=== PATIENT | male | born 1940 | race Caucasian/White ===

== ENCOUNTER 2019-12-21 11:56 | Emergency (ER) | payer MEDICARE, SELFPAY ==
--- NOTE | 2019-12-21 12:00 | ED_ITS ---
Documented by User: ROVERTO Carreon 12/21/19 15:41 HPI - SOB/Dyspnea General: Chief Complaint: Shortness of Breath/Dyspnea Stated Complaint: THINKS HE HAS COVID19 Time Seen by Provider: 12/21/19 12:00 Source: patient Mode of arrival: ambulatory Limitations: no limitations History of Present Illness: HPI Narrative: Patient is a 79-year-old male who presents to ED today with a complaint of shortness of breath and difficulty breathing over the past 3 weeks. Patient notices he becomes very short of breath with any form of exertion and especially with lying flat. He has began noticing bilateral lower extremity leg swelling. He states he has been having intermittent twinges in his chest. Patient does have a previous history of a [place] almost a decade ago and currently has 3 cardiac stents. He has HTN. He denies PND but states he does have anxiety about going to sleep due to the difficulty of breathing. He has not been coughing. No fevers. No recent travel or positive COVID individual exposure. He denies palpitations. MD elicited complaint: shortness of breath Pertinent past history: other (CAD, HTN) Onset (ago): week(s) Timing: constant Severity: moderate Exacerbating factors: lying flat and exertion Relieving factors: upright position Associated symptoms: Reports chest pain, orthopnea and other (LE edema); Deny abdominal pain, chest congestion, fever(s), hemoptysis, lightheadedness, nausea, palpitations, syncope or vomiting Treatment prior to arrival: none Review of Systems Const: Denies: fever(s), chills, body aches, fatigue or malaise Eyes: Denies: change in vision or blurry vision ENMT: Denies: throat pain, enlarged tonsils or odynophagia Card: Reports: chest pain, edema, swelling of feet/ankles, dyspnea on exertion and orthopnea; Denies: palpitations, irregular heart rhythm, lightheadedness, syncope, pre- syncope, leg pain with exertion or acrocyanosis Resp: Reports: dyspnea; Denies: productive cough, non-productive cough, wheezing, stridor, pain on inspiration, change in phlegm color, hemoptysis or chest congestion GI: Denies: abdominal pain, nausea, vomiting, heartburn or diarrhea : Denies: flank pain, difficulty urinating, dysuria, urinary frequency, urinary urgency or urinary hesitancy Musc: Denies: neck pain, back pain or joint pain Skin/Breast: Denies: rash Neuro: Denies: headache(s), numbness in extremities, weakness in extremities or sensory changes PFSH ED PFSH: Social History Smoking and tobacco status: never smoked Physical Exam Const: COMMON NORMALS: no acute distress, patient oriented x3, no limitations and alert HENMT: COMMON NORMALS: normocephalic and atraumatic HEAD & SCALP: normocephalic and atraumatic Neck/C-Spine: COMMON NORMALS: full ROM and no lymphadenopathy GENERAL: No anterior neck swelling, No JVD and No Mass present (neck) Chest: COMMONS NORMALS: normal inspection of the chest and normal palpation of entire chest wall Resp: COMMON NORMALS: normal respiratory effort and clear to auscultation bilaterally AUSCULTATION: clear to auscultation bilaterally Cardio: COMMON NORMALS: regular rate RATE: regular rate RHYTHM: abnormal rhythm irregularly irregular Extremity: COMMON NORMALS: full ROM, capillary refill normal, no joint enlargement and no calf tenderness GENERAL: Yes edema (bilateral 2+ pitting edema ) Neuro: COMMON NORMALS: patient oriented x3 SENSORIUM/ORIENTATION: Yes alert Skin: COMMON NORMALS: no rashes or lesions noted GENERAL SKIN EXAM: no rashes or lesions noted Course Consultations: Consultation #1: Dr. Cooper-cardiology electronic data processing auditor who agrees with plan for IV lasix here and then recommends 40mg BID lasix at home x 4 days then 40mg lasix daily and also recommends placing patient on Eliquis Vital Signs: Vital signs: Vital Signs Temperature 98.0 F 12/21/19 12:03 Pulse Rate 89 12/21/19 14:45 Respiratory Rate 17 12/21/19 14:45 Blood Pressure 163/78 12/21/19 14:45 Pulse Oximetry 95 12/21/19 14:45 MDM - SOB/Dyspnea MDM Narrative: Medical decision making narrative: Patient comes in with complaints of shortness of breath mainly with lying flat and exertion over the past 3 weeks. Clinically patient is fluid overloaded with bilateral lower extremity 2+ pitting edema. BNP is roughly 1900, he has cardiomegaly on his CXR, and trace bilateral effusions. Patient also found to have new onset atrial fibrillation. Patient was offered admission to the hospital however would like to follow-up with his PCP Dr. Armendariz. I spoke to the soaking pit operator on-call who agreed with IV Lasix here and placing patient on Lasix at home as well as placing him on anticoagulation for the atrial fibrillation. Dr. Kline also saw patient and agrees with work-up and treatment plan. Lab Data: Labs: Lab Results 12/21/19 12/21/19 12/21/19 Range/Units 12:57 12:57 12:57 WBC 6.1 (4.0-10.0) 10^3/ uL RBC 4.29 (4.1-5.3) 10^6/u L Hgb 14.0 (11.7-16.6) g/dL Hct 43.0 (42.0-52.0) % MCV 100.2 H (80-94) fL MCH 32.6 (28.0-34.0) pg MCHC 32.6 (30.0-36.0) g/dL RDW 14.0 (12.1-15.1) % Plt Count 111 L (130-400) 10^3/c mm MPV 10.9 H (7.4-10.4) fL Neut % (Auto) 77.3 % Lymph % (Auto) 11.2 % Murray % (Auto) 10.2 % Eos % (Auto) 0.5 % Baso % (Auto) 0.3 % Neut # (Auto) 4.7 (1.8-7.7) 10^3/u L Lymph # (Auto) 0.7 L (0.8-4.8) 10^3/u L Murray # (Auto) 0.6 (0.2-0.9) 10^3/u L Eos # (Auto) 0.0 (0.0-0.8) 10^3/u L Baso # (Auto) 0.0 (0.0-0.1) 10^3/u L Nucleated RBC % (a uto) 0 % Nucleated RBCs # 0.0 /100WBC Sodium 137 (136-145) mmol/L Potassium 4.5 (3.5-5.1) mmol/L Chloride 102 (98-107) mmol/L Carbon Dioxide 23 (22-29) mmol/L Anion Gap 16.5 (5-19) BUN 12 (8-23) mg/dL Creatinine 0.7 (0.7-1.2) mg/dL Glucose 131 H (65-115) mg/dL Calculated Osmolal ity 282 L (285-295) mOsm/k g Calcium 8.4 L (8.5-10.5) mg/dL Total Bilirubin 0.9 (0.15-1.2) mg/dL AST 24 (0-40) U/L ALT 30 (0-41) U/L Alkaline Phosphata se 72 (40-130) IU/L Troponin T Baselin e 11 (0-15) ng/mL NT-Pro-B Natriuret Pep 1960 H (0-450) pg/mL Total Protein 5.5 L (6.6-8.7) g/dL Albumin 4.2 (3.5-5.2) g/dL Globulin 1.3 (1.3-4.6) g/dL TSH (0.27-4.20) uIU/ mL 12/21/19 Range/Units 12:57 WBC (4.0-10.0) 10^3/ uL RBC (4.1-5.3) 10^6/u L Hgb (11.7-16.6) g/dL Hct (42.0-52.0) % MCV (80-94) fL MCH (28.0-34.0) pg MCHC (30.0-36.0) g/dL RDW (12.1-15.1) % Plt Count (130-400) 10^3/c mm MPV (7.4-10.4) fL Neut % (Auto) % Lymph % (Auto) % Murray % (Auto) % Eos % (Auto) % Baso % (Auto) % Neut # (Auto) (1.8-7.7) 10^3/u L Lymph # (Auto) (0.8-4.8) 10^3/u L Murray # (Auto) (0.2-0.9) 10^3/u L Eos # (Auto) (0.0-0.8) 10^3/u L Baso # (Auto) (0.0-0.1) 10^3/u L Nucleated RBC % (a uto) % Nucleated RBCs # /100WBC Sodium (136-145) mmol/L Potassium (3.5-5.1) mmol/L Chloride (98-107) mmol/L Carbon Dioxide (22-29) mmol/L Anion Gap (5-19) BUN (8-23) mg/dL Creatinine (0.7-1.2) mg/dL Glucose (65-115) mg/dL Calculated Osmolal ity (285-295) mOsm/k g Calcium (8.5-10.5) mg/dL Total Bilirubin (0.15-1.2) mg/dL AST (0-40) U/L ALT (0-41) U/L Alkaline Phosphata se (40-130) IU/L Troponin T Baselin e (0-15) ng/mL NT-Pro-B Natriuret Pep (0-450) pg/mL Total Protein (6.6-8.7) g/dL Albumin (3.5-5.2) g/dL Globulin (1.3-4.6) g/dL TSH 2.38 (0.27-4.20) uIU/ mL Imaging Data^: CXR: Radiologist's impression: [address] [address] XRay Report Signed Patient: Jamshid Schaffer Unit #: [id number] : 1940 Age/Sex: 79 / M ADM Date: 12/21/19 Loc: ER Room/Bed: Attending Dr: Ordering Provider/Ordering MD: Lexi Zavala Date of Service: 12/21/19 Procedure(s): XR chest 1V portable [id number] Accession Number(s): [id number] Report Number: [id number] PROCEDURE INFORMATION: Exam: XR Chest, 1 View Exam date and time: 12/21/2019 12:35 PM Age: 79 years old Clinical indication: Cough; Prior surgery; Surgery type: Stents; Additional info: Chest pain TECHNIQUE: Imaging protocol: XR of the chest Views: 1 view. COMPARISON: No relevant prior studies available. FINDINGS: Lungs: No confluent infiltrate evident. Pleural space: Indistinct costophrenic angles may indicate small pleural effusions. Heart/Mediastinum: Mild cardiomegaly. Vasculature: Tortuous/ectatic aorta. Bones/joints: Unremarkable. XR/XR chest 1V portable [id number] IMPRESSION: Mild cardiomegaly. Tortuous aorta. Possible small pleural effusions. Dictated By: Evangelista Lee MD Signed By: Evangelista Lee MD Signed Date/Time: 12/21/191312 DD/ 1312 EKG Data^: EKG 1: EKG Interpretation Date: 12/21/19 EKG interpretation time: 13:04 Interpretation: Atrial fibrillation Rate [address] elevation or depression noted Discharge Plan Discharge Patient Disposition: Home, Self-Care Clinical Impression: New onset atrial fibrillation Congestive heart failure Qualifiers: Heart failure type: unspecified Heart failure chronicity: acute Qualified Code(s): I50.9 - Heart failure, unspecified Condition: Stable Prescriptions: New furosemide 40 mg tablet 40 mg PO BID Qty: 30 RF: 0 Eliquis 5 mg tablet 5 mg PO BID Qty: 60 RF: 0 No Action losartan 50 mg tablet 50 mg PO DAILY RF: 0 clonidine HCl 0.1 mg tablet 0.1 mg PO BID RF: 0 aspirin 325 mg Tablet 325 mg PO DAILY RF: 0 atenolol 100 mg tablet 100 mg PO DAILY RF: 0 clopidogrel 75 mg tablet 75 mg PO DAILY RF: 0 simvastatin 40 mg tablet 40 mg PO DAILY RF: 0 nitroglycerin 0.4 mg tablet, sublingual 0.4 mg sublingual PRN PRN (Reason: Chest Pain) RF: 0 Discharge Orders: Discharge Order (Routine); Ordered 12/21/19 Ordered By: Lexi Zavala Patient Instructions: Congestive Heart Failure, Atrial Fibrillation (ED) Activity Restrictions/Additional Instructions: As discussed please follow up with your primary care provider as soon as possible next week to discuss outpatient work up and management. Again we have offerred you admission to the hospital but you have declined. You may return to the ED at any time for any concerns you may have. Discharge Date/Time: 12/21/19 14:29 Coding Level of Care Code ED Order Entry Representative for Chg Fwd Exam Comprehensive Documented by User: Leti Kline MD 12/23/19 19:10 HPI - SOB/Dyspnea General: Chief Complaint: Shortness of Breath/Dyspnea Stated Complaint: THINKS HE HAS COVID19 Time Seen by Provider: 12/21/19 12:00 [facility] ED PFSH: Social History Smoking and tobacco status: never smoked Course ED course: I saw this patient with Lexi, he came in for shortness of breath and leg swelling. he was found to have new onset atrial fib - rate controlled - and CHF. He does not want to be admitted to the hospital. He wants to follow up with Dr. Armendariz early next week. We discussed the plan for lady durbin, outpatient work up. He understands need to return if worsening. Lungs are clear - he is able to speak in full sentances. Vital Signs: Vital signs: Vital Signs Temperature 98.0 F 12/21/19 12:03 Pulse Rate 89 12/21/19 14:45 Respiratory Rate 17 12/21/19 14:45 Blood Pressure 163/78 12/21/19 14:45 Pulse Oximetry 95 12/21/19 14:45 MDM - SOB/Dyspnea Lab Data: Labs: Lab Results 12/21/19 12/21/19 12/21/19 Range/Units 12:57 12:57 12:57 WBC 6.1 (4.0-10.0) 10^3/ uL RBC 4.29 (4.1-5.3) 10^6/u L Hgb 14.0 (11.7-16.6) g/dL Hct 43.0 (42.0-52.0) % MCV 100.2 H (80-94) fL MCH 32.6 (28.0-34.0) pg MCHC 32.6 (30.0-36.0) g/dL RDW 14.0 (12.1-15.1) % Plt Count 111 L (130-400) 10^3/c mm MPV 10.9 H (7.4-10.4) fL Neut % (Auto) 77.3 % Lymph % (Auto) 11.2 % Murray % (Auto) 10.2 % Eos % (Auto) 0.5 % Baso % (Auto) 0.3 % Neut # (Auto) 4.7 (1.8-7.7) 10^3/u L Lymph # (Auto) 0.7 L (0.8-4.8) 10^3/u L Murray # (Auto) 0.6 (0.2-0.9) 10^3/u L Eos # (Auto) 0.0 (0.0-0.8) 10^3/u L Baso # (Auto) 0.0 (0.0-0.1) 10^3/u L Nucleated RBC % (a uto) 0 % Nucleated RBCs # 0.0 /100WBC Sodium 137 (136-145) mmol/L Potassium 4.5 (3.5-5.1) mmol/L Chloride 102 (98-107) mmol/L Carbon Dioxide 23 (22-29) mmol/L Anion Gap 16.5 (5-19) BUN 12 (8-23) mg/dL Creatinine 0.7 (0.7-1.2) mg/dL Glucose 131 H (65-115) mg/dL Calculated Osmolal ity 282 L (285-295) mOsm/k g Calcium 8.4 L (8.5-10.5) mg/dL Total Bilirubin 0.9 (0.15-1.2) mg/dL AST 24 (0-40) U/L ALT 30 (0-41) U/L Alkaline Phosphata se 72 (40-130) IU/L Troponin T Baselin e 11 (0-15) ng/mL NT-Pro-B Natriuret Pep 1960 H (0-450) pg/mL Total Protein 5.5 L (6.6-8.7) g/dL Albumin 4.2 (3.5-5.2) g/dL Globulin 1.3 (1.3-4.6) g/dL TSH (0.27-4.20) uIU/ mL 12/21/19 Range/Units 12:57 WBC (4.0-10.0) 10^3/ uL RBC (4.1-5.3) 10^6/u L Hgb (11.7-16.6) g/dL Hct (42.0-52.0) % MCV (80-94) fL MCH (28.0-34.0) pg MCHC (30.0-36.0) g/dL RDW (12.1-15.1) % Plt Count (130-400) 10^3/c mm MPV (7.4-10.4) fL Neut % (Auto) % Lymph % (Auto) % Murray % (Auto) % Eos % (Auto) % Baso % (Auto) % Neut # (Auto) (1.8-7.7) 10^3/u L Lymph # (Auto) (0.8-4.8) 10^3/u L Murray # (Auto) (0.2-0.9) 10^3/u L Eos # (Auto) (0.0-0.8) 10^3/u L Baso # (Auto) (0.0-0.1) 10^3/u L Nucleated RBC % (a uto) % Nucleated RBCs # /100WBC Sodium (136-145) mmol/L Potassium (3.5-5.1) mmol/L Chloride (98-107) mmol/L Carbon Dioxide (22-29) mmol/L Anion Gap (5-19) BUN (8-23) mg/dL Creatinine (0.7-1.2) mg/dL Glucose (65-115) mg/dL Calculated Osmolal ity (285-295) mOsm/k g Calcium (8.5-10.5) mg/dL Total Bilirubin (0.15-1.2) mg/dL AST (0-40) U/L ALT (0-41) U/L Alkaline Phosphata se (40-130) IU/L Troponin T Baselin e (0-15) ng/mL NT-Pro-B Natriuret Pep (0-450) pg/mL Total Protein (6.6-8.7) g/dL Albumin (3.5-5.2) g/dL Globulin (1.3-4.6) g/dL TSH 2.38 (0.27-4.20) uIU/ mL Discharge Plan Discharge Patient Disposition: Home, Self-Care Clinical Impression: New onset atrial fibrillation Congestive heart failure Qualifiers: Heart failure type: unspecified Heart failure chronicity: acute Qualified Code(s): I50.9 - Heart failure, unspecified Condition: Stable Prescriptions: New furosemide 40 mg tablet 40 mg PO BID Qty: 30 RF: 0 Eliquis 5 mg tablet 5 mg PO BID Qty: 60 RF: 0 No Action losartan 50 mg tablet 50 mg PO DAILY RF: 0 clonidine HCl 0.1 mg tablet 0.1 mg PO BID RF: 0 aspirin 325 mg Tablet 325 mg PO DAILY RF: 0 atenolol 100 mg tablet 100 mg PO DAILY RF: 0 clopidogrel 75 mg tablet 75 mg PO DAILY RF: 0 simvastatin 40 mg tablet 40 mg PO DAILY RF: 0 nitroglycerin 0.4 mg tablet, sublingual 0.4 mg sublingual PRN PRN (Reason: Chest Pain) RF: 0 Discharge Orders: Discharge Order (Routine); Ordered 12/21/19 Ordered By: Lexi Zavala Patient Instructions: Congestive Heart Failure, Atrial Fibrillation (ED) Activity Restrictions/Additional Instructions: As discussed please follow up with your primary care provider as soon as possible next week to discuss outpatient work up and management. Again we have offerred you admission to the hospital but you have declined. You may return to the ED at any time for any concerns you may have. Discharge Date/Time: 12/21/19 14:29 Coding Level of Care Code ED Order Entry Representative for Susan Fwd Exam Comprehensive
[2019-12-21 12:03] VITALS: BP 191/136; PULSE 91; RESP 18; TEMP 36.7; O2SAT 96; BMI 31.4
[2019-12-21 13:08] LABS: Basophils % 0.3 %; Eosinophils % 0.5 %; Lymphocytes # 0.7 10^3/uL (0.8-4.8); Lymphocytes % 11.2 %; Mean Corpuscular HGB Conc 32.6 g/dL (30.0-36.0); Mean Corpuscular Hemoglobin 32.6 pg (28.0-34.0); Mean Corpuscular Volume 100.2 fL (80-94); Mean Platelet Volume 10.9 fL (7.4-10.4); Monocytes # 0.6 10^3/uL (0.2-0.9); Monocytes % 10.2 %; Neutrophils # 4.7 10^3/uL (1.8-7.7); Neutrophils % 77.3 %; Nucleated Red Blood Cells % 0 %; Platelet Count 111 10^3/cmm (130-400); Red Blood Count 4.29 10^6/uL (4.1-5.3); White Blood Count 6.1 10^3/uL (4.0-10.0)
[2019-12-21 13:20] VITALS: BP 150/78; O2SAT 96
[2019-12-21 13:22] LABS: Troponin(5th) Baseline 11 ng/mL (0-15)
[2019-12-21 13:31] LABS: Alanine Aminotransferase 30 U/L (0-41); Albumin Level 4.2 g/dL (3.5-5.2); Alkaline Phosphatase 72 IU/L (40-130); Anion Gap 16.5 (5-19); Aspartate Amino Transferase 24 U/L (0-40); Blood Urea Nitrogen 12 mg/dL (8-23); Calcium 8.4 mg/dL (8.5-10.5); Carbon Dioxide 23 mmol/L (22-29); Chloride 102 mmol/L (98-107); Globulin 1.3 g/dL (1.3-4.6); Glucose 131 mg/dL (65-115); NT Pro B Type Natriuretic Pept 1960 pg/mL (0-450); Osmolality Calculated 282 mOsm/kg (285-295); Potassium 4.5 mmol/L (3.5-5.1); Sodium 137 mmol/L (136-145); Total Bilirubin 0.9 mg/dL (0.15-1.2); Total Protein 5.5 g/dL (6.6-8.7)
[2019-12-21 14:06] LABS: Thyroid Stimulating Hormone 2.38 uIU/mL (0.27-4.20)
[2019-12-21] MEDS: FUROsemide 10 mg/mL SDV 10mL 60 MG IVP (14:19)
[2019-12-21 14:45] VITALS: BP 163/78; PULSE 89; RESP 17; O2SAT 95
--- NOTE | 2019-12-21 17:59 | ECG_ITS ---
Measurements Intervals [place] Rate: 76 P: IA: 0 QRS: 81 QRSD: 90 T: 4 QT: 410 QTc: 463 ATRIAL FIBRILLATION ABNORMAL RHYTHM ECG No previous ECG available for comparison Electronically Signed On 12-22-2019 11:10:42 CDT by Ronnie Bergeron MD [id number]
--- NOTE | 2019-12-27 11:31 | DCPLANNER ---
Patient is to follow up with primary care physician, Dr. Laguna. Patient did have an appointment scheduled for 12.25.19 and he did attend the appointment.
== END 2019-12-21 14:29 | disposition home or self-care (01) ==
PROVIDERS: Emergency Provider Physician Assistant
DX: I48.91 Unspecified atrial fibrillation (principal); I50.9 Heart failure, unspecified; Z79.82 Long term (current) use of aspirin; Z79.02 Long term (current) use of antithrombotics/antiplatelets
CPT/HCPCS: 12345; 36415; 71045; 80053; 83880; 84443; 84484; 85025; 93005; 93010; 96374; 96375; 99282; 99283; J1940

== ENCOUNTER 2019-12-29 20:05 | Emergency (ER) | payer MEDICARE, SELFPAY ==
[2019-12-29 20:17] VITALS: BP 153/82; PULSE 71; RESP 14; TEMP 36.3; O2SAT 96; BMI 31.4
--- NOTE | 2019-12-29 20:49 | W.ED.EPISTAX ---
HPI - Epistaxis General: Chief complaint: Epistaxis Stated complaint: nosebleed Time Seen by Provider: 12/29/19 20:44 Source: patient Mode of arrival: ambulatory Limitations: no limitations History of Present Illness: HPI Narrative: 79-year-old male who states he started Eliquis last week due to A. fib. Patient states that roughly 1-1/2 hours ago he started having nosebleed from the left nostril. He states that he has not been able to get it to stop. He denies any pain or injuries. Denies any worsening or improving factors. complaint: epistaxis Location: right nostril Onset (ago): hour(s) Duration: constant Context: other anticoagulant use Associated symptoms: Deny fever(s), headache(s) or vomiting Review of Systems Const: Denies: fever(s), chills, body aches or change in appetite Eyes: Denies: blurry vision or eye discomfort ENMT: Reports: epistaxis; Denies: throat pain or dental pain Card: Denies: chest pain Resp: Denies: dyspnea GI: Denies: abdominal pain, nausea, vomiting or diarrhea : Denies: dysuria Musc: Denies: neck pain or back pain Skin/Breast: Denies: rash Neuro: Denies: headache(s) Psych: Denies: depression Hermelindo/Lymph: Denies: easy bruising All/Imm: Denies: urticaria PFSH ED PFSH: Social History Smoking and tobacco status: former smoker Physical Exam Const: COMMON NORMALS: no acute distress, patient oriented x3 and healthy appearing HENMT: COMMON NORMALS: normocephalic and atraumatic HEAD & SCALP: normocephalic and atraumatic OTHER: Bleeding from left nare currently Eye: COMMON NORMALS: Equal, round and reactive pupils present and EOMs intact bilaterally PUPIL: Yes Equal, round and reactive pupils present Neck/C-Spine: COMMON NORMALS: full ROM and supple Chest: COMMONS NORMALS: normal inspection of the chest and normal palpation of entire chest wall Resp: COMMON NORMALS: normal respiratory effort, No retractions, No use of accessory muscles and clear to auscultation bilaterally AUSCULTATION: clear to auscultation bilaterally Cardio: COMMON NORMALS: regular rate, regular rhythm and No murmurs present (Cardio) RATE: regular rate RHYTHM: regular rhythm GI: COMMON NORMALS: Normal to inspection, nondistended, normoactive bowel sounds present, Soft to palpation, non-tender and no masses PALPATION: Yes Soft to palpation Extremity: COMMON NORMALS: normal to inspection and full ROM Neuro: COMMON NORMALS: patient oriented x3, moves all extremities and no focal motor deficits Psych: COMMON NORMALS: mental status grossly normal, Normal thought process present and cooperative THOUGHT PROCESS: Normal thought process present Skin: COMMON NORMALS: no rashes or lesions noted and no wounds GENERAL SKIN EXAM: no rashes or lesions noted Course Vital Signs: Vital signs: Vital Signs Temperature 97.3 F L 12/29/19 20:17 Pulse Rate 71 12/29/19 20:17 Respiratory Rate 14 12/29/19 20:17 Blood Pressure 153/82 12/29/19 20:17 Pulse Oximetry 96 12/29/19 20:17 MDM - Epistaxis MDM Narrative: Medical decision making narrative: Patient presents with epistaxis that is since resolved. I informed him on how to treat his nosebleeds at home. He is to follow-up with Dr. Cristobal ENT outpatient and return the ER if worsening. He understands agrees to plan. Lab Data: Labs: Lab Results 12/29/19 Range/Units 20:30 PT 16.00 H (10.5-13.3) SECO NDS INR 1.24 H (0.8-1.2) Discharge Plan Discharge Patient Disposition: Home, Self-Care Clinical Impression: Epistaxis Condition: Stable Prescriptions: No Action losartan 50 mg tablet 50 mg PO DAILY RF: 0 clonidine HCl 0.1 mg tablet 0.1 mg PO BID RF: 0 aspirin 325 mg Tablet 325 mg PO DAILY RF: 0 atenolol 100 mg tablet 100 mg PO DAILY RF: 0 clopidogrel 75 mg tablet 75 mg PO DAILY RF: 0 simvastatin 40 mg tablet 40 mg PO DAILY RF: 0 nitroglycerin 0.4 mg tablet, sublingual 0.4 mg sublingual PRN PRN (Reason: Chest Pain) RF: 0 furosemide 40 mg tablet 40 mg PO BID Qty: 30 RF: 0 Eliquis 5 mg tablet 5 mg PO BID Qty: 60 RF: 0 Discharge Orders: Discharge Order (Routine); Ordered 12/29/19 Ordered By: Jaxon Mai Referrals: Paul Cuellar MD [Physician] - 1-3 days Discharge Diet: Advance as tolerated Discharge Activity: Resume usual activity Patient Instructions: Epistaxis (ED) Coding Level of Care Code ED Tank Pumper Panelboard for Chg Fwd Exam Comprehensive
[2019-12-29] MEDS: oxymetazoline 0.05% Nasal Spray 15 mL 2 SPRAY NOSTRIL-B (20:51)
[2019-12-29 20:52] LABS: INR 1.24 (0.8-1.2)
[2019-12-29 23:21] VITALS: BP 132/84; PULSE 76; RESP 16; O2SAT 98
--- NOTE | 2020-01-01 11:34 | DCPLANNER ---
education and training manager had message to schedule a follow up appointment for patient with Dr. Cuellar, ENT. education and training manager faxed patients information to the office of Dr. Cuellar. Clinic will call high risk case manager and patient with appointment information.
--- NOTE | 2020-01-15 14:54 | DCPLANNER ---
city maintenance manager spoke with Dr. Ge office to confirm that a follow up appointment had been scheduled for patient with Dr. Cuellar. city maintenance manager was told patient was called and offered to schedule a follow up appointment for patient, he declined at this time.
== END 2019-12-29 23:23 | disposition home or self-care (01) ==
PROVIDERS: Emergency Provider Emergency Medicine
DX: R04.0 Epistaxis (principal); Z79.02 Long term (current) use of antithrombotics/antiplatelets; Z79.82 Long term (current) use of aspirin; Z79.01 Long term (current) use of anticoagulants; Z87.891 Personal history of nicotine dependence
CPT/HCPCS: 12345; 36415; 85610; 99281; 99283

== ENCOUNTER 2020-02-13 14:09 | Outpatient (CLI) | payer MEDICARE, SELFPAY ==
--- NOTE | 2020-02-13 14:15 | USCV_ITS ---
Jamshid Schaffer Age: 79 Gender: M : 1940 Exam Date: 02/13/2020 14:28 Ordering Phys: Sandrita Rockwell MD ([email or web address]) Technologist: Marissa Burr Exam Location: [facility] – [place] Indication: MUMUR BP: / HR: 76 Rhythm: Sinus Technical Quality: Fair MEASUREMENTS (Male / Female) Normal Values 2D ECHO LV Diastolic Diameter PLAX 4.5 cm 4.2 - 5.9 / 3.9 - 5.3 cm LV Systolic Diameter PLAX 2.9 cm LV Chamber Size 4.0 cm IVS Diastolic Thickness 1.2 cm 0.6 - 1.0 / 0.6 - 0.9 cm IVS Systolic Thickness 1.2 cm LVPW Diastolic Thickness 1.4 cm 0.6 - 1.0 / 0.6 - 0.9 cm LVPW Systolic Thickness 1.8 cm RV Chamber Size 3.7 cm LVOT Diameter 2.0 cm LV Ejection Fraction 2D Teich 64.5 % LV Ejection Fraction MOD 2C 19.3 % LV Ejection Fraction 2C AL 18.3 % LA Diameter 5.0 cm LA Width 3.9 cm LA Height 5.7 cm RA Width 4.6 cm RA Height 5.9 cm Aorta at Sinotubular Diameter 3.3 cm M-MODE LV Diastolic Diameter MM 6.2 cm 4.2 - 5.9 / 3.9 - 5.3 cm LV Systolic Diameter MM 4.3 cm LV Ejection Fraction MM Teich 58.2 % IVS Diastolic Thickness MM 1.1 cm 0.6 - 1.0 / 0.6 - 0.9 cm IVS Systolic Thickness MM 1.2 cm LVPW Diastolic Thickness MM 1.1 cm 0.6 - 1.0 / 0.6 - 0.9 cm LVPW Systolic Thickness MM 1.8 cm RV Diastolic Diameter MM 1.3 cm Aortic Annulus Diameter 3.7 cm LA Ao Ratio MM 1.4 MV E Point Septal Separation 0.9 cm DOPPLER AV Peak Velocity 139.0 cm/s LVOT Peak Velocity 93.0 cm/s AV Area Cont Eq vti 1.8 cm squared AV Area Cont Eq pk 2.1 cm squared MV Area PHT 3.4 cm squared MV E' Velocity 15.0 cm/s Mitral E to MV E' Ratio 8.3 Mitral E to LV E' Lateral Ratio 7.5 Mitral E to LV E' Septal Ratio 9.3 TR Peak Velocity 274.1 cm/s TR Peak Gradient 30.1 mmHg TR Mean Velocity 225.3 cm/s TR Mean Gradient 21.5 mmHg TR Velocity Time Integral 87.3 cm TV Peak E Velocity 91.0 cm/s Right Atrial Pressure 3.0 mmHg Pulmonary Artery Systolic Pressu 33.1 mmHg PV Peak Velocity 99.0 cm/s RV Acceleration Time 0.1 s RV Ejection Time 0.3 s RV AcT/ET 0.4 FINDINGS Left Ventricle Normal left ventricular cavity size. Normal left ventricular systolic function. No regional wall motion abnormalities. Left ventricular ejection fraction is estimated at 58 %. In the presence of atrial fibrillation diastolic function cannot be assessed accurately Right Ventricle The right ventricle is normal in size and function. Mild pulmonary hypertension, RVSP 33.1 mmHg. Right Atrium Moderately increased right atrial size. Left Atrium Moderately increased left atrial size. Mitral Valve Severely thickened mitral valve. Moderate mitral annular calcification. No mitral valve stenosis. Moderate mitral valve regurgitation. Aortic Valve Moderate aortic valve calcification. Mild aortic valve stenosis, mean gradient 4.4 mmHg, EVIE 1.8 cm squared.trace aortic valve regurgitation. Tricuspid Valve Moderate to severe tricuspid valve regurgitation. Pulmonic Valve Mild pulmonary valve regurgitation. Pericardium Normal pericardium without effusion. Aorta Normal ascending aorta dimension. CONCLUSIONS 1-Normal left ventricular cavity size. Normal left ventricular systolic function. No regional wall motion abnormalities. Left ventricular ejection fraction is estimated at 58 %. In the presence of atrial fibrillation diastolic function cannot be assessed accurately. 2-The right ventricle is normal in size and function. Mild pulmonary hypertension, RVSP 33.1 mmHg. 3-Moderate biatrial enlargement 4-Severely thickened mitral valve. Moderate mitral annular calcification. No mitral valve stenosis. Moderate mitral valve regurgitation. 5-Moderate aortic valve calcification. Mild aortic valve stenosis, mean gradient 4.4 mmHg, EVIE 1.8 cm squared.trace aortic valve regurgitation. 6-Moderate to severe tricuspid valve regurgitation. 7-Mild pulmonary valve regurgitation. 8-There is no pericardial effusion. 9-Right atrial pressure is around 5 mm of mercury. 10-There are no prior echocardiogram studies to compare. Sandrita oRckwell MD (Electronically Signed) Final Date: 15 February 2020 21:12 S
== END 2020-02-13 14:10 | disposition home or self-care (01) ==
LOC: US 14:12
PROVIDERS: PCP Family Medicine; Visit Provider Internal Medicine Cardiovascular Disease
DX: R01.1 Cardiac murmur, unspecified (principal); I05.9 Rheumatic mitral valve disease, unspecified; I35.0 Nonrheumatic aortic (valve) stenosis; I07.1 Rheumatic tricuspid insufficiency
CPT/HCPCS: 93306

== ENCOUNTER 2021-11-04 14:04 | Outpatient (CLI) | payer MEDICARE, SELFPAY ==
--- NOTE | 2021-11-04 14:15 | USCV_ITS ---
Sarbjit Jamshid Age: 81 Gender: M : 1940 Exam Date: 11/04/2021 14:30 Ordering Phys: Blanca Burkett Technologist: Rony Mitchell Exam Location: [facility] – [place] Indication: HEART FAILURE BP: 130 / 82 HR: 82 Rhythm: Other Technical Quality: Adequate MEASUREMENTS (Male / Female) Normal Values 2D ECHO LV Diastolic Diameter PLAX 5.4 cm 4.2 - 5.9 / 3.9 - 5.3 cm LV Systolic Diameter PLAX 3.9 cm IVS Diastolic Thickness 0.6 cm 0.6 - 1.0 / 0.6 - 0.9 cm IVS Systolic Thickness 1.6 cm LVPW Diastolic Thickness 0.9 cm 0.6 - 1.0 / 0.6 - 0.9 cm LVPW Systolic Thickness 1.7 cm LVOT Diameter 2.0 cm LV Ejection Fraction 2D Teich 52.7 % LV Ejection Fraction MOD 2C 68.4 % LV Ejection Fraction 2C AL 70.9 % LA Diameter 4.6 cm LA Width 3.7 cm LA Height 6.8 cm RA Width 4.4 cm RA Height 6.7 cm Aorta at Sinotubular Diameter 2.4 cm M-MODE Aortic Annulus Diameter 2.9 cm LA Ao Ratio MM 1.6 DOPPLER AV Peak Velocity 134.0 cm/s LVOT Peak Velocity 89.0 cm/s AV Area Cont Eq vti 2.0 cm squared AV Area Cont Eq pk 2.1 cm squared MV Area PHT 7.1 cm squared Mitral E to A Ratio 2.4 MV E' Velocity 64.5 cm/s Mitral E to MV E' Ratio 1.7 Mitral E to LV E' Lateral Ratio 6.1 Mitral E to LV E' Septal Ratio 1.0 TR Peak Velocity 411.6 cm/s TR Peak Gradient 67.8 mmHg TR Mean Velocity 268.0 cm/s TR Mean Gradient 34.0 mmHg TR Velocity Time Integral 110.6 cm Right Atrial Pressure 3.0 mmHg Pulmonary Artery Systolic Pressu 70.8 mmHg RV Acceleration Time 0.1 s RV Ejection Time 0.3 s RV AcT/ET 0.3 FINDINGS Left Ventricle Normal left ventricular size, systolic function and wall thickness, with no diagnostic regional wall motion abnormalities. Left ventricular ejection fraction is estimated at 55-60 %. Flattened septum in systole consistent with right ventricle pressure overload. Rhythm precludes evaluation of diastolic function. Right Ventricle Mildly dilated right ventricular size and mildly decreased systolic function. Right ventricular systolic pressure 64 mmHg. Right Atrium Moderately increased right atrial size. Left Atrium Moderately increased left atrial size. Mitral Valve Mild to moderate mitral annular calcification. Mildly thickened mitral valve. Restricted movement of posterior mitral leaflet. Mild eccentric posteriorly directed mitral valve regurgitation. Aortic Valve Mildly thickened trileaflet aortic valve. No aortic valve stenosis. No aortic valve regurgitation. Tricuspid Valve Structurally normal tricuspid valve. No tricuspid valve stenosis. Gzop-cb-[id number] tricuspid valve regurgitation. Pulmonic Valve Structurally normal pulmonic valve. No pulmonary valve stenosis. Mild pulmonary valve regurgitation. Pericardium No pericardial effusion. Aorta Normal size aortic root and proximal ascending aorta. Dilated inferior vena cava. CONCLUSIONS 1. Normal left ventricular size, systolic function and wall thickness, with no diagnostic regional wall motion abnormalities. Left ventricular ejection fraction is estimated at 55-60 %. 2. Mildly dilated right ventricular size and mildly decreased systolic function. 3. Moderate biatrial enlargement. 4. Restricted movement of posterior mitral leaflet. Mild eccentric posteriorly directed mitral valve regurgitation. 5. Ruto-ky-owgonsso tricuspid valve regurgitation. 6. Flattened septum in systole consistent with right ventricle pressure overload. 7. Severe pulmonary hypertension with pulmonary pressure estimated at 64 mmHg. 8. When compared to previous echocardiogram dated 02/13/2020, pulmonary artery pressure seems to have increased significantly. Zahraa Ndiaye MD (Electronically Signed) Final Date: 09 November 2021 12:58 S
== END 2021-11-04 14:05 | disposition home or self-care (01) ==
PROVIDERS: PCP Family Medicine; Visit Provider Nurse Practitioner Family
DX: I50.9 Heart failure, unspecified (principal); I27.20 Pulmonary hypertension, unspecified; I08.1 Rheumatic disorders of both mitral and tricuspid valves
CPT/HCPCS: 93306

== ENCOUNTER → 2021-12-23 10:29 | Outpatient (BNVA) | payer MEDICARE, SELFPAY | PROVIDERS: PCP Family Medicine; Visit Provider Internal Medicine Cardiovascular Disease | DX: I11.0 Hypertensive heart disease with heart failure (principal); I50.32 Chronic diastolic (congestive) heart failure; I27.20 Pulmonary hypertension, unspecified; I25.10 Atherosclerotic heart disease of native coronary artery without angina pectoris; I48.0 Paroxysmal atrial fibrillation; Z87.891 Personal history of nicotine dependence | CPT/HCPCS: 99214 ==

== ENCOUNTER → 2022-01-06 13:28 | Outpatient (BNVA) | payer MEDICARE, SELFPAY | PROVIDERS: PCP Family Medicine; Visit Provider Family Medicine | DX: I27.0 Primary pulmonary hypertension (principal); Z79.01 Long term (current) use of anticoagulants; I50.9 Heart failure, unspecified; D69.6 Thrombocytopenia, unspecified; R73.9 Hyperglycemia, unspecified; I10 Essential (primary) hypertension; E78.5 Hyperlipidemia, unspecified; I25.10 Atherosclerotic heart disease of native coronary artery without angina pectoris; I48.91 Unspecified atrial fibrillation | CPT/HCPCS: 80053; 80061; 82607; 83036; 84443; 85025; 86769; 87635 ==

== ENCOUNTER → 2022-02-10 12:08 | Outpatient (BNVA) | payer MEDICARE, SELFPAY | PROVIDERS: PCP Family Medicine; Visit Provider Family Medicine | DX: I50.9 Heart failure, unspecified (principal); I48.91 Unspecified atrial fibrillation; D69.6 Thrombocytopenia, unspecified; Z79.01 Long term (current) use of anticoagulants | CPT/HCPCS: 85610 ==

== ENCOUNTER → 2022-02-24 09:42 | Outpatient (BNVA) | payer MEDICARE, SELFPAY | PROVIDERS: PCP Family Medicine; Visit Provider Nurse Practitioner Family | DX: I11.0 Hypertensive heart disease with heart failure (principal); I50.9 Heart failure, unspecified; I48.0 Paroxysmal atrial fibrillation | CPT/HCPCS: 99213; 99214 ==

== ENCOUNTER → 2022-04-28 11:49 | Outpatient (BNVA) | payer MEDICARE, SELFPAY | PROVIDERS: PCP Family Medicine; Visit Provider Family Medicine | DX: I27.20 Pulmonary hypertension, unspecified (principal); I50.9 Heart failure, unspecified; I48.0 Paroxysmal atrial fibrillation; I10 Essential (primary) hypertension; I25.10 Atherosclerotic heart disease of native coronary artery without angina pectoris; I27.0 Primary pulmonary hypertension; Z79.01 Long term (current) use of anticoagulants; D69.6 Thrombocytopenia, unspecified; R73.9 Hyperglycemia, unspecified; E78.5 Hyperlipidemia, unspecified; I48.91 Unspecified atrial fibrillation | CPT/HCPCS: 80053; 80061; 85025; 85610 ==

== ENCOUNTER → 2023-07-19 12:22 | Outpatient (BNVA) | payer MEDICARE, SELFPAY | PROVIDERS: PCP Family Medicine; Visit Provider Internal Medicine Cardiovascular Disease | DX: I25.10 Atherosclerotic heart disease of native coronary artery without angina pectoris (principal); I48.0 Paroxysmal atrial fibrillation; Z79.01 Long term (current) use of anticoagulants; I11.0 Hypertensive heart disease with heart failure; I50.9 Heart failure, unspecified | CPT/HCPCS: 99214 ==

== ENCOUNTER → 2023-09-28 09:55 | Outpatient (BNVA) | payer MEDICARE, SELFPAY | PROVIDERS: PCP Family Medicine; Referring Provider Family Medicine; Visit Provider Nurse Practitioner Family | DX: I25.10 Atherosclerotic heart disease of native coronary artery without angina pectoris (principal); I11.0 Hypertensive heart disease with heart failure; I50.9 Heart failure, unspecified; I48.0 Paroxysmal atrial fibrillation; Z87.891 Personal history of nicotine dependence; Z79.01 Long term (current) use of anticoagulants | CPT/HCPCS: 99214 ==

== ENCOUNTER → 2023-10-10 10:59 | Outpatient (BNVA) | payer MEDICARE, SELFPAY | PROVIDERS: PCP Family Medicine; Visit Provider Family Medicine | DX: I25.10 Atherosclerotic heart disease of native coronary artery without angina pectoris (principal); I10 Essential (primary) hypertension; I50.9 Heart failure, unspecified | CPT/HCPCS: 80053; 80061; 84443; 85025 ==

== ENCOUNTER → 2024-01-17 11:55 | Outpatient (BNVA) | payer MEDICARE, SELFPAY | PROVIDERS: PCP Family Medicine; Visit Provider Internal Medicine Cardiovascular Disease | DX: I25.10 Atherosclerotic heart disease of native coronary artery without angina pectoris (principal); I48.0 Paroxysmal atrial fibrillation; I11.0 Hypertensive heart disease with heart failure; I50.9 Heart failure, unspecified; Z79.01 Long term (current) use of anticoagulants; I27.20 Pulmonary hypertension, unspecified; D69.6 Thrombocytopenia, unspecified; Z95.5 Presence of coronary angioplasty implant and graft; Z87.891 Personal history of nicotine dependence | CPT/HCPCS: 99214 ==

== ENCOUNTER → 2024-01-18 15:09 | Outpatient (BNVA) | payer MEDICARE, SELFPAY | PROVIDERS: PCP Family Medicine; Visit Provider Family Medicine | DX: D69.6 Thrombocytopenia, unspecified (principal); Z79.01 Long term (current) use of anticoagulants | CPT/HCPCS: 80053; 80503; 82607; 85025; 85610; 85651; 86140 ==

== ENCOUNTER → 2024-02-13 11:14 | Outpatient (BNVA) | payer MEDICARE, SELFPAY | PROVIDERS: PCP Family Medicine; Visit Provider Family Medicine | DX: I48.91 Unspecified atrial fibrillation (principal) | CPT/HCPCS: 85610 ==

== ENCOUNTER → 2024-03-19 11:47 | Outpatient (BNVA) | payer MEDICARE, SELFPAY | PROVIDERS: PCP Family Medicine; Visit Provider Family Medicine | DX: Z79.01 Long term (current) use of anticoagulants (principal); I10 Essential (primary) hypertension; I50.9 Heart failure, unspecified; I48.0 Paroxysmal atrial fibrillation; D69.6 Thrombocytopenia, unspecified | CPT/HCPCS: 80048; 83880; 85025; 85610 ==

== ENCOUNTER → 2024-05-22 11:10 | Outpatient (BNVA) | payer MEDICARE, SELFPAY | PROVIDERS: PCP Family Medicine; Visit Provider Family Medicine | DX: I10 Essential (primary) hypertension (principal); I50.9 Heart failure, unspecified; I25.10 Atherosclerotic heart disease of native coronary artery without angina pectoris; D69.6 Thrombocytopenia, unspecified; I48.0 Paroxysmal atrial fibrillation; Z79.01 Long term (current) use of anticoagulants | CPT/HCPCS: 80053; 80061; 85025; 85610 ==

== ENCOUNTER → 2024-10-17 12:07 | Outpatient (BNVA) | payer MEDICARE, SELFPAY | PROVIDERS: PCP Family Medicine; Visit Provider Family Medicine | DX: I50.9 Heart failure, unspecified (principal); I27.20 Pulmonary hypertension, unspecified; D69.6 Thrombocytopenia, unspecified; I48.0 Paroxysmal atrial fibrillation; Z79.01 Long term (current) use of anticoagulants; R35.1 Nocturia | CPT/HCPCS: 80053; 83880; 84153; 85025 ==

== ENCOUNTER → 2024-12-04 12:41 | Outpatient (BNVA) | payer MEDICARE, SELFPAY | PROVIDERS: PCP Family Medicine; Visit Provider Internal Medicine Cardiovascular Disease | DX: I48.0 Paroxysmal atrial fibrillation (principal); I25.10 Atherosclerotic heart disease of native coronary artery without angina pectoris; I27.20 Pulmonary hypertension, unspecified; I50.9 Heart failure, unspecified; I87.2 Venous insufficiency (chronic) (peripheral); Z87.891 Personal history of nicotine dependence; I11.0 Hypertensive heart disease with heart failure | CPT/HCPCS: 99214 ==

== ENCOUNTER → 2024-12-06 11:02 | Outpatient (BNVA) | payer MEDICARE, SELFPAY | PROVIDERS: PCP Family Medicine; Visit Provider Family Medicine | DX: Z79.01 Long term (current) use of anticoagulants (principal); I50.9 Heart failure, unspecified; I27.20 Pulmonary hypertension, unspecified; D69.6 Thrombocytopenia, unspecified; I48.0 Paroxysmal atrial fibrillation | CPT/HCPCS: 85610 ==

== ENCOUNTER → 2024-12-19 12:05 | Outpatient (BNVA) | payer MEDICARE, SELFPAY | PROVIDERS: PCP Family Medicine; Visit Provider Family Medicine | DX: R30.0 Dysuria (principal) | CPT/HCPCS: 81000 ==

== ENCOUNTER 2025-03-06 18:48 | Inpatient (IN) | payer MEDICARE, SELFPAY ==
[2025-03-06] VITALS (11 sets, daily range): BP systolic 108–137; BP diastolic 61–91; PULSE 73–100; RESP 18; TEMP 36.6; O2SAT 90–100; BMI 30.4
--- OUTSIDE RECORDS SUMMARY | 2025-03-06 19:06 | XMS_ITS | Clinical Summary ---
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 03/02/2009 - Elective intervention with deployment of 2.5x12 mm Xience stent to the mid LAD and 2.5 x 12 mm Xience stent to the distal LAD HTN (hypertension), benign 02/27/2009 ACS (acute coronary syndrome) 02/27/2009 Hypercholesteremia 02/27/2009 Resolved Problems Problem Noted Date Diagnosed Date Resolved Date Pseudophakia of right eye 04/15/2014 Family History Medical History Relation Name Comments Amblyopia Neg Hx Blindness Neg Hx Detachment/Tears Neg Hx Glaucoma Neg Hx Macular Degen Neg Hx Strabismus Neg Hx Social History Tobacco Use Types Packs/Day Years Used Date Smoking Tobacco: Former Cigarettes Q uit: 04/04/2009 Smokeless Tobacco: Never Alcohol Use Standard Drinks/Week Comments Yes 11.7 (1 standard drink = 0.6 oz pure alcohol) Sex and Gender Information Value Date Recorded Sex Assigned at Not on file Legal Sex Male 9:58 AM PILE DRIVER OPERATOR HELPER Gender Identity Not on file Sexual Orientation Not on file Last Filed Vital Signs Vital Sign Reading Time Taken Comments Blood Pressure 165/77 08/19/2014 8:59 AM PILE DRIVER OPERATOR HELPER Pulse 67 08/19/2014 8:59 AM PILE DRIVER OPERATOR HELPER Temperature - - Respiratory Rate - - Oxygen Saturation - - Inhaled Oxygen Concentration - - Weight 104.3 kg (230 lb) 08/19/2014 8:59 AM PILE DRIVER OPERATOR HELPER Height 172.7 cm (5' 8 ) 08/19/2014 8:59 AM PILE DRIVER OPERATOR HELPER Body Mass Index 34.97 08/19/2014 8:59 AM PILE DRIVER OPERATOR HELPER Plan of Treatment Health Maintenance Due Date Last Done Comments DTAP/TDAP/TD VACCINES (1 - Tdap) 11/03/1959 PNEUMOCOCCAL VACCINE 50+ YEARS (1 of 1 - PCV) 11/02/18 91 ZOSTER VACCINE (1 of 2) 1990 RSV VACCINE (60+ or ) (1 - 1-dose 75+ series) 11/03/2015 INFLUENZA VACCINE (#1) 2025 Medical Devices Implanted Type Area Respite Provider Device Identifier Shelf Expiration Date Model / Serial / Lot Lens Io [id number] 10.0 - [id number] Implanted:Qty: 1 on 04/09/2014 by Jasiel Macdonald MD Eye [employer] 11/07/2018 [id number] / [id number] / Description:TIA Tecnis ZA 90 03 +10.0 D Lens Io Tecnis 1pc 11.5 [id number] - [id number] Implanted:Qty: 1 on 07/09/2014 by Jasiel Macdonald MD Eye Left: Eye [employer] 01/07/2018 [id number] / [id number] / Care Teams Energy And Sustainability Manager Relationship Specialty Start Date End Date Chapincito Laguna DO [address] [place] [address] PCP - General 02/27/09
--- OUTSIDE RECORDS SUMMARY | 2025-03-06 19:06 | XMS_ITS | Clinical Summary ---
Author Organization [facility] Address [address] [place] [address] Phone Care Team Providers Care Dining Server Name Role Phone Chapincito Laguna DO Primary Care Provider [phone] Allergies No known active allergies Medications atenolol (TENORMIN) 100 mg Oral Tab Take 100 mg by mouth daily. Active aspirin (ECOTRIN EC) 325 mg Oral TbEC Take 1 Tab by mouth daily. Do not stop your Aspirin or Plavix unless directed by a Securities Lending Trader 1 Tab 1 9 Active simvastatin (ZOCOR) 20 mg Oral Tab Take 1 Tab by mouth daily with supper. 30 Tab 11 9 Active nitroglycerin (NITROSTAT) 0.[address] 1 Tab under tongue every 5 minutes as needed for Chest Pain. 25 Tab 3 9 Active clopidogrel (PLAVIX) 75 mg Oral Tab Take 1 Tab by mouth daily. Do not stop your Aspirin or Plavix unless directed by a Securities Lending Trader 30 Tab 11 0 Active bromfenac (PROLENSA) 0.07 % Drops solution Administer 1 Drop in right eye daily. 3 mL 0 4 Active losartan (COZAAR) 50 mg tablet 50 mg daily. Takes half a tablet in the evening 4 Active cloNIDine HCl (CATAPRES) 0.1 mg tablet Take 0.1 mg by mouth Daily LATE. Active DUREZOL 0.05 % solution Administer 1 Drop in right eye 4 times daily. To the operative/affect ed eye. 5 mL 0 4 Active prednisoLONE acetate (PRED FORTE) 1 % suspension 1 Drop by See Admin Instructions route 4 times daily. 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 04/30 Tobacco abuse 03/01/2009 Acute Inferior Myocardial In farction, Initial Episode of Care 02/28/2009 ACS (acute coronary syndrome) 02/27/2009 CAD (coronary artery disease) 02/27/2009 Overview (03/03/2009): 02/27/2009 - Coronary angiography for evaluation of [...] the distal LAD HTN (hypertension), benign 02/27/2009 Hypercholesteremia 02/27/2009 Resolved Problems Problem Noted [...] Standard Drinks/Week Comments Yes 11.7 (1 standard dri nk = 0.6 oz pure alcohol) 2 mixed drinks before dinner nightly Sex and Gender Information Value Date Recorded Sex Assigned at Not on file Legal Sex Male 7:23 AM FRONT DESK COORDINATOR Gender Identity Not on file Sexual Orientation Not on file Occupation Industry Job Start Date Job End Date Not on file Not on file Not on file Not on file Not on file Not on file Not on file Not on file Last Filed Vital Signs Vital Sign Reading Time Taken Comments Blood Pressure 165/77 08/19/2014 8:59 AM FRONT DESK COORDINATOR Pulse 67 08/19/2014 8:59 AM FRONT DESK COORDINATOR Temperature 36.8 C (98.2 F) 07/09/2014 11:24 AM FRONT DESK COORDINATOR Respiratory Rate 16 07/09/2014 11:24 AM FRONT DESK COORDINATOR Oxygen Saturation 97% 07/09/2014 11:24 AM FRONT DESK COORDINATOR Inhaled Oxygen Concentration - - Weight 104.3 kg (230 lb) 08/19/2014 8:59 AM FRONT DESK COORDINATOR Height 172.7 cm (5' 8 ) 08/19/2014 8:59 AM FRONT DESK COORDINATOR Body Mass Index 34.97 08/19/2014 8:59 AM FRONT DESK COORDINATOR Plan of Treatment Health Maintenance Due Date Last Done Comments DTAP/TDAP/TD VACCINES (1 - Tdap) 11/03/1959 PNEUMOCOCCAL VACCINE 50+ YEARS (1 of 1 - PCV) 11/02/18 91 ZOSTER VACCINE (1 of 2) 1990 RSV VACCINE (60+ or ) (1 - 1-dose 75+ series) 11/03/2015 INFLUENZA VACCINE (#1) 2025 Medical Devices Implanted Type Area First Aid Instructor Device Identifier Shelf Expiration Date Model / Serial / Lot Lens Io [id number] 10.0 - [id number] Implanted:Qty: 1 on 04/09/2014 by Jasiel Macdonald MD at [facility] Eye [employer] 11/07/2018 [id number] / [id number] / Description:TIA Tecnis ZA 90 03 +10.0 D Lens Io Tecnis 1pc 11.5 [id number] - [id number] Implanted:Qty: 1 on 07/09/2014 by Jasiel Macdonald MD at [facility] Left: Eye [employer] 01/07/2018 [id number] / [id number] / Insurance MEDICARE PART A AND B Advance Directives For more information, please contact: [phone] * Full Code (Latest Code Status on File) Date Activated Date Inactivated Comments 07/09/2014 9:18 AM 07/09/2014 1:44 PM * Full Code Date Activated Date Inactivated Comments 04/09/2014 8:07 AM 04/09/2014 12:25 PM * Full Code Date Activated Date Inactivated Comments 02/27/2009 8:26 PM 03/03/2009 3:22 PM Care Teams Dining Server Relationship Specialty Start Date End Date Chapincito Laguna DO [address] [place] [id number] PCP - General 02/27/09
--- NOTE | 2025-03-06 19:14 | XRR_ITS ---
PROCEDURE INFORMATION: Exam: XR Right Tibia and Fibula Exam date and time: 03/06/2025 7:25 PM Age: 84 years old Clinical indication: Swelling, leg or foot; Additional info: Wound, weeping TECHNIQUE: Imaging protocol: Radiologic exam of the right tibia and fibula. Views: 2 views. COMPARISON: No relevant prior studies available. FINDINGS: Bones/joints: Small heel spurs. Mild patellofemoral bony degenerative change. Soft tissues: Atheromatous vascular calcifications of the runoff vessels. Possible nonspecific subcutaneous edema. XR/XR tibia fibula RT 2V [id number] IMPRESSION: No acute findings.
--- NOTE | 2025-03-06 19:15 | CTR_ITS ---
PROCEDURE INFORMATION: Exam: CT Head Without Contrast Exam date and time: 03/06/2025 7:55 PM Age: 84 years old Clinical indication: Injury or trauma; Fall; Concussion/head injury; Additional info: Fall/unk head inj TECHNIQUE: Imaging protocol: Computed tomography of the head without contrast. Radiation optimization: All CT scans at this facility use at least one of these dose optimization techniques: automated exposure control; mA and/or kV adjustment per patient size (includes targeted exams where dose is matched to clinical indication); or iterative reconstruction. COMPARISON: No relevant prior studies available. RADIATION DOSE METRICS: Total DLP (mGy-cm): 1150.78 FINDINGS: Brain: Probable encephalomalacia changes of right inferior posterior occipital lobe. Chronic small-vessel ischemic change. Cerebral ventricles: Moderate to severe involutional changes of the ventricles and sulci. 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 Paranasal sinuses: Mild ethmoid and maxillary sinus mucosal thickening. Mastoid air cells: Visualized mastoid air cells are well aerated. Bones: Unremarkable. No acute fracture. Soft tissues: Unremarkable. CT/CT head wo con* [id number] IMPRESSION: No definite acute intracranial abnormality, specifically, no significant fracture or hemorrhage.
--- NOTE | 2025-03-06 19:16 | XRR_ITS ---
PROCEDURE INFORMATION: Exam: XR Chest Exam date and time: 03/06/2025 7:25 PM Age: 84 years old Clinical indication: Chest wall pain; Additional info: Cp/sob TECHNIQUE: Imaging protocol: Radiologic exam of the chest. Views: 1 view. COMPARISON: CR XR chest 1V portable [id number] 12/21/2019 12:20 PM FINDINGS: Lungs: See Pleural spaces finding. Pleural spaces: Poor visualization of the left costophrenic angle can not exclude small effusion or infiltrate, clinical correlation recommended. Heart/Mediastinum: Unki-le-tbloziob cardiomegaly. Vasculature: Aortic atherosclerosis. Tortuosity of the aorta. Bones/joints: Mild degenerative changes of AC joints. XR/XR chest 1V portable [id number] IMPRESSION: Poor visualization of the left costophrenic angle can not exclude small effusion or infiltrate, clinical correlation recommended. [id number] cardiomegaly.
--- NOTE | 2025-03-06 19:21 | W.ED.WOUNDLC ---
HPI - Wound/Laceration General: Chief Complaint: Wound/Laceration Stated Complaint: FALL/INFECTED LEG Time Seen by Provider: 03/06/25 18:59 Source: patient and EMS Mode of arrival: EMS Limitations: physical limitation History of Present Illness: Patient is an 84-year-old male with past medical history of pulmonary hypertension, congestive heart failure, atrial fibrillation, and coronary artery disease who presents to the emergency department by EMS. Reportedly EMS was called due to a fall, when they arrived he was found down on the floor. Patient reported EMS that he was standing and his good leg when out on him. This is in reference to a right leg with a wound on it for the past couple of weeks, per patient, that has slowly gotten more more painful and has started oozing. It is wrapped in a very soaked through Godfrey bandage. He is also reporting some chest pain shortness of breath, and states that he overall has been feeling ill. He lives at home by himself. He is afebrile at this time, difficult to obtain O2 saturation secondary to skin mottling. Blood pressure normal. Overall difficult to obtain accurate history or review of systems from patient. Associated symptoms: Reports fever(s) and nausea; Denies chills or vomiting Related Data Previous Rx's ?Medication ?Instructions ?Recorded simvastatin 40 mg tablet See Rx Instructions .Route 05/04/23 Held on 04/18/24. .COMPLEX #90 tabs Instructions: Home Medication placed on hold at Doctor's office atenolol 100 mg tablet See Rx Instructions .Route 07/10/24 .COMPLEX #90 tabs furosemide 40 mg tablet 40 mg PO DAILY PRN edema #90 tabs 07/10/24 nitroglycerin 0.4 mg sublingual See Rx Instructions .Route 07/10/24 tablet .COMPLEX #25 tabs warfarin 3 mg tablet See Rx Instructions .Route 07/10/24 .COMPLEX #90 tabs cyclobenzaprine 10 mg tablet 10 mg PO TID PRN muscle spasm #30 07/18/24 tabs losartan 25 mg tablet See Rx Instructions .Route 11/11/24 .COMPLEX #90 tabs amlodipine 5 mg tablet See Rx Instructions .Route 12/19/24 .COMPLEX #90 tabs Allergies Allergy/AdvReac Type Severity Reaction Status Date / Time No Known Allergies Allergy Verified 12/04/24 12:51 Review of Systems General: Reports: 10 or more systems reviewed and unremarkable except in HPI and below Const: Reports: fever(s); Denies: chills or fatigue Eyes: Denies: change in vision ENMT: Denies: throat pain, ear or mastoid pain or nasal discharge Card: Reports: chest pain; Denies: palpitations, swelling of feet/ankles or lightheadedness Resp: Reports: dyspnea; Denies: productive cough or wheezing GI: Reports: nausea; Denies: abdominal pain, vomiting, diarrhea or constipation : Denies: flank pain, difficulty urinating, dysuria or urinary frequency Musc: Reports: extremity pain (Right lower); Denies: neck pain, back pain or joint pain Skin/Breast: Reports: skin pain, skin tenderness and skin swelling; Denies: rash Neuro: Denies: headache(s), numbness in extremities or weakness in extremities PFSH ED PFSH: Medical History Thrombocytopenia Warfarin anticoagulation PHT (pulmonary hypertension) Mild aortic stenosis CHF (congestive heart failure) Atrial fibrillation HTN (hypertension) CAD (coronary artery disease) Surgical History S/P cataract extraction S/P tonsillectomy S/P coronary artery stent placement Family History Other Cancer Hypertension Social History Smoking and tobacco/nicotine status: never used tobacco/nicotine Physical Exam Const: EXAM LIMITATIONS: physical limitations GENERAL APPEARANCE: cooperative, disheveled and ill appearing NUTRITIONAL APPEARANCE: overweight ORIENTATION/CONSCIOUSNESS: Yes awake, Yes oriented to person, Yes oriented to place and Yes oriented to time HENMT: COMMON NORMALS: normocephalic and atraumatic HEAD & SCALP: normocephalic and atraumatic FACE & SINUS: normal facial exam OTHER: Dry oral mucosa, cracked lips Eye: COMMON NORMALS: Equal, round and reactive pupils present and EOMs intact bilaterally PUPIL: Yes Equal, round and reactive pupils present OTHER: Bilateral diffuse conjunctival injection Neck/C-Spine: COMMON NORMALS: full ROM and no meningeal signs Chest: COMMONS NORMALS: normal inspection of the chest Resp: COMMON NORMALS: normal respiratory effort, No retractions, No use of accessory muscles and clear to auscultation bilaterally EFFORT & INSPECTION: Yes able to speak in complete sentences AUSCULTATION: clear to auscultation bilaterally Cardio: COMMON NORMALS: regular rate RATE: regular rate RHYTHM: abnormal rhythm irregularly irregular GI: COMMON NORMALS: non-tender INSPECTION: Yes central obesity Extremity: NARRATIVE EXTREMITY EXAM: Bilateral lower knees have chronic appearing wounds, right worse than left. To the right there is active weeping and oozing along the entirety of the right ryder, there is a soaked through Godfrey bandage present on patient's arrival. Diffuse tenderness to palpation on the right. Pulses palpable bilaterally. Neuro: COMMON NORMALS: moves all extremities, no focal motor deficits and no sensory deficits noted SENSORIUM/ORIENTATION: Yes oriented to person, Yes oriented to place and Yes oriented to time MENINGEAL SIGNS: Yes no meningeal signs SPEECH: speech normal MOTOR EXAM: 5/5 motor strength present throughout Course Vital Signs: Vital signs: Vital Signs Temperature 98 F 03/06/25 18:58 Respiratory Rate 18 03/06/25 18:58 Blood Pressure 122/79 03/06/25 18:58 MDM - Wound/Laceration Medical Decision Making Patient presented from EMS as he was found down, unknown downtime. Patient unreliable historian, he states he had cut his leg a couple of weeks ago and it has only gotten worse and is no longer ambulatory. Reportedly his leg gave out and this is why he fell. He has obvious cellulitis to the right lower extremity, with active oozing and weeping. There is pitting edema bilaterally, as he has a history of CHF. Clinical signs of fluid overload, he also is ill-appearing with some skin mottling in his extremities. Afebrile however, SpO2 has been above 90% throughout his ED stay and maintain normal blood pressure. A tib-fib x-ray was negative, chest x-ray unremarkable. Head CT normal. With labs there is severe concern for septicemia with elevation of white count, lactic acidosis, procalcitonin of 7. BNP is also acutely elevated from baseline, with positive delta troponin. History of A-fib, EKG showing A-fib. He is started on Vanco and Zosyn, careful fluid resuscitation started with 500 mL over 1 hour. Spoke with hospitalist, Dr. Omer, who consults the patient in the ED and accepts to the ICU. However would like consultation with general surgeon in case this needs a debridement, I spoke with Dr. Schwartz who will consult. CT showing substantial soft tissue stranding in the subcutaneous fat though no obvious air pockets or signs of osteolysis. Briefly discussed and staffed patient with Dr. Aragon. Lab Data 03/06/25 20:38 03/06/25 20:38 Radiology Impressions Tibia/Fibula X-Ray 03/06/25 19:14 IMPRESSION: No acute findings. Head CT 03/06/25 19:15 IMPRESSION: No definite acute intracranial abnormality, specifically, no significant fracture or hemorrhage. Chest X-Ray 03/06/25 19:16 IMPRESSION: Poor visualization of the left costophrenic angle can not exclude small effusion or infiltrate, clinical correlation recommended. [id number] cardiomegaly. Lower Extremity CT 03/06/25 23:04 IMPRESSION: Skin thickening and soft tissue stranding in the subcutaneous fat throughout the entire leg, nonspecific although compatible with stated history of cellulitis. No definite bony erosive changes or large collection amenable to percutaneous drainage. Laboratory Results WBC 18.14 10^3/uL (3.29-11.43) H 03/06/25 20:38 RBC 4.11 10^6/uL (3.85-5.65) 03/06/25 20:38 Hgb 14.00 g/dL (11.27-16.99) 03/06/25 20:38 Hct 42.7 % (37-53) 03/06/25 20:38 MCV 103.9 fl (82-101) H 03/06/25 20:38 MCH 34.1 pg (27-33) H 03/06/25 20:38 MCHC 32.8 g/dL (30-55) 03/06/25 20:38 RDW 15.8 % (12.1-15.1) H 03/06/25 20:38 Plt Count 134 10^3/cmm (157-399) L 03/06/25 20:38 MPV 14.0 fL (7.4-10.4) H 03/06/25 20:38 Neut % (Auto) 83.6 % 03/06/25 20:38 Lymph % (Auto) 6.4 % 03/06/25 20:38 [place] % (Auto) 8.7 % 03/06/25 20:38 Eos % (Auto) 0.0 % 03/06/25 20:38 Baso % (Auto) 0.2 % 03/06/25 20:38 Neut # (Auto) 15.17 10^3/uL (1.8-7.7) H 03/06/25 20:38 Lymph # (Auto) 1.2 10^3/uL (0.8-4.8) 03/06/25 20:38 [place] # (Auto) 1.6 10^3/uL (0.2-0.9) H 03/06/25 20:38 Eos # (Auto) 0.0 10^3/uL (0.0-0.8) 03/06/25 20:38 Baso # (Auto) 0.0 10^3/uL (0.0-0.1) 03/06/25 20:38 Nucleated RBC % (auto) 0 % 03/06/25 20: Nucleated RBCs # 0.0 /100WBC 03/06/25 20:38 PT 38.40 SECONDS (12.1-14.9) H 03/06/25 20:38 INR 3.67 (0.8-1.2) H 03/06/25 20:38 APTT 38.9 SECONDS (23.9-36.7) H 03/06/25 20:38 Sodium 133 mmol/L (136-145) L 03/06/25 20:38 Potassium 4.4 mmol/L (3.5-5.1) 03/06/25 20:38 Chloride 97 mmol/L (98-107) L 03/06/25 20:38 Carbon Dioxide 21 mmol/L (22-29) L 03/06/25 20:38 Anion Gap 19.4 (5-19) H 03/06/25 20:38 BUN 47 mg/dL (8-23) H 03/06/25 20:38 Creatinine 1.3 mg/dL (0.7-1.2) H 03/06/25 20:38 GFR Calculation Not Reportable 03/06/25 20:38 Glucose 87 mg/dL (65-115) 03/06/25 20:38 Calculated Osmolality 288 mOsm/kg (285-295) 03/06/25 20:38 Lactic Acid 2.8 mmol/L (0.5-2.2) H 03/06/25 20:38 Lactic Acid (Sepsis) 2.0 mmol/L (0.5-2.2) 03/06/25 22:55 Calcium 8.6 mg/dL (8.5-10.5) 03/06/25 20:38 Total Bilirubin 2.9 mg/dL (0.15-1.2) H 03/06/25 20:38 AST 103 U/L (0-40) H 03/06/25 20:38 ALT 42 U/L (0-41) H 03/06/25 20:38 Alkaline Phosphatase 100 U/L (40-130) 03/06/25 20: Creatine Kinase 2213 U/L (39-308) H* 03/06/25 20:38 Troponin T Baseline 68 ng/L (0-15) H 03/06/25 20:38 Troponin T 120 Minute 48.05 ng/L (0-15) H 03/06/25 22:28 Delta Troponin T -19.95 ABS# (0-10) L 03/06/25 22:28 NT-Pro-B Natriuret Pep 37384 pg/mL (0-450) H 03/06/25 20:38 Total Protein 5.8 g/dL (6.6-8.7) L 03/06/25 20:38 Albumin 3.3 g/dL (3.5-5.2) L 03/06/25 20:38 Globulin 2.5 g/dL (1.3-4.6) 03/06/25 20:38 Procalcitonin 6.89 ng/mL (0-0.5) H 03/06/25 20:38 Urine Color [place] (Yellow) A 03/06/25 20:35 Urine Appearance Cloudy (CLEAR) A 03/06/25 20: Urine pH 5.0 (5-7) 03/06/25 20:35 Ur Specific [place] 1.022 (1.005-1.030) 03/06/25 20:35 Urine Protein 2+ (Negative) A 03/06/25 20:35 Urine Glucose (UA) Negative (Normal) 03/06/25 20: Urine Ketones Trace (Negative) 03/06/25 20:35 Urine Blood 3+ (Negative) A 03/06/25 20:35 Urine Nitrate Negative (Negative) 03/06/25 20:35 Urine Bilirubin 1+ (Negative) H 03/06/25 20:35 Urine Urobilinogen 1.0 mg/dL (Negative) 03/06/25 20:35 Ur Leukocyte Esterase Trace (Negative) A 03/06/25 20:35 Urine RBC 21-50 /hpf (0-2) H 03/06/25 20:35 Urine WBC 0-5 /hpf (0-5) 03/06/25 20:35 Ur Squamous Epith Cells 0-5 /hpf (0-5) 03/06/25 20:35 Amorphous Sediment Not Reportable 03/06/25 20:35 Urine Bacteria None seen /hpf (NONE) 03/06/25 20:35 Hyaline Casts 23.14 /lpf 03/06/25 20:35 Urine Mucus 2+ /hpf 03/06/25 20:35 All radiology interpretation(s) finalized by discharge Discharge Plan Discharge Patient Disposition: Admitted As Inpatient Admit Provider: Chemo Omer Clinical Impression: Septicemia, Cellulitis of leg, right, Congestive heart failure, Atrial fibrillation Condition: Stable Coding Level of Care Code ED Training And Development Assistant for Susan Negrete
--- NOTE | 2025-03-06 19:23 | ECG_ITS ---
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 Measurements Intervals [place] Rate: 87 P: 0 VT: 0 QRS: 139 QRSD: 144 T: 1 QT: 406 QTc: 490 Interpretive Statements ATRIAL FIBRILLATION WITH ABERRANT CONDUCTION OR VENTRICULAR PREMATURE COMPLEXES RIGHT AXIS DEVIATION [QRS AXIS > 100] INTRAVENTRICULAR CONDUCTION DELAY [130+ ms QRS DURATION] SEPTAL MYOCARDIAL INFARCTION , OF INDETERMINATE AGE [40+ ms Q WAVE IN V1/V2] Compared to ECG 12/21/2019 13:04:55 Ventricular premature complex(es) now present Aberrant conduction of supraventricular beat(s) now present Right-axis deviation now present Intraventricular conduction delay now present Myocardial infarct finding now present Electronically Signed On 03-07-2025 13:49:18 CDT by Dafne Champion M.D. [email or web address]
[2025-03-06 20:56] LABS: Glucose Urine UA Negative (Normal); Nitrate Urine Negative (Negative); Specific Gravity, Urine 1.022 (1.005-1.030)
[2025-03-06 21:01] LABS: Add Urine Microscopic? YES
[2025-03-06 21:13] LABS: INR 3.67 (0.8-1.2); Prothrombin Time 38.40 SECONDS (12.1-14.9)
[2025-03-06 21:14] LABS: Partial Thromboplastin Time 38.9 SECONDS (23.9-36.7)
--- NOTE | 2025-03-06 21:14 | ECG_ITS ---
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 Measurements Intervals [place] Rate: 78 P: 0 NE: 0 QRS: 127 QRSD: 144 T: 0 QT: 421 QTc: 482 Interpretive Statements ATRIAL FIBRILLATION WITH ABERRANT CONDUCTION OR VENTRICULAR PREMATURE COMPLEXES INTRAVENTRICULAR CONDUCTION DELAY [130+ ms QRS DURATION] POSSIBLE RIGHT VENTRICULAR HYPERTROPHY [SOME/ALL OF: PROMINENT R IN V1, LATE TRANSITION, RAD, FATIMAH, SSS] SEPTAL MYOCARDIAL INFARCTION , OF INDETERMINATE AGE [40+ ms Q WAVE IN V1/V2] Compared to ECG 03/06/2025 19:23:17 Right-axis deviation no longer present Myocardial infarct finding still present Electronically Signed On 03-07-2025 14:00:37 CDT by Dafne Champion M.D. [email or web address]
[2025-03-06 21:19] LABS: Troponin(5th) Baseline 68 ng/L (0-15)
[2025-03-06 21:20] LABS: Lactic Sepsis W/Reflex 2.8 mmol/L (0.5-2.2)
[2025-03-06 21:23] LABS: UA Slide Review UA Slide Review Perf
[2025-03-06 21:23] LABS: Hematocrit 42.7 % (37-53); Hemoglobin 14.00 g/dL (11.27-16.99); Mean Corpuscular HGB Conc 32.8 g/dL (30-55); Mean Corpuscular Hemoglobin 34.1 pg (27-33); Mean Corpuscular Volume 103.9 fl (82-101); Nucleated Red Blood Cells % 0 %; Platelet Count 134 10^3/cmm (157-399); Red Blood Count 4.11 10^6/uL (3.85-5.65); White Blood Count 18.14 10^3/uL (3.29-11.43)
[2025-03-06 21:30] LABS: Slide Review Slide Review Perform
[2025-03-06 21:41] LABS: Procalcitonin 6.89 ng/mL (0-0.5)
[2025-03-06 21:54] LABS: Alanine Aminotransferase 42 U/L (0-41); Albumin Level 3.3 g/dL (3.5-5.2); Alkaline Phosphatase 100 U/L (40-130); Anion Gap 19.4 (5-19); Aspartate Amino Transferase 103 U/L (0-40); Blood Urea Nitrogen 47 mg/dL (8-23); Calcium 8.6 mg/dL (8.5-10.5); Carbon Dioxide 21 mmol/L (22-29); Chloride 97 mmol/L (98-107); Creatinine Clr Calc Pharmacy 46.2641; Globulin 2.5 g/dL (1.3-4.6); Glucose 87 mg/dL (65-115); Osmolality Calculated 288 mOsm/kg (285-295); Potassium 4.4 mmol/L (3.5-5.1); Sodium 133 mmol/L (136-145); Total Protein 5.8 g/dL (6.6-8.7)
[2025-03-06] MEDS: piperacillin-tazobactam 3.375 GM in sodium chloride 0.9% (plus) 50 ML IV (22:00)
[2025-03-06 22:01] LABS: NT Pro B Type Natriuretic Pept 27843 pg/mL (0-450)
[2025-03-06 22:43] LABS: Reflex Lactate Order REFLEX LACTIC ORDERD
[2025-03-06 22:52] LABS: Troponin 5 2HR 48.05 ng/L (0-15)
[2025-03-06 22:53] LABS: Troponin 5 2HR Delta -19.95 ABS# (0-10)
--- NOTE | 2025-03-06 23:04 | CTR_ITS ---
PROCEDURE INFORMATION: Exam: CT Right Lower Extremity Without Contrast, Leg Exam date and time: 03/06/2025 11:26 PM Age: 84 years old Clinical indication: Cellulitis; Lower leg; Right; Additional info: Cellulitis, concern for nec fasc TECHNIQUE: Imaging protocol: CT of the right lower extremity without contrast was performed. Exam focused on the lower leg. Radiation optimization: All CT scans at this facility use at least one of these dose optimization techniques: automated exposure control; mA and/or kV adjustment per patient size (includes targeted exams where dose is matched to clinical indication); or iterative reconstruction. COMPARISON: CR (LOW EXM, ) 03/06/2025 7:25 PM RADIATION DOSE METRICS: Total DLP (mGy-cm): 541.56 FINDINGS: Bones/joints: Normal. No acute fracture or dislocation. Soft tissues: Opacification of the runoff vessels, all likely patent though heavy calcification limits effective evaluation. Skin thickening and soft tissue stranding in the subcutaneous fat throughout the entire leg, nonspecific although compatible with stated history of cellulitis. No definite bony erosive changes or large collection amenable to percutaneous drainage. CT/CT lower leg RT w con [id number] IMPRESSION: Skin thickening and soft tissue stranding in the subcutaneous fat throughout the entire leg, nonspecific although compatible with stated history of cellulitis. No definite bony erosive changes or large collection amenable to percutaneous drainage.
[2025-03-06 23:20] LABS: Lactic Acid level (Lactate) 2.0 mmol/L (0.5-2.2)
[2025-03-06] MEDS: iohexol 350 mg/mL 500 mL Btl (per mL) IV (23:31)
[2025-03-07] VITALS (95 sets, daily range): BP systolic 99–128; BP diastolic 48–79; PULSE 63–98; RESP 13–37; TEMP 36.5–36.8; O2SAT 88–100
--- NOTE | 2025-03-07 00:04 | US_ITS ---
WS: [id number] Complete ABDOMINAL ULTRASOUND HISTORY: Pain. COMPARISON: None available. Liver: 14.1 cm in length. Very slight nodularity along the surface of the liver. No mass. Portal Vein: Normal hepatopetal flow with monophasic waveform. Gallbladder: Normally distended gallbladder with no stones or wall thickening. CBD: 0.3 cm Pancreas: Normal size and echogenicity. Right kidney: 10.5 cm x 5.6 x 5.8 cm. Cortex:1.1 cm. Normal size and echogenicity. No hydronephrosis or mass. Left kidney: 10.3 cm x 6.1 cm x 5.7 cm. Cortex: 1.1 cm. Normal size and echogenicity. No hydronephrosis or mass. Spleen: 14.8 cm. Mildly enlarged. Aorta and IVC: Unremarkable abdominal aorta and IVC. There is a small amount of ascites surrounding the liver and spleen. US/US abdomen complete* [id number] Impression: 1. Cirrhotic appearing liver. 2. Mild splenomegaly. 3. Small amount of ascites surrounding the liver and spleen. 4. Negative gallbladder.
--- NOTE | 2025-03-07 00:07 | P.HP_ITS ---
Providers/Chief Complaint 2 Admitting Physician: Chemo Omer MD Primary Care Provider: Juventino Brown MD Chief Complaint: FALL/INFECTED LEG History of Present Illness Jamshid Schaffer is a 84 year old male with a past medical history of atrial fibrillation on Coumadin, history of CAD status post 3 cardiac stents, mild aortic stenosis, history of CHF, history of pulmonary hypertension, who presents to [facility] due to increased right lower extremity pain, tenderness, swelling, drainage. Currently patient is alert to person, to place, not to time he can follow commands, at times easily becomes confused, requires frequent redirection and, suspect encephalopathy secondary to sepsis. 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 EMS was called out to his home due to a fall, he was found down on the floor, he tells me that his glued leg went out on him as he is less ambulatory with his right leg pain Review of Systems 2 Const: Reports: fever(s), chills, fatigue and malaise Card: Denies: chest pain Resp: Denies: dyspnea GI: Denies: abdominal pain Medications/Allergies Home Medications ?Medication ?Instructions ?Recorded ?Confirmed ?Last Taken ?Type simvastatin 40 mg tablet See Rx Instructions .Route 1 12/19/24 Unknown Rx Held on 04/18/24. .COMPLEX #90 tabs Instructions: Home Medication placed on hold at Doctor's office atenolol 100 mg tablet See Rx Instructions .Route 1 09/10/23 12/19/24 Unknown Rx .COMPLEX #90 tabs furosemide 40 mg tablet 40 mg PO DAILY PRN edema #90 tabs 07/10/24 12/19/24 Unknown Rx nitroglycerin 0.4 mg sublingual See Rx Instructions .R oute 07/10/24 12/19/24 Unknown Rx tablet .COMPLEX #25 tabs warfarin 3 mg tablet See Rx Instructions .Route 1 09/10/23 12/19/24 Unknown Rx .COMPLEX #90 tabs cyclobenzaprine 10 mg tablet 10 mg PO TID PRN muscle s pasm #30 07/18/24 12/19/24 Unknown Rx tabs losartan 25 mg tablet See Rx Instructions .Route 0 11/11/24 12/19/24 Unknown Rx .COMPLEX #90 tabs amlodipine 5 mg tablet See Rx Instructions .Route 0 12/19/24 12/19/24 Unknown Rx .COMPLEX #90 tabs Allergies Allergy/AdvReac Type Severity Reaction Status Date / Time No Known Allergies Allergy Verified 12/04/24 12:51 PFSH Acute 2 PFSH: Medical History Thrombocytopenia Warfarin anticoagulation PHT (pulmonary hypertension) Mild aortic stenosis CHF (congestive heart failure) Atrial fibrillation HTN (hypertension) CAD (coronary artery disease) Surgical History S/P cataract extraction S/P tonsillectomy S/P coronary artery stent placement Family History Other Cancer Hypertension Social History Smoking and tobacco/nicotine status: never used tobacco/nicotine Vitals/I&O/Wt Last Vital Signs Temp 98 F 03/06/25 18:58 Resp 18 03/06/25 18:58 BP 122/79 03/06/25 18:58 03/06/25 03/06/25 03/07/25 14:59 22:59 06:59 Intake Total 500 / 500 Balance 500 / 500 Weight last 48 hrs Weight 90.718 kg Physical Exam 2 Const: COMMON NORMALS: no acute distress EXAM LIMITATIONS: altered mental status ORIENTATION/CONSCIOUSNESS: Yes awake, Yes oriented to person, Yes oriented to place and Yes confused; not oriented to time Eye: COMMON NORMALS: Equal, round and reactive pupils present and EOMs intact bilaterally Resp: COMMON NORMALS: normal respiratory effort, No retractions, No use of accessory muscles and clear to auscultation bilaterally AUSCULTATION: clear to auscultation bilaterally Cardio: COMMON NORMALS: no JVD, regular rate, regular rhythm, S1 normal heart sound present and S2 normal heart sound present RATE: regular rate RHYTHM: regular rhythm HEART SOUNDS: S1 normal heart sound present and S2 normal heart sound present GI: COMMON NORMALS: Normal to inspection, nondistended, normoactive bowel sounds present, Soft to palpation and non-tender : COMMON NORMALS: Yes no CVA tenderness Extremity: NARRATIVE EXTREMITY EXAM: Right lower extremity, just below the knee joint, significant erythema, swelling, tenderness extending all the way down to the anterior and the posterior compartment of the right lower extremity, down to the level of the ankle with multiple areas that have have open areas of purulent/serous/bloody drainage, it has leaked through and is draining through the shock that he is likely sitting on drainage is yellow in coloration DP PT pulses palpable although diminished bilaterally Neuro: COMMON NORMALS: CN's II-XII intact bilaterally, moves all extremities and no focal motor deficits Quick SOFA Score: Respiratory Rate: 18 Blood Pressure: 122/79 Nina Coma Scale: 14 qSOFA Score: 1 If qSOFA score 2 or greater, continue: Blood Pressure Mean: 93 Bilirubin (mg/dl): 2.9 Platelets (x10?/ml): 134 Creatinine (mg/dl): 1.3 Evaluation: Current stage of sepsis: severe sepsis Sepsis stage criteria used: [facility] Sep-1 and Sepsis-3 Crystalloid fluids: less than 30 mL/kg crystalloid fluids ordered Blood cultures ordered: Yes Possible source: s kin/soft tissue Focused Exam: Vital signs: Temp Resp BP 03/06/25 18:58 98 F 18 122/79 Capillary refill: < 3 Seconds Peripheral pulse strength: 2+ Slightly Diminished Peripheral pulse location: Radial and Pedal Skin exam: pallor noted Date exam was performed: 03/07/25 Time exam was performed: 00:19 2 Sepsis Screen No Definite Risk 03/06/25, 18:58 Respiratory Rate, (12 - 18) 18 breaths/min 03/06/25, 18 :58 Blood Pressure 122/79 mmHg 03/06/25, 18:58 Rousseau Coma Scale Score 14 03/06/25, 18:58 Quick SOFA Score 1 03/06/25, 18:58 SOFA Score: 2 Nina Coma Scale Score 14 03/06/25, 18:58 Blood Pressure Mean 93 mmHg 03/06/25, 18:58 Total Bilirubin, (0.15-1.2) 2.9 mg/dL H 03/06/25, 20 :38 Platelet Count, (157-399) 134 10^3/cmm L 03/06/25, 20:3 8 Creatinine, (0.7-1.2) 1.3 mg/dL H 03/06/25, 20:38 Data 03/06/25 20:38 03/06/25 20:38 Micro: Microbiology 03/06/25 20:38 Blood Culture - Preliminary Blood SPECIMEN COLLECTED 03/06/25 20:46 Blood Culture - Preliminary Blood SPECIMEN COLLECTED A&P Assessment and plan 1. Acute encephalopathy: 2. Sepsis: 3. Cellulitis: 4. UTI (urinary tract infection): 5. Rhabdomyolysis: 6. Hyperbilirubinemia: 7. NSTEMI (non-ST elevated myocardial infarction): Plan: Sepsis secondary to right lower extremity cellulitis, UTI - Sepsis features that given encephalopathy, tachycardia, elevated inflammatory markers, leukocytosis Right lower extremity cellulitis - Concerns for deep tissue infection - CPK 2200, elevated troponins, concern for possible necrotizing fasciitis? - ER provider has reached out to Dr. Schwartz who will review imaging - Keep n.p.o., possible surgical invention tomorrow - Vancomycin - Zosyn - Clindamycin -CT right lower extremity -Check arterial ultrasound - Follow blood cultures Urinary tract infection - Follow urine culture - Antibiotics as above Rhabdomyolysis - Potentially related to fall - Will hold off of fluids given BNP over 27,000 NSTEMI - No chest pain complaints - Serial EKGs, serial troponins, telemetry monitoring - Cardiac echo BNP over 27,000, is on 2 L, - Will hold off on fluid therapy due to concerns for fluid overload - Cardiac echo Hyperbilirubinemia with transaminitis - Normal alk phos - Right upper quadrant ultrasound - Urine toxicology screen, blood alcohol level, ferritin Atrial fibrillation, on Coumadin, INR supratherapeutic at 3.67 we will hold Acute encephalopathy - Likely secondary to sepsis, right lower extremity cellulitis, UTI - Monitor mentation PDMP PDMP Reviewed: Not Reviewed Attestations 2 Medical Necessity Statement*: Patient requires hospitalization for right lower extremity cellulitis, UTI, rhabdomyolysis, sepsis, NSTEMI, hyperbilirubinemia, atrial fibrillation, encephalopathy, inpatient, greater than 2 midnights Diagnoses Acute encephalopathy G93.40 Sepsis A41.9 Cellulitis L03.90 UTI (urinary tract infection) N39.0 Rhabdomyolysis M62.82 Hyperbilirubinemia E80.6 NSTEMI (non-ST elevated myocardial infarction) I21.4
--- NOTE | 2025-03-07 01:16 | USCV_ITS ---
Jamshid Schaffer Age: 84 Gender: M : 1940 Exam Date: 03/07/2025 11:02 Ordering Phys: Chemo Omer MD Technologist: Rony Mitchell Exam Location: [facility] – [place] Indication: nstemi BP: 121 / 79 HR: 71 Rhythm: Sinus Technical Quality: Adequate MEASUREMENTS (Male / Female) Normal Values 2D ECHO LV Diastolic Diameter PLAX 5.3 cm 4.2 - 5.9 / 3.9 - 5.3 cm IVS Diastolic Thickness 1.2 cm 0.6 - 1.0 / 0.6 - 0.9 cm IVS Systolic Thickness 1.4 cm LVPW Diastolic Thickness 1.1 cm 0.6 - 1.0 / 0.6 - 0.9 cm LVPW Systolic Thickness 1.1 cm LVOT Diameter 2.0 cm LV Ejection Fraction 2D Teich 24.8 % LV Ejection Fraction MOD 4C 47.1 % LV Ejection Fraction MOD 2C 52.9 % LV Ejection Fraction 2C AL 53.3 % LA Diameter 5.2 cm RA Systolic Volume 4C AL 116.1 ml RA Systolic Volume 4C MOD 110.0 ml LA Sys Volume AL 98.9 cm cubed LA Sys Volume Index AL 48.1 cm cubed/m squared Aorta at Sinotubular Diameter 2.7 cm IVC Diameter 2.1 cm M-MODE LA Ao Ratio MM 2.4 AV Cusp Separation MM 1.2 cm DOPPLER AV Peak Velocity 155.0 cm/s LVOT Peak Velocity 78.0 cm/s AV Area Cont Eq vti 1.9 cm squared AV Area Cont Eq pk 1.6 cm squared MV Peak Velocity 128.0 cm/s MV Area PHT 6.0 cm squared Mitral E to A Ratio 2.2 TV Peak Velocity 348.7 cm/s TR Peak Velocity 368.0 cm/s TR Peak Gradient 54.2 mmHg TR Mean Velocity 313.0 cm/s TR Mean Gradient 41.1 mmHg TR Velocity Time Integral 117.9 cm PV Peak Velocity 99.3 cm/s RV Ejection Time 0.2 s FINDINGS Left Ventricle Mildly decreased left ventricular systolic function. Left ventricular ejection fraction is estimated at 52 %. Global left ventricular hypokinesis. Flattened septum in diastole consistent with right ventricle volume overload. Grade III/IV diastolic dysfunction (restrictive filling pattern), severely elevated filling pressures. Right Ventricle Moderately increased right ventricular size. Moderate to severe pulmonary hypertension, RVSP 60 mmHg. Right Atrium Severely increased right atrial size. Left Atrium Moderately increased left atrial size. Mitral Valve Moderately thickened mitral valve. No mitral valve stenosis. Severe mitral valve regurgitation. Aortic Valve Mild aortic valve calcification. Mild aortic valve stenosis, mean gradient 4.5 mmHg, EVIE 1.9 cm squared. Trace aortic valve regurgitation. Tricuspid Valve Severe tricuspid valve regurgitation. Pulmonic Valve Trace pulmonary valve regurgitation. Pericardium Normal pericardium without effusion. Aorta Normal ascending aorta dimension. IVC Dilated IVC. CONCLUSIONS Mildly decreased left ventricular systolic function. Left ventricular ejection fraction is estimated at 52 %. Global left ventricular hypokinesis. Flattened septum in diastole consistent with right ventricle volume overload. Grade III/IV diastolic dysfunction (restrictive filling pattern), severely elevated filling pressures. Moderately increased right ventricular size. Moderate to severe pulmonary hypertension, RVSP 60 mmHg. Severely increased right atrial size. Moderately increased left atrial size. Mild aortic valve calcification. Mild aortic valve stenosis, mean gradient 4.5 mmHg, EVIE 1.9 cm squared. Trace aortic valve regurgitation. Severe tricuspid valve regurgitation. Right atrial pressure is around 20 mm of mercury. Sandrita Rockwell MD (Electronically Signed) Final Date: 07 March 2025 17:08 S
[2025-03-07] MEDS: pantoprazole 40 mg SDV IVP (02:01)
--- NOTE | 2025-03-07 02:14 | ECG_ITS ---
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 Measurements Intervals [place] Rate: 78 P: 0 IL: 0 QRS: 122 QRSD: 148 T: -10 QT: 418 QTc: 476 Interpretive Statements ATRIAL FIBRILLATION RIGHT AXIS DEVIATION [QRS AXIS > 100] RIGHT BUNDLE BRANCH BLOCK [120+ ms QRS DURATION, UPRIGHT V1, 40+ ms S IN I/aVL/V4/V5/V6] SEPTAL MYOCARDIAL INFARCTION , OF INDETERMINATE AGE [40+ ms Q WAVE IN V1/V2] MODERATE T-WAVE ABNORMALITY, CONSIDER LATERAL ISCHEMIA [-0.1+ mV T-WAVE IN I/aVL/V5/V6] Compared to ECG 03/06/2025 21:40:26 Right-axis deviation now present.Right bundle-branch block now present T-wave abnormality now present. Possible ischemia now present Ventricular premature complex(es) no longer present Myocardial infarct finding still present Electronically Signed On 03-07-2025 13:57:59 CDT by Dafne Champion M.D. [email or web address]
[2025-03-07] MEDS: glucagon 1 mg/mL KIT 1 mL IM ×2 (02:15→06:14)
--- NOTE | 2025-03-07 03:45 | PC.NURSE ---
Blood sugar Patient's blood sugar 45 at 0207. Recheck for verification revealed blood sugar of 40 at 0208. D10 bolus initiated per protocol. Dr. Omer notified; order received to administer 1 mg glucagon IM once in addition to bolus. Recheck blood glucose at 0247 revealed glucose of 59. D10 bolus initiated per protocol and Dr. Omer notified again. Order received to recheck blood glucose 30 minutes after bolus completed. Blood glucose at 0344 resulted at 103.
[2025-03-07] MEDS: piperacillin-tazobactam 3.375 GM in sodium chloride 0.9% (plus) 50 ML IV ×3 (04:26→19:21)
[2025-03-07 04:46] LABS: Hematocrit 43.9 % (37-53); Hemoglobin 13.90 g/dL (11.27-16.99); Mean Corpuscular HGB Conc 31.7 g/dL (30-55); Mean Corpuscular Hemoglobin 33.7 pg (27-33); Mean Corpuscular Volume 106.3 fl (82-101); Nucleated Red Blood Cells % 0 %; Platelet Count 102 10^3/cmm (157-399); Red Blood Count 4.13 10^6/uL (3.85-5.65); White Blood Count 15.55 10^3/uL (3.29-11.43)
[2025-03-07 04:52] LABS: PCP Screen Urine Negative (Negative)
[2025-03-07 05:00] LABS: INR 3.84 (0.8-1.2); Prothrombin Time 39.80 SECONDS (12.1-14.9)
[2025-03-07 05:07] LABS: Troponin 5 6HR 56.89 ng/L (0-15)
[2025-03-07 05:09] LABS: Alanine Aminotransferase 40 U/L (0-41); Albumin Level 2.9 g/dL (3.5-5.2); Alkaline Phosphatase 90 U/L (40-130); Anion Gap 19.1 (5-19); Aspartate Amino Transferase 77 U/L (0-40); Blood Urea Nitrogen 53 mg/dL (8-23); Calcium 8.3 mg/dL (8.5-10.5); Carbon Dioxide 20 mmol/L (22-29); Chloride 101 mmol/L (98-107); Creatinine Clr Calc Pharmacy 49.0259; Globulin 2.6 g/dL (1.3-4.6); Glucose 118 mg/dL (65-115); Osmolality Calculated 297 mOsm/kg (285-295); Potassium 4.1 mmol/L (3.5-5.1); Sodium 136 mmol/L (136-145); Total Protein 5.5 g/dL (6.6-8.7)
[2025-03-07 05:10] LABS: Lactate (Lactic Acid level) 3.8 mmol/L (0.5-2.2)
[2025-03-07 05:13] LABS: Troponin 5 6HR Delta -11.11 ng/L (0-12)
[2025-03-07 05:21] LABS: Cholesterol 91 mg/dL (0-200); Ferritin 420 ng/mL (30-400); HDL Cholesterol 43 mg/dL (60-100); Thyroid Stimulating Hormone 2.79 uIU/mL (0.27-4.20); Triglycerides 92 mg/dL (0-150)
[2025-03-07 05:22] LABS: Alcohol Level < 10 mg/dL (0-10)
[2025-03-07 05:28] LABS: Estmated Average Glucose 97; Hemoglobin A1C 5.0 % (4.0-6.0)
--- NOTE | 2025-03-07 06:59 | XRR_ITS ---
PROCEDURE INFORMATION: Exam: XR Chest Exam date and time: 03/07/2025 7:27 AM Age: 84 years old Clinical indication: Device placement; Picc; Additional info: Post picc insertion TECHNIQUE: Imaging protocol: Radiologic exam of the chest. Views: 1 view. COMPARISON: CR (CHEST, ) 03/06/2025 7:25 PM FINDINGS: Tubes, catheters and devices: PICC line from the right with the tip projecting over the right atrium. Lungs: Alveolar airspace consolidation within the left lower lobe. Left pleural effusion. Pleural spaces: See Lungs finding. Heart/Mediastinum: Cardiomegaly . Mild vascular congestion. Bones/joints: Unremarkable. XR/XR chest 1V portable [id number] IMPRESSION: Alveolar airspace consolidation within the left lower lobe. Probable pleural effusion. Consider follow-up two-view chest. Mildly progressive from 03-06-25. Mild vascular congestion
--- NOTE | 2025-03-07 07:00 | PC.NURSE ---
D10 Patient's blood sugar 68 at 0529. D10 bolus administered per protocol. Blood glucose recheck [address] Omer notified; orders received to obtain a picc line, administer 1 mg glucagon IM once, and initiate d10 at 100 ml/hr continuous. Dr. Omer notified of only peripheral access available for d10, verification received to administer d10 continuously through peripheral line until PICC obtained.
--- NOTE | 2025-03-07 07:51 | PICC.NOTE ---
Triple lumen PICC placed to right brachial vein. Referred to vascular access nurse for PICC placement due to D10 infusion. Risks and benefits discussed and informed consent obtained from pt. Right arm assessed with right brachial vein measuring 4.0 mm, straight, and apparent best choice for placement. Using sterile technique and MST, right brachial vein accessed x 1 stick. Mid-arm circumference measured 10 cm from right AC 29 cm. Trimmed cath 41 cm with 0 cm external length noted. CXR shows tip to appear to be at cavoatrial junction. Awaiting radiologist to read. Line secured with stat-lock. Insertion site covered with Biopatch and TSM. Report given to bedside nurse, Azael, RN.
--- NOTE | 2025-03-07 08:38 | P.CONIM_ITS ---
Providers/Reason For Consult 2 Consulting Physician/Specialty*: Dr. Schwartz general surgery Reason for Consult*: Lower extremity cellulitis and chronic wounds Attending Physician: Heidy Mejia MD Primary Care Provider: Juventino Brown MD History of Present Illness History of Present Illness Jamshid Schaffer is a 84 year old male who presents with bilateral lower extremity cellulitis. Patient does have some chronic wounds right lower extremity on the posterior aspect that will be debrided. CT scan unrevealing. Medications/Allergies Home Medications ?Medication ?Instructions ?Recorded ?Confirmed ?Last Taken ?Type simvastatin 40 mg tablet See Rx Instructions .Route 1 12/19/24 Unknown Rx Held on 04/18/24. .COMPLEX #90 tabs Instructions: Home Medication placed on hold at Doctor's office atenolol 100 mg tablet See Rx Instructions .Route 1 09/10/23 12/19/24 Unknown Rx .COMPLEX #90 tabs furosemide 40 mg tablet 40 mg PO DAILY PRN edema #90 tabs 07/10/24 12/19/24 Unknown Rx nitroglycerin 0.4 mg sublingual See Rx Instructions .R oute 07/10/24 12/19/24 Unknown Rx tablet .COMPLEX #25 tabs warfarin 3 mg tablet See Rx Instructions .Route 1 09/10/23 12/19/24 Unknown Rx .COMPLEX #90 tabs cyclobenzaprine 10 mg tablet 10 mg PO TID PRN muscle s pasm #30 07/18/24 12/19/24 Unknown Rx tabs losartan 25 mg tablet See Rx Instructions .Route 0 11/11/24 12/19/24 Unknown Rx .COMPLEX #90 tabs amlodipine 5 mg tablet See Rx Instructions .Route 0 12/19/24 12/19/24 Unknown Rx .COMPLEX #90 tabs Allergies Allergy/AdvReac Type Severity Reaction Status Date / Time No Known Allergies Allergy Verified 12/04/24 12:51 Current Medications Generic Name Dose Route Start Last Admin Trade Name Freq PRN Reason Stop Dose Admin Piperacillin Sod/Tazobactam 50 mls @ 12.5 mls/hr 03/07/25 04:00 03/07/25 04:26 Sod 3.375 gm/ Sodium Chloride IV 12.5 mls/hr Q8H KIRBY Administration Dextrose 250 mls @ 1,000 mls/hr 03/07/25 02:13 03/07/25 03:00 D10w IV Infused PRN PRN Infusion Adult Acute Hypoglycemia Nursing Protocol Protocol Dextrose 1,000 mls @ 100 mls/hr 03/07/25 06:15 03/07/25 06:14 D10w IV 100 mls/hr .Q10H KIRBY Administration Pantoprazole Sodium 40 mg 03/07/25 01:16 03/07/25 02:01 Pantoprazole 40 Mg Sdv IVP 40 mg Q24H KIRBY Administration PFSH Acute 2 PFSH: Medical History (Updated 03/07/25 @ 00:17 by Chemo Omer MD) Thrombocytopenia Warfarin anticoagulation PHT (pulmonary hypertension) Mild aortic stenosis CHF (congestive heart failure) Atrial fibrillation HTN (hypertension) CAD (coronary artery disease) Surgical History S/P cataract extraction S/P tonsillectomy S/P coronary artery stent placement Family History Other Cancer Hypertension Social History Smoking and tobacco/nicotine status: never used tobacco/nicotine Vitals/I&O/Wt Last Vital Signs Temp 98.3 F 03/07/25 07:45 Pulse 65 03/07/25 07:45 Resp 28 H 03/07/25 07:45 BP 104/60 03/07/25 07:45 Pulse Ox 95 03/07/25 07:45 O2 Del Method Room Air 03/07/25 07:45 03/06/25 03/07/25 03/07/25 22:59 06:59 14:59 Intake Total 500 / 500 800 / 1300 Output Total 550 / 550 Balance 500 / 500 250 / 750 Weight last 48 hrs Weight 187 lb 6.287 oz Weight 190 lb 11.198 oz Weight 200 lb Physical Exam 2 Narrative: Chest: Unlabored breathing room air. No lymphadenopathy. Heart: Regular rate and rhythm. Abdomen: Soft, nontender, nondistended. No masses or lymphadenopathy. Bilateral lower extremity cellulitis. Right lower extremity with several small chronic wounds posterior aspect. Urinary Catheter Management: [place]: Cath Placed During This Visit: no Reason for Continuing Indwelling Catheter: Accurate Measurement of Urinary Output in Critically Ill Patients Data 03/07/25 03:38 03/07/25 03:38 Micro: Microbiology 03/06/25 20:38 Blood Culture - Preliminary Blood SPECIMEN COLLECTED 03/06/25 20:46 Blood Culture - Preliminary Blood SPECIMEN COLLECTED A&P Assessment and plan 1. Cellulitis: Plan: 84-year-old male with bilateral lower extremity cellulitis. Discussed risk and benefits and patient agrees to proceed with right lower extremity debridement. PDMP PDMP Reviewed: Not Reviewed Coding Level of Care Code 56912 Diagnoses Cellulitis L03.90
--- NOTE | 2025-03-07 09:23 | PM.MISC ---
Miscellaneous Note Purpose of Documentation: Overnight labs and H&P reviewed. Patient is slightly confused. Asking me to move things such as stable, well outside the room etc. However able to tell me his correct name, age of , he knows that he is in a hospital. He knows that his leg is infected and that is why he needed to come to the hospital today. He has questions about planned debridement and understands that this is to make his leg better. Current blood pressure is currently stable. Continue piperacillin/tazobactam and vancomycin. Can discontinue clindamycin at this time. Patient has had a PICC line placed this morning. Blood cultures are currently awaited.
[2025-03-07] MEDS: tetanus-dipt-pertussis 0.5 mL SDV IM (10:05)
--- NOTE | 2025-03-07 12:02 | P.ANESASSM_ITS ---
Pre-Anesthetic Assessment Height/Weight: Height 5 ft 8 in Weight 187 lb 6.287 oz Temp Pulse Resp BP Pulse Ox O2 Del Method 98.3 F 78 36 H 108/56 95 Room Air 03/07/25 07:45 03/07/25 10:15 03/07/25 10:15 03/07/25 10:15 03/07/25 10:15 03/07/25 10:00 Operation Date: 03/07/25 13:25 Proposed Procedures p Incision And Drainage Incision and Drainage Lower Extremity(Right) - Ji Schwartz MD Anesthetic Plan Other: Patient currently with sepsis with NSTEMI. Not requiring any vasopressor support currently Prior echo showing pulmonary hypertension with PA pressures of 64. Repeat echo ordered Patient currently has acute encephalopathy ANO x 2 Rhabdomyolysis, CPK 2200. CT not concerning for necrotizing fasciitis A-fib, on Coumadin. INR 3.8 Medications/Allergies Home Medications ?Medication ?Instructions ?Recorded ?Confirmed ?Last Taken ?Type simvastatin 40 mg tablet See Rx Instructions .Route 1 12/19/24 Unknown Rx Held on 04/18/24. .COMPLEX #90 tabs Instructions: Home Medication placed on hold at Doctor's office atenolol 100 mg tablet See Rx Instructions .Route 1 09/10/23 12/19/24 Unknown Rx .COMPLEX #90 tabs furosemide 40 mg tablet 40 mg PO DAILY PRN edema #90 tabs 07/10/24 12/19/24 Unknown Rx nitroglycerin 0.4 mg sublingual See Rx Instructions .R oute 07/10/24 12/19/24 Unknown Rx tablet .COMPLEX #25 tabs warfarin 3 mg tablet See Rx Instructions .Route 1 09/10/23 12/19/24 Unknown Rx .COMPLEX #90 tabs cyclobenzaprine 10 mg tablet 10 mg PO TID PRN muscle s pasm #30 07/18/24 12/19/24 Unknown Rx tabs losartan 25 mg tablet See Rx Instructions .Route 0 11/11/24 12/19/24 Unknown Rx .COMPLEX #90 tabs amlodipine 5 mg tablet See Rx Instructions .Route 0 12/19/24 12/19/24 Unknown Rx .COMPLEX #90 tabs Allergies Allergy/AdvReac Type Severity Reaction Status Date / Time No Known Allergies Allergy Verified 12/04/24 12:51 Current Medications Generic Name Dose Route Start Last Admin Trade Name Bebeto PRN Reason Stop Dose Admin Piperacillin Sod/Tazobactam 50 mls @ 12.5 mls/hr 03/07/25 04:00 03/07/25 09:34 Sod 3.375 gm/ Sodium Chloride IV Infused Q8H KIRBY Infusion Dextrose 250 mls @ 1,000 mls/hr 03/07/25 02:13 03/07/25 03:00 D10w IV Infused PRN PRN Infusion Adult Acute Hypoglycemia Nursing Protocol Protocol Dextrose 1,000 mls @ 100 mls/hr 03/07/25 06:15 03/07/25 06:14 D10w IV 100 mls/hr .Q10H KIRBY Administration Pantoprazole Sodium 40 mg 03/07/25 01:16 03/07/25 02:01 Pantoprazole 40 Mg Sdv IVP 40 mg Q24H KIRBY Administration PFSH Anesthesia Medical History (Updated 03/07/25 @ 00:17 by Chemo Omer MD) Thrombocytopenia Warfarin anticoagulation PHT (pulmonary hypertension) Mild aortic stenosis CHF (congestive heart failure) Atrial fibrillation HTN (hypertension) CAD (coronary artery disease) Surgical History S/P cataract extraction S/P tonsillectomy S/P coronary artery stent placement Family History Other Cancer Hypertension Social History Smoking and tobacco/nicotine status: never used tobacco/nicotine Data Anesthesia 03/07/25 03:38 03/07/25 03:38 Short CBC 03/06/25 03/07/25 Range/Units 20:38 03:38 WBC 18.14 H 15.55 H (3.29-11.43) 10^3/uL Hgb 14.00 13.90 (11.27-16.99) g/dL Hct 42.7 43.9 (37-53) % MCV 103.9 H 106.3 H (82-101) fl Plt Count 134 L 102 L (157-399) 10^3/cmm Neut % (Auto) 83.6 87.9 % Neut # (Auto) 15.17 H 13.66 H (1.8-7.7) 10^3/uL BMP 03/06/25 03/07/25 20:38 03:38 Sodium 133 L 136 Potassium 4.4 4.1 Chloride 97 L 101 Carbon Dioxide 21 L 20 L BUN 47 H 53 H Creatinine 1.3 H 1.2 Glucose 87 118 H Calcium 8.6 8.3 L Cardiac Enzymes 03/06/25 03/06/25 03/07/25 Range/Units 20:38 22:28 03:38 Creatine Kinase 2213 H* 1138 H* (39-308) U/L Troponin T Baseline 68 H (0-15) ng/L Troponin T 120 Minute 48.05 H (0-15) ng/L Delta Troponin T -19.95 L (0-10) ABS# Troponin T Hi Sens 6Hr 56.89 H (0-15) ng/L Troponin T Hi Sens 6Hr Delta -11.11 L (0-12) ng/L NT-Pro-B Natriuret Pep 12888 H (0-450) pg/mL Liver Function 03/06/25 03/07/25 Range/Units 20:38 03:38 Total Bilirubin 2.9 H 2.7 H (0.15-1.2) mg/dL AST 103 H 77 H (0-40) U/L ALT 42 H 40 (0-41) U/L Alkaline Phosphatase 100 90 (40-130) U/L Albumin 3.3 L 2.9 L (3.5-5.2) g/dL Urine 03/06/25 Range/Units 20:35 Urine Color [place] A (Yellow) Urine Appearance Cloudy A (CLEAR) Urine pH 5.0 (5-7) Ur Specific [place] 1.022 (1.005-1.030) Urine Protein 2+ A (Negative) Urine Glucose (UA) Negative (Normal) Urine Ketones Trace (Negative) Urine Nitrate Negative (Negative) Urine Bilirubin 1+ H (Negative) Ur Leukocyte Esterase Trace A (Negative) Urine RBC 21-50 H (0-2) /hpf Urine WBC 0-5 (0-5) /hpf Coags 03/06/25 03/07/25 20:38 03:38 PT 38.40 H 39.80 H INR 3.67 H 3.84 H APTT 38.9 H Microbiology 03/06/25 20:38 Blood Culture - Preliminary Blood SPECIMEN COLLECTED 03/06/25 20:46 Blood Culture - Preliminary Blood SPECIMEN COLLECTED Cardiac Studies: 2 Echocardiogram 11/04/21 Echocardiogram Ultrasound 02/13/20
--- NOTE | 2025-03-07 12:21 | PM.MISC ---
Miscellaneous Note Note: Anesthesiologist concerned about NSTEMI. Will cancel debridement until cardiology workup including echo performed. INR is 3.8. Transition to hep gtt if cardiology agrees. Need INR<2 before proceeding with debridement.
--- NOTE | 2025-03-07 15:08 | PC.SOCIAL ---
IMM UPDATED IMM dated and initialed, copy given to patient and copy placed in chart.
--- NOTE | 2025-03-07 16:07 | PHA.VACGOAL ---
Vancomycin Goal - Goal Vancomycin Goal:: 15-20 mg/L Vancomycin Indication:: Other (SEPSIS) - Therapy Current therapy:: Pip/Tazo Day of therpy:: Day []of [] . Actual body weight (kg): 187 lb 6.287 oz - Data Labs: WBC 15.55 10^3/uL (3.29-11.43) H 03/07/25 03:38 RBC 4.13 10^6/uL (3.85-5.65) 03/07/25 03:38 Hgb 13.90 g/dL (11.27-16.99) 03/07/25 03:38 Hct 43.9 % (37-53) 03/07/25 03:38 MCV 106.3 fl (82-101) H 03/07/25 03:38 MCH 33.7 pg (27-33) H 03/07/25 03:38 MCHC 31.7 g/dL (30-55) 03/07/25 03:38 RDW 15.4 % (12.1-15.1) H 03/07/25 03:38 Sodium 136 mmol/L (136-145) 03/07/25 03:38 Potassium 4.1 mmol/L (3.5-5.1) 03/07/25 03:38 Chloride 101 mmol/L (98-107) 03/07/25 03:38 Carbon Dioxide 20 mmol/L (22-29) L 03/07/25 03:38 Anion Gap 19.1 (5-19) H 03/07/25 03:38 BUN 53 mg/dL (8-23) H 03/07/25 03:38 Creatinine 1.2 mg/dL (0.7-1.2) 03/07/25 03:38 GFR Calculation Not Reportable 03/07/25 03:38 Last dialysis session:: N/A Treatment plan:: new consult Regimen:: 1000 MG DOSE GIVEN IN ER X 1 INITIAL MAINTENANCE DOSE OF 1250 MG Q24H PER TELEPHARMACY Follow up:: WILL CONTINUE TO MONITOR AND FOLLOW UP DAILY
[2025-03-07] MEDS: FUROsemide 10 mg/mL SDV 10mL 60 MG IVP (20:56)
--- NOTE | 2025-03-07 21:00 | PC.NURSE ---
Lasix Patient using abdominal muscles to breathe and lungs coarse to auscultation with audible wheezing. Oxygen saturation briefly decreasing to 89% then increasing to low 90s. Dr. Omer notified; orders received to administer 60 mg lasix IVP once, 20 meq KCL IV once, and decrease D10 administration to 50 ml/hr.
[2025-03-07] MEDS: lidocaine 1% 5 ML in potassium chloride premix 100 ML 52.5 ML IV (21:01)
--- NOTE | 2025-03-07 23:57 | USR_ITS ---
PROCEDURE INFORMATION: Exam: US Duplex Bilateral Lower Extremity Arteries Exam date and time: 03/07/2025 12:11 AM Age: 84 years old Clinical indication: Other: Diminished dp and PT pulses TECHNIQUE: Imaging protocol: Real-time ultrasound scan of the arteries of the bilateral lower extremities with 2-D oleary scale, color Doppler flow and spectral waveform analysis. Images documented and saved. COMPARISON: CT lower leg RT w con [id number] 03/06/2025 11:26 PM FINDINGS: Right common femoral artery: No occlusion or significant stenosis. Normal waveform. Right superficial femoral artery: No occlusion or significant stenosis. Normal waveform. Right popliteal artery: No occlusion or significant stenosis. Normal waveform. Right calf/foot arteries: No occlusion or significant stenosis in the visualized arteries. Normal waveforms. Dorsalis pedis artery is patent. Left common femoral artery: No occlusion or significant stenosis. Normal waveform. Left superficial femoral artery: No occlusion or significant stenosis. Normal waveform. Left popliteal artery: No occlusion or significant stenosis. Normal waveform. Left calf/foot arteries: No occlusion or significant stenosis in the visualized arteries. Normal waveforms. Dorsalis pedis artery is patent. Velocities in cm/s (if multiple values listed per vessel, these proceed from proximal to distal): RIGHT: All waveforms multiphasic Profunda: 60 CARPET FLOOR LAYER APPRENTICE: 65 SFA: 78, 75, 44; Popliteal: 60 RUDDY: Not attempted [employer]NS[employer]IP: 60 Peroneal: Not attempted DP: 46 LEFT: All waveforms multiphasic Profunda: 63 CARPET FLOOR LAYER APPRENTICE: 69 SFA: 69, 49, 67 Popliteal: 36 RUDDY: Not attempted [employer]ERC[employer]: 72 Peroneal: Not attempted DP: 27 US/CV arterial duplex [facility] [id number] IMPRESSION: No stenosis or occlusion.
[2025-03-08] VITALS (47 sets, daily range): BP systolic 95–142; BP diastolic 43–82; PULSE 65–104; RESP 16–38; TEMP 36.6–36.8; O2SAT 82–98
[2025-03-08] MEDS: glucagon 1 mg/mL KIT 1 mL IM ×3 (01:10→20:55)
--- NOTE | 2025-03-08 01:13 | PC.NURSE ---
Glucagon Patient's blood sugar 73. Dr. Omer notified; order received to administer 1 mg glucagon IM once. Patient also refused protonix, stating I don't think I need that. I've never had an ulcer before. Education provided on medication; patient verbalized understanding and still refused. All orientation questions answered correctly. Dr. Omer notified.
[2025-03-08] MEDS: piperacillin-tazobactam 3.375 GM in sodium chloride 0.9% (plus) 50 ML IV ×3 (04:59→19:13)
[2025-03-08 05:33] LABS: Hematocrit 36.6 % (37-53); Hemoglobin 12.10 g/dL (11.27-16.99); Mean Corpuscular HGB Conc 33.1 g/dL (30-55); Mean Corpuscular Hemoglobin 34.7 pg (27-33); Mean Corpuscular Volume 104.9 fl (82-101); Nucleated Red Blood Cells % 0 %; Platelet Count 83 10^3/cmm (157-399); Red Blood Count 3.49 10^6/uL (3.85-5.65); White Blood Count 9.42 10^3/uL (3.29-11.43)
[2025-03-08 05:56] LABS: Alanine Aminotransferase 46 U/L (0-41); Albumin Level 2.9 g/dL (3.5-5.2); Alkaline Phosphatase 91 U/L (40-130); Blood Urea Nitrogen 35 mg/dL (8-23); Calcium 7.8 mg/dL (8.5-10.5); Carbon Dioxide 23 mmol/L (22-29); Chloride 98 mmol/L (98-107); Creatinine Clr Calc Pharmacy 72.9556; Globulin 2.5 g/dL (1.3-4.6); Glucose 120 mg/dL (65-115); Osmolality Calculated 283 mOsm/kg (285-295); Sodium 132 mmol/L (136-145); Total Protein 5.4 g/dL (6.6-8.7)
[2025-03-08 05:58] LABS: Anion Gap 14.8 (5-19); Aspartate Amino Transferase 66 U/L (0-40); Potassium 3.8 mmol/L (3.5-5.1)
--- NOTE | 2025-03-08 10:15 | P.PN_ITS ---
Subjective 2 Subjective: Bilateral lower extremity cellulitis Small open wound right posterior calf Vitals/I&O/Wt Last Vital Signs Temp 98.2 F 03/08/25 05:15 Pulse 78 03/08/25 10:00 Resp 38 H 03/08/25 10:00 BP 108/82 03/08/25 10:00 Pulse Ox 82 L 03/08/25 10:00 O2 Del Method Room Air 03/08/25 05:15 03/07/25 03/08/25 03/08/25 22:59 06:59 14:59 Intake Total 1990.667 / 2041.667 155 / 2196.667 150 / 150 Output Total 700 / 700 2300 / 3000 Balance 1291.667 / 1341.667 -2145 / -803.333 150 / 150 Weight last 48 hrs Weight 188 lb 7.924 oz Weight 187 lb 6.287 oz Weight 190 lb 11.198 oz Weight 200 lb Physical Exam 2 Narrative: Chest: Unlabored breathing room air. No lymphadenopathy. Heart: Regular rate and rhythm. Abdomen: Soft, nontender, nondistended. No masses or lymphadenopathy. Right lower extremity posterior calf small open wound Urinary Catheter Management: [place]: Cath Placed During This Visit: no Reason for Continuing Indwelling Catheter: Accurate Measurement of Urinary Output in Critically Ill Patients Data 03/08/25 04:48 03/08/25 04:48 Micro: Microbiology 03/06/25 20:38 Blood Culture - Preliminary Blood NEGATIVE TO DATE 03/06/25 20:46 Blood Culture - Preliminary Blood NEGATIVE TO DATE A&P Assessment and plan 1. Cellulitis of leg, right: Plan: 84-year-old male with cellulitis bilateral lower extremities. Open area right posterior calf. Santyl to open wounds. Continue treating cellulitis with antibiotics. PDMP PDMP Reviewed: Not Reviewed Attestations 2 Medical Necessity Statement*: N/A Coding Level of Care Code 90858 Diagnoses Cellulitis of leg, right L03.115
--- NOTE | 2025-03-08 11:22 | P.PN_ITS ---
Subjective 2 Subjective: Patient was noted to have hypoxia and increased work of breathing. D10 infusion was discontinued as hypoglycemia is now resolved. He received 60 mg of IV Lasix following which he has diuresed nearly 3 L. He is net -700 cc at this point. Medications: Reviewed: Yes Vitals/I&O/Wt Last Vital Signs Temp 98.2 F 03/08/25 05:15 Pulse 78 03/08/25 10:00 Resp 38 H 03/08/25 10:00 BP 108/82 03/08/25 10:00 Pulse Ox 82 L 03/08/25 10:00 O2 Del Method Room Air 03/08/25 05:15 03/07/25 03/08/25 03/08/25 22:59 06:59 14:59 Intake Total 1991.667 / 2041.667 155 / 2196.667 150 / 150 Output Total 700 / 700 2300 / 3000 Balance 1291.667 / 1341.667 -2145 / -803.333 150 / 150 Weight last 48 hrs Weight 85.5 kg Weight 85 kg Weight 86.5 kg Weight 90.718 kg Physical Exam 2 Narrative: General: No acute distress, AO x2 HEENT: PERRLA, pupils bilaterally equal and reactive, pallors not present Chest: Normal vesicular breath sounds, no added sounds, equal good air entry bilaterally CVS: S1-S2 regular, no murmurs, no tachycardia, no gallops, no rubs Abdomen: Soft, nontender, no organomegaly, bowel sounds present Neuro: No focal deficits, no facial deformity, AO x3, power 5/5 in all limbs Urinary Catheter Management: [place]: Cath Placed During This Visit: no Reason for Continuing Indwelling Catheter: Accurate Measurement of Urinary Output in Critically Ill Patients Data 03/08/25 04:48 03/08/25 04:48 Micro: Microbiology 03/06/25 20:38 Blood Culture - Preliminary Blood NEGATIVE TO DATE 03/06/25 20:46 Blood Culture - Preliminary Blood NEGATIVE TO DATE A&P Assessment and plan 1. Acute encephalopathy: 2. Sepsis: 3. Cellulitis: 4. Rhabdomyolysis: 5. Hyperbilirubinemia: 6. Supratherapeutic INR: 7. PHT (pulmonary hypertension): 8. Right heart failure: 9. Atrial fibrillation: 10. Venous insufficiency: 11. Thrombocytopenia: Plan: Sepsis secondary to right lower extremity cellulitis, UTI - Sepsis features that given encephalopathy, tachycardia, elevated inflammatory markers, leukocytosis Right lower extremity cellulitis - Concerns for deep tissue infection - CPK 2200, elevated troponins, concern for possible necrotizing fasciitis? - ER provider has reached out to Dr. Schwartz who will review imaging - Keep n.p.o., possible surgical invention tomorrow - Vancomycin - Zosyn - Clindamycin -CT right lower extremity -Check arterial ultrasound - Follow blood cultures Urinary tract infection - Follow urine culture - Antibiotics as above Rhabdomyolysis - Potentially related to fall - Will hold off of fluids given BNP over 27,000 NSTEMI - No chest pain complaints - Serial EKGs, serial troponins, telemetry monitoring - Cardiac echo BNP over 27,000, is on 2 L, - Will hold off on fluid therapy due to concerns for fluid overload - Cardiac echo Hyperbilirubinemia with transaminitis - Normal alk phos - Right upper quadrant ultrasound - Urine toxicology screen, blood alcohol level, ferritin Atrial fibrillation, on Coumadin, INR supratherapeutic at 3.67 we will hold Acute encephalopathy - Likely secondary to sepsis, right lower extremity cellulitis, UTI - Monitor mentation March 08, 2025 84-year-old male with a past medical history of A-fib, on chronic anticoagulation with warfarin, currently with supratherapeutic INR at 3.84, history of pulmonary hypertension though with underlying cause, presenting to the hospital on March 07, 2025 with increased lower throat extremity pain tenderness swelling and drainage. He is requiring frequent reorientation and is confused, suspected encephalopathy though with unknown baseline. There is no family member available to get extra history. EMS was called when patient was found down at home by a neighbor. He was noted to have lower extremity cellulitis and chronic wounds affecting the right lower extremity on the posterior aspect. He was planned for a debridement however this has been deferred for now given supratherapeutic INR. Lower extremity CT showed changes consistent with cellulitis. No underlying abscess. No underlying osteomyelitis. No subcutaneous gas. Supratherapeutic INR is not being reversed at this time given no active signs of bleeding, bowel debridement would be helpful, it is not urgently indicated. Lower extremity arterial ultrasound without any stenosis or occlusion. Leukocytosis is improving today. Continuing empiric antibiotic coverage with piperacillin/tazobactam and vancomycin. Noted to have deranged LFTs with elevated AST ALT and T. bili. Ultrasound of the abdomen revealing liver cirrhosis and mild splenomegaly likely suggestive of portal hypertension. There is a small amount of ascites involving the liver and the spleen. These findings may be resulted from right heart failure. Echocardiogram now available shows mildly decreased LVEF with estimated EF at 52%. There is global left hypokinesia and flattened septum in diastole consistent with right ventricular volume overload. There is grade 3 diastolic dysfunction and severely elevated filling pressures. There is moderate to severe pulmonary hypertension with RVSP of 60 mmHg. There is severe tricuspid valve regurgitation. Previously known ejection fraction from 2021 was at 55 to 60% so there were no regional wall motion abnormalities noted at that time. Troponin series with mild elevation with baseline at 68, , 2-hour at 48, 6-hour at 56 with negative delta's serially. Type II HI related to CHF exacerbation is favored to be the etiology of elevated troponins. He received 60 mg of IV Lasix yesterday following which he has diuresed about 3 L. Will continue IV diuresis with Lasix 40 mg IV daily. Closely monitor kidney function and urine output with this change. Noted thrombocytopenia at 83,000 today. Suspect this is related to now known liver cirrhosis. Check hepatitis serologies. DVT prophylaxis: Currently on hold in view of supratherapeutic INR of 3.8, thrombocytopenia. Check INR daily. Plan for or debridement when INR is closer to 2.0. Thereafter may likely resume warfarin depending on platelet trend versus switch to heparin. This remains to be decided. Full code Patient does not have any family members to be updated about the plan. PDMP PDMP Reviewed: Not Reviewed Attestations 2 Medical Necessity Statement*: Needs continued admission for IV antibiotics, IV diuresis. Coding Level of Care Code Acute Code for g Fwd Diagnoses Acute encephalopathy G93.40 Sepsis A41.9 Cellulitis L03.90 Rhabdomyolysis M62.82 Hyperbilirubinemia E80.6 Supratherapeutic INR R79.1 PHT (pulmonary hypertension) I27.20 Right heart failure I50.810 Atrial fibrillation I48.91 Venous insufficiency I87.2 Thrombocytopenia D69.6
[2025-03-08] MEDS: FUROsemide 10 mg/mL SDV 4mL 40 MG IVP (11:55)
--- NOTE | 2025-03-08 17:43 | PC.NURSE ---
has been more oriented this am for short time when doctor was here, talked with here and also talked with neighbor to check on his furniture and car, Dr Schwartz here with wound care oders , santyl oint placed and telfa and wrap placed weeping edema areas . as afternoon progressed more confused pulling at lines and gown. linen change done assist up in bed more disgruntled the pm refused to eat evening meal and not wanting staff in room, i just want to go home... large amt of urine out after am gifty
--- NOTE | 2025-03-08 21:30 | PC.NURSE ---
Blood Glucose Patient's blood glucose 58 at 2010. D10 administering at 50 ml/hr. Patient stated he did not want to eat or drink anything. Education provided on possible symptoms of low blood sugar and treatment. Patient amenable to drinking orange juice. Following juice administration, patient's blood glucose 67 at 2031. More orange juice administered. Dr. Omer notified; order received for 1 mg glucagon IM once. Following glucagon administration and second juice, patient's blood sugar [address] Omer notified; orders received to continue to encourage PO intake and monitor blood glucose levels, if blood glucose drops <60 and/or patient becomes symptomatic then administer D10 bolus per hypoglycemia protocol.
[2025-03-09] VITALS (24 sets, daily range): BP systolic 109–135; BP diastolic 50–78; PULSE 58–113; RESP 18–39; TEMP 36.4; O2SAT 90–100
--- NOTE | 2025-03-09 01:48 | XRR_ITS ---
PROCEDURE INFORMATION: Exam: XR Chest Exam date and time: 03/09/2025 1:49 AM Age: 84 years old Clinical indication: Other: Increased oxygen demand; Prior surgery; Surgery date: 3-7 days post-operative; Surgery type: Picc TECHNIQUE: Imaging protocol: Radiologic exam of the chest. Views: 1 view. COMPARISON: CR (CHEST, ) 03/07/2025 7:27 AM FINDINGS: Tubes, catheters and devices: Right upper extremity PICC is stable in position with the tip at the right atrium. Lungs: Stable mild interstitial pulmonary edema with superimposed atelectasis versus pneumonia in the left lingula and left lower lobe. Pleural spaces: Stable small/moderate left pleural effusion. No pneumothorax. Heart/Mediastinum: Stable moderate enlargement of the cardiac silhouette. Vasculature: Stable vascular calcifications in the aorta. Stable tortuosity of the aorta. Bones/joints: Unremarkable for age. XR/XR chest 1V [id number] IMPRESSION: 1. Stable mild interstitial pulmonary edema with superimposed atelectasis versus pneumonia in the left lingula and left lower lobe. Recommend followup chest imaging to insure resolution of these findings. 2. Stable small/moderate left pleural effusion. 3. Right upper extremity PICC is stable in position with the tip at the right atrium. 4. Incidental/nonacute findings are listed in the report.
[2025-03-09] MEDS: FUROsemide 10 mg/mL SDV 4mL 40 MG IVP ×2 (01:58→11:23)
--- NOTE | 2025-03-09 02:00 | PC.NURSE ---
Lasix Patient's respiratory effort noted to be increased with abdominal muscle use, retractions, increased shortness of breath, increasingly loud expiratory wheezes and oxygen saturations in the high 80s. 2 LNC placed on patient and Dr. Omer notified; orders received to obtain chest xray, administer 40 mg lasix IVP once, and change diet to NPO.
[2025-03-09] MEDS: haloperidol inj 5 mg/mL INJ 1 mL 1 MG IM ×2 (02:03→02:45)
--- NOTE | 2025-03-09 02:45 | PC.NURSE ---
Carlos Irene Patient confused, attempting to climb out of bed, pulling at jain catheter, telemetry wires, pulse ox, and not listening to safety directions. When attempting verbal reorientation, patient stated that none of that matters because it doesn't help his federal case. Dr. Omer notified and orders received for 1 mg haldol IM PRN Q6H. Haldol administered per SEP. Approximately 15 minutes later, patient still attempting to climb out of bed, stating he just needs to stand and that he knows we are deliberately keeping him sick. Dr. Omer notified; orders received to obtain a 1:1 sitter and administer another dose of 1 mg IM haldol.
--- NOTE | 2025-03-09 03:10 | PC.NURSE ---
Tarry Stool Patient had large tarry bowel movement. Dr. Omer notified; order received to check fecal occult blood test.
[2025-03-09] MEDS: piperacillin-tazobactam 3.375 GM in sodium chloride 0.9% (plus) 50 ML IV ×3 (04:07→20:28)
--- NOTE | 2025-03-09 04:23 | PC.NURSE ---
Protonix/Wheezing Dr. Omer notified of fecal occult test being positive; order received for 40 mg protonix BID IVP starting now. Patient's respiratory effort noted to still be increased with audible expiratory wheezing despite lasix administration. Patient remaining on 6 LNC, oxygen saturation remaining in the 90s except with exertion. Upon exertion, patient's oxygen saturation intermittently decreases to low 70s. Dr. Omer notified.
[2025-03-09 05:22] LABS: Hematocrit 36.9 % (37-53); Hemoglobin 11.90 g/dL (11.27-16.99); Mean Corpuscular HGB Conc 32.2 g/dL (30-55); Mean Corpuscular Hemoglobin 33.1 pg (27-33); Mean Corpuscular Volume 102.5 fl (82-101); Nucleated Red Blood Cells % 0 %; Platelet Count 79 10^3/cmm (157-399); Red Blood Count 3.60 10^6/uL (3.85-5.65); White Blood Count 7.17 10^3/uL (3.29-11.43)
[2025-03-09] MEDS: pantoprazole 40 mg SDV IVP ×2 (05:32→17:15)
[2025-03-09 05:41] LABS: INR 2.89 (0.8-1.2); Prothrombin Time 31.90 SECONDS (12.1-14.9)
[2025-03-09 05:49] LABS: Alanine Aminotransferase 57 U/L (0-41); Albumin Level 3.3 g/dL (3.5-5.2); Alkaline Phosphatase 104 U/L (40-130); Aspartate Amino Transferase 60 U/L (0-40); Blood Urea Nitrogen 31 mg/dL (8-23); Calcium 7.5 mg/dL (8.5-10.5); Carbon Dioxide 27 mmol/L (22-29); Chloride 100 mmol/L (98-107); Creatinine Clr Calc Pharmacy 63.9852; Globulin 2.0 g/dL (1.3-4.6); Glucose 107 mg/dL (65-115); Osmolality Calculated 293 mOsm/kg (285-295); Sodium 138 mmol/L (136-145); Total Protein 5.3 g/dL (6.6-8.7)
[2025-03-09 05:59] LABS: Anion Gap 14.3 (5-19); Potassium 3.3 mmol/L (3.5-5.1)
[2025-03-09 06:12] LABS: Hepatitis A Antibody IgM Non-Reactive (Nonreactive); Hepatitis B Surface Antigen Non-Reactive (Nonreactive)
[2025-03-09 11:33] LABS: ABG PCO2 39.3 mmHg (35-45); ABG PH Result 7.51 (7.35-7.45); Alveolar-Arterial Oxygen Gradi 5.1 mmHg (5-10); Arterial Blood Gas Hematocrit 37.6 % (42-52); Blood Gas Allen Test Pos; Blood Gas Operator Identificat BROMA; Blood Gas Sample Site Radial, right; Blood Gas Sample Type Arterial; Carboxyhemoglobin 1.6 %THgb (0.4-20.1); Glucose Level-ABG 121.0 mg/dL (70-115); HCO3 ABG 31.0 mmol/L (22-26); Ionized Calcium Level - ABG 1.1 mmol/L (1.1-1.4); Methemoglobin 0.7 % (0.4-1.5); Oxygen Saturation ABG 95.7; PO2 ABG 62.1 mmHg (80.0-100.0); PO2 FiO2 Ratio Arterial Blood 295; Potassium Level - ABG 2.7 mmol/L (3.5-5.0); Sodium Level - ABG 137.0 mmol/L (131-143)
--- NOTE | 2025-03-09 16:44 | P.PN_ITS ---
Subjective 2 Subjective: patient was hypoglycemic overnight down to 40 therefore D10 infusion was resumed again. Reportedly patient was confused and disoriented all night and pulled out his IVs. This morning and afternoon at the time of my exam and multiple visits with him, patient is alert awake oriented x 4. Completely appropriate in conversation. Medications: Reviewed: Yes Vitals/I&O/Wt Last Vital Signs Temp 97.6 F 03/09/25 04:00 Pulse 60 03/09/25 14:00 Resp 29 H 03/09/25 14:00 BP 126/67 03/09/25 14:00 Pulse Ox 100 03/09/25 09:00 O2 Del Method Nasal Cannula 03/09/25 04:00 O2 Flow Rate 6 03/09/25 04:00 03/09/25 03/09/25 03/09/25 06:59 14:59 22:59 Intake Total 1777 / 3690.333 300 / 300 50 / 350 Output Total 3175 / 5775 1450 / 1450 Balance -1398 / -2084.667 -1150 / -1150 50 / -1100 Weight last 48 hrs Weight 82.5 kg Weight 85.5 kg Physical Exam 2 Narrative: General: No acute distress, AO x3 HEENT: PERRLA, pupils bilaterally equal and reactive, pallors not present Chest: Normal vesicular breath sounds, no added sounds, equal good air entry bilaterally CVS: S1-S2 regular, no murmurs, no tachycardia, no gallops, no rubs Abdomen: Soft, nontender, no organomegaly, bowel sounds present EXT : Multiple bruises in various stages of healing all over the body. Most prominent over the right lateral chest wall and left scapula. Urinary Catheter Management: Ames: Cath Placed During This Visit: no Reason for Continuing Indwelling Catheter: Accurate Measurement of Urinary Output in Critically Ill Patients Data 03/09/25 03:54 03/09/25 03:54 Micro: Microbiology 03/06/25 20:37 Wound Culture - Final Leg - Wound Proteus vulgaris Pseudo fluorescens/putida Klebsiella oxytoca 03/09/25 01:30 Occult Blood (FIT) - Final Stool Routine Collection 03/06/25 20:35 Urine Culture - Final Urine,Clean Catch NAME: Jamshid Schaffer LOC: ICU U #: [id number] AGE/SX: 84/M ROOM: [facility]03 R E03/07/[address]: Heidy Mejia MD : [id number] BED: 1 D IS: FAX #: STATUS: ADM IN OC: Spec #: [id number] Berenice: 03/06/25 Status: COMP Req #: [id number] Recd: 03/06/[address]: Gualberto Tavarez Src: Leg SpDesc: Wound Ordered: Wound Procedure Result Verified Site Wound Culture Final 03/09/25-1241 Organism 1 Proteus vulgaris Growth MODERATE Organism 2 Pseudo fluorescens/putida Growth MODERATE Organism 3 Klebsiella oxytoca Growth MODERATE HEAVY MIXED SUPERFICIAL CECILLE ON DAY 3 P vulgaris Ps flu/put Kleb oxyto M.I.C. RX M.I.C. RX M.I.C. RX --------- ------ --------- ------ --------- ------ * Amikacin <=16 S <=16 S <=16 S * Amoxicillin/Clavulanate <=8/4 S <=8/4 S * Ampicillin/Sulbactam <=8/4 S <=8/4 S * Aztreonam >16 R 16 I <=4 S * Cefepime <=8 S <=8 S <=8 S * Ceftriaxone 8 R 8 S <=1 S * Cefuroxime >16 R * Ciprofloxacin <=1 S <=1 S <=1 S * Gentamicin <=2 S <=2 S <=2 S * Imipenem 4 R <=1 S 2 I * Levofloxacin <=2 S <=2 S <=2 S * Tetracycline 8 I * Trimethoprim/Sulfamethoxazole <=2/38 S <=2/38 S <=2/38 S * Piperacillin/Tazobactam <=16 S <=16 S <=16 S A&P Assessment and plan 1. Acute encephalopathy: 2. Sepsis: 3. Cellulitis: 4. Rhabdomyolysis: 5. Hyperbilirubinemia: 6. Supratherapeutic INR: 7. PHT (pulmonary hypertension): 8. Right heart failure: 9. Paroxysmal atrial fibrillation: 10. Venous insufficiency: 11. Thrombocytopenia: Plan: Sepsis secondary to right lower extremity cellulitis, UTI - Sepsis features that given encephalopathy, tachycardia, elevated inflammatory markers, leukocytosis Right lower extremity cellulitis - Concerns for deep tissue infection - CPK 2200, elevated troponins, concern for possible necrotizing fasciitis? - ER provider has reached out to Dr. Schwartz who will review imaging - Keep n.p.o., possible surgical invention tomorrow - Vancomycin - Zosyn - Clindamycin -CT right lower extremity -Check arterial ultrasound - Follow blood cultures Urinary tract infection - Follow urine culture - Antibiotics as above Rhabdomyolysis - Potentially related to fall - Will hold off of fluids given BNP over 27,000 NSTEMI - No chest pain complaints - Serial EKGs, serial troponins, telemetry monitoring - Cardiac echo BNP over 27,000, is on 2 L, - Will hold off on fluid therapy due to concerns for fluid overload - Cardiac echo Hyperbilirubinemia with transaminitis - Normal alk phos - Right upper quadrant ultrasound - Urine toxicology screen, blood alcohol level, ferritin Atrial fibrillation, on Coumadin, INR supratherapeutic at 3.67 we will hold Acute encephalopathy - Likely secondary to sepsis, right lower extremity cellulitis, UTI - Monitor mentation March 08, 2025 84-year-old male with a past medical history of A-fib, on chronic anticoagulation with warfarin, currently with supratherapeutic INR at 3.84, history of pulmonary hypertension though with underlying cause, presenting to the hospital on March 07, 2025 with increased lower throat extremity pain tenderness swelling and drainage. He is requiring frequent reorientation and is confused, suspected encephalopathy though with unknown baseline. There is no family member available to get extra history. EMS was called when patient was found down at home by a neighbor. He was noted to have lower extremity cellulitis and chronic wounds affecting the right lower extremity on the posterior aspect. He was planned for a debridement however this has been deferred for now given supratherapeutic INR. Lower extremity CT showed changes consistent with cellulitis. No underlying abscess. No underlying osteomyelitis. No subcutaneous gas. Supratherapeutic INR is not being reversed at this time given no active signs of bleeding, bowel debridement would be helpful, it is not urgently indicated. Lower extremity arterial ultrasound without any stenosis or occlusion. Leukocytosis is improving today. Continuing empiric antibiotic coverage with piperacillin/tazobactam and vancomycin. Noted to have deranged LFTs with elevated AST ALT and T. bili. Ultrasound of the abdomen revealing liver cirrhosis and mild splenomegaly likely suggestive of portal hypertension. There is a small amount of ascites involving the liver and the spleen. These findings may be resulted from right heart failure. Echocardiogram now available shows mildly decreased LVEF with estimated EF at 52%. There is global left hypokinesia and flattened septum in diastole consistent with right ventricular volume overload. There is grade 3 diastolic dysfunction and severely elevated filling pressures. There is moderate to severe pulmonary hypertension with RVSP of 60 mmHg. There is severe tricuspid valve regurgitation. Previously known ejection fraction from 2021 was at 55 to 60% so there were no regional wall motion abnormalities noted at that time. Troponin series with mild elevation with baseline at 68, , 2-hour at 48, 6-hour at 56 with negative delta's serially. Type II MA related to CHF exacerbation is favored to be the etiology of elevated troponins. He received 60 mg of IV Lasix yesterday following which he has diuresed about 3 L. Will continue IV diuresis with Lasix 40 mg IV daily. Closely monitor kidney function and urine output with this change. Noted thrombocytopenia at 83,000 today. Suspect this is related to now known liver cirrhosis. Check hepatitis serologies. DVT prophylaxis: Currently on hold in view of supratherapeutic INR of 3.8, thrombocytopenia. Check INR daily. Plan for or debridement when INR is closer to 2.0. Thereafter may likely resume warfarin depending on platelet trend versus switch to heparin. This remains to be decided. Full code Patient does not have any family members to be updated about the plan. March 09, 2025 Patient is afebrile, hemodynamically stable. Was hypoglycemic overnight. Check cortisol level with a.m. labs. He was agitated and confused overnight. Reportedly this was when his blood sugar was within normal range and not necessarily associated with a hypoglycemic event. There was concern that patient may have aspirated overnight therefore he was made NPO. However on assessment this morning, patient is not displaying any signs of aspiration. He is able to tolerate both solid and liquid food. Will obtain's formal speech therapy assessment tomorrow when they return on Monday. Chest is clear to auscultation. ABG was obtained on room air which does show mild hypoxia with PaO2 of 62. His O2 saturation is currently at 100% on 2 L/min supplemental oxygen. D10 infusion has been resumed at 75 cc an hour. Patient does have a history of severe pulmonary hypertension for which she is maintained on Lasix. IV Lasix and dextrose infusion are being utilized together in view of his hypoglycemia. He has been given a few doses of glucagon without any significant sustained improvement. With resumed oral intake today expect hypoglycemia to improve. INR today is down to 2.8. Will recheck with a.m. labs. If INR within range, plan for debridement of the right lower extremity. White blood cell count has improved to 7000 today. Platelets are at 79,000 likely a result of liver cirrhosis that has now been detected. Wound culture screening representative of polymicrobial gram-negative trang. Discontinue vancomycin. Continue piperacillin/tazobactam. Patient is more forthcoming with his family information today. Today reports that he has 2 brothers from home he has been estranged for a long time. He would like to think about his advanced directives and requested forms to fill out today. He additionally said that he would like to appoint his brother Jose Roberto Schaffer [phone] who lives in [place] as his medical decision-maker should the patient be unable to make these decisions by himself. I have spoken to Mr. Jose Roberto Schaffer today and updated him about patient's clinical condition and the patient's request for him to be the medical decision maker. Jose Roberto states that he believes patient already has a friend by the name of Mr. Sauceda assigned as his DPOA. Jose Roberto will speak with Sohail and come to decision tomorrow whether he would like to resume this responsibility for his brother. Of note, patient states that the house that he rents is in the process of being sold and he may not have a place to return to. We will work on establishing a safe disposition plan at discharge. Given patient's significant weakness, multiple hematomas in various stages of healing, most likely sustained from recurrent falls, rhabdomyolysis, lower extremity cellulitis, need for antibiotics and debridement, his overall deconditioning, liver cirrhosis and severe pulmonary hypertension as major comorbidities, he may be best served by transitioning to a care home facility. Will obtain therapy assessments PDMP PDMP Reviewed: Not Reviewed Attestations 2 Medical Necessity Statement*: Need for IV antibiotics, plan debridement, monitoring INR, persisting hypoglycemia Coding Level of Care Code Acute Code for Chg Fwd High MDM includes number and complexity of problems actively addressed during encounter, amount and/or complexity of data reviewed/ordered and described risk of complication, morbidity or mortality of management as documented Diagnoses Acute encephalopathy G93.40 Sepsis A41.9 Cellulitis L03.90 Rhabdomyolysis M62.82 Hyperbilirubinemia E80.6 Supratherapeutic INR R79.1 PHT (pulmonary hypertension) I27.20 Right heart failure I50.810 Paroxysmal atrial fibrillation I48.0 Atrial fibrillation type: paroxysmal Venous insufficiency I87.2 Thrombocytopenia D69.6
--- NOTE | 2025-03-09 17:17 | P.PN_ITS ---
Subjective 2 Subjective: No acute events overnight INR 2.8 Vitals/I&O/Wt Last Vital Signs Temp 97.6 F 03/09/25 04:00 Pulse 60 03/09/25 14:00 Resp 29 H 03/09/25 14:00 BP 126/67 03/09/25 14:00 Pulse Ox 100 03/09/25 09:00 O2 Del Method Nasal Cannula 03/09/25 04:00 O2 Flow Rate 6 03/09/25 04:00 03/09/25 03/09/25 03/09/25 06:59 14:59 22:59 Intake Total 1777 / 3690.333 300 / 300 50 / 350 Output Total 3175 / 5775 1450 / 1450 Balance -1398 / -2084.667 -1150 / -1150 50 / -1100 Weight last 48 hrs Weight 181 lb 14.102 oz Weight 188 lb 7.924 oz Physical Exam 2 Narrative: Chest: Unlabored breathing room air. No lymphadenopathy. Heart: Regular rate and rhythm. Abdomen: Soft, nontender, nondistended. No masses or lymphadenopathy. Bilateral lower extremity cellulitis. Right posterior calf small open wound. Urinary Catheter Management: Ames: Cath Placed During This Visit: no Reason for Continuing Indwelling Catheter: Accurate Measurement of Urinary Output in Critically Ill Patients Data 03/09/25 03:54 03/09/25 03:54 Micro: Microbiology 03/06/25 20:37 Wound Culture - Final Leg - Wound Proteus vulgaris Pseudo fluorescens/putida Klebsiella oxytoca 03/09/25 01:30 Occult Blood (FIT) - Final Stool Routine Collection A&P Assessment and plan 1. Cellulitis of leg, right: Plan: 84-year-old male with bilateral lower extremity cellulitis. Continue antibiotics. Continue Santyl to right posterior calf. Rest of care per hospitalist. PDMP PDMP Reviewed: Not Reviewed Attestations 2 Medical Necessity Statement*: N/A Coding Level of Care Code 39427 Diagnoses Cellulitis of leg, right L03.115
[2025-03-10] VITALS (15 sets, daily range): BP systolic 119–156; BP diastolic 59–74; PULSE 72–119; RESP 17–27; TEMP 36.6–36.8; O2SAT 92–94
[2025-03-10] MEDS: piperacillin-tazobactam 3.375 GM in sodium chloride 0.9% (plus) 50 ML IV ×3 (04:49→20:21)
[2025-03-10 05:35] LABS: Hematocrit 34.5 % (37-53); Hemoglobin 11.60 g/dL (11.27-16.99); Mean Corpuscular HGB Conc 33.6 g/dL (30-55); Mean Corpuscular Hemoglobin 34.3 pg (27-33); Mean Corpuscular Volume 102.1 fl (82-101); Nucleated Red Blood Cells % 0 %; Platelet Count 90 10^3/cmm (157-399); Red Blood Count 3.38 10^6/uL (3.85-5.65); White Blood Count 7.63 10^3/uL (3.29-11.43)
[2025-03-10 06:00] LABS: INR 1.99 (0.8-1.2); Prothrombin Time 23.80 SECONDS (12.1-14.9)
[2025-03-10 06:10] LABS: Alanine Aminotransferase 45 U/L (0-41); Albumin Level 3.1 g/dL (3.5-5.2); Alkaline Phosphatase 90 U/L (40-130); Anion Gap 14.8 (5-19); Aspartate Amino Transferase 32 U/L (0-40); Blood Urea Nitrogen 22 mg/dL (8-23); Calcium 7.1 mg/dL (8.5-10.5); Carbon Dioxide 29 mmol/L (22-29); Chloride 99 mmol/L (98-107); Creatinine Clr Calc Pharmacy 71.5855; Globulin 1.8 g/dL (1.3-4.6); Glucose 109 mg/dL (65-115); Osmolality Calculated 294 mOsm/kg (285-295); Sodium 140 mmol/L (136-145); Total Protein 4.9 g/dL (6.6-8.7)
[2025-03-10 06:13] LABS: Potassium 2.8 mmol/L (3.5-5.1)
[2025-03-10] MEDS: potassium chloride premix 40 MEQ/100 ML PREMIX 25 MEQ IV (06:21)
--- NOTE | 2025-03-10 06:27 | PC.NURSE ---
Critical K+ of 2.8 received from lab, notified Dr. Omer. Given order for KCL 40meq IV Once.
[2025-03-10] MEDS: pantoprazole 40 mg SDV IVP ×2 (07:42→17:32)
--- NOTE | 2025-03-10 09:11 | PICC.NOTE ---
Dressing changed to right upper extermity PICC using sterile technique. Line withdrawn 2 cm due to radiologist reading CXR at right atrium for tip placement. This withdrawal should place tip at cavoatrial junction/distal SVC. Extensive bruising at insertion site with old, dried blood noted. Site cleaned with chlorhexidine and Biopatch applied over insertion site. Secured with Sorbaview shield. No new bleeding noted at this time. Pt tolerated well. Report given to bedside nurseMercedes.
[2025-03-10] MEDS: FUROsemide 10 mg/mL SDV 4mL 40 MG IVP (12:02)
--- NOTE | 2025-03-10 12:37 | P.PN_ITS ---
Subjective 2 Subjective: Cont. on IV abx for right LE cellulitis. Vitals/I&O/Wt Last Vital Signs Temp 97.6 F 03/09/25 04:00 Pulse 91 03/10/25 10:00 Resp 25 H 03/10/25 10:00 BP 125/63 03/10/25 08:00 Pulse Ox 100 03/09/25 09:00 O2 Del Method Nasal Cannula 03/09/25 04:00 O2 Flow Rate 6 03/09/25 04:00 03/09/25 03/10/25 03/10/25 22:59 06:59 14:59 Intake Total 650 / 950 1170 / 2120 170 / 170 Output Total 3025 / 4475 975 / 5450 Balance -2375 / -3525 195 / -3330 170 / 170 Weight last 48 hrs Weight 81.477 kg Weight 82.5 kg Physical Exam 2 Const: COMMON NORMALS: no acute distress and patient oriented x3 HENMT: COMMON NORMALS: normocephalic and atraumatic HEAD & SCALP: n ormocephalic and atraumatic Eye: COMMON NORMALS: Equal, round and reactive pupils present and EOMs intact bilaterally PUPIL: Yes Equal, round and reactive pupils present Chest: COMMONS NORMALS: normal inspection of the chest Resp: COMMON NORMALS: normal respiratory effort and clear to auscultation bilaterally AUSCULTATION: clear to auscultation bilaterally Cardio: COMMON NORMALS: regular rate, regular rhythm, No gallops present (Cardio), No murmurs present (Cardio) and No rub (Cardio) RATE: regular rate RHYTHM: regular rhythm GI: COMMON NORMALS: Soft to palpation, non-tender and no masses PALPATION: Yes Soft to palpation Extremity: NARRATIVE EXTREMITY EXAM: Right LE cellulits, DANYEL wrap Neuro: COMMON NORMALS: patient oriented x3, moves all extremities and no focal motor deficits Urinary Catheter Management: Ames: Cath Placed During This Visit: no Reason for Continuing Indwelling Catheter: Accurate Measurement of Urinary Output in Critically Ill Patients Data 03/10/25 04:06 03/10/25 04:06 Micro: Microbiology 03/06/25 20:37 Wound Culture - Final Leg - Wound Proteus vulgaris Pseudo fluorescens/putida Klebsiella oxytoca A&P Assessment and plan 1. Supratherapeutic INR: 2. Rhabdomyolysis: 3. Cellulitis: 4. Sepsis: Plan: 84 year old male presenting with sepsis 2/2 right LE cellulitis. Sepsis secondary to right lower extremity cellulitis, UTI - Sepsis features that given encephalopathy, tachycardia, elevated inflammatory markers, leukocytosis - encephalopathy now resolved. Right lower extremity cellulitis - Concerns for deep tissue infection - surgery consulted, following. - cont. Zosyn -CT right lower extremity with skin thickening, soft tissue stranding, no bony erosive changes. No abscess - arterial ultrasound negative - Follow blood cultures - NGTD Urinary tract infection - Follow urine culture - Antibiotics as above Rhabdomyolysis - Potentially related to fall - CPK 2200 on admission, now decreased to normal range. stop trending NSTEMI - likely type II - No chest pain complaints - mildly elevated troponin which decreased on subsequent draw, not indicative of ACS - Cardiac echo with normal EF, severe TR BNP over 27,000, is on 2 L, - Will hold off on fluid therapy due to concerns for fluid overload - Cardiac echo with normal PAP. Hyperbilirubinemia with transaminitis - Normal alk phos - Right upper quadrant ultrasound - Urine toxicology screen, blood alcohol level, negative - ferritin minimally elevated Atrial fibrillation, on Coumadin - INR initially supratherapeutic at 3.67 - can restart if no plans for surgery. Acute encephalopathy - Likely secondary to sepsis, right lower extremity cellulitis, UTI - Monitor mentation, now improved PPx: restart warfarin if no plans for surgery Diet: dysphagia Disposition - can downgrade out of ICU. PDMP PDMP Reviewed: Not Reviewed Attestations 2 Medical Necessity Statement*: Inpatient anticipate > 2 midnights for sepsis related to cellulitis Time Spent in Patient Care: 16 - 35 minutes (>than 50% of time sp ent in counselling and/or direct pt care on unit) . Coding Level of Care Code Acute Code for Chg Fwd Diagnoses Supratherapeutic INR R79.1 Rhabdomyolysis M62.82 Cellulitis L03.90 Sepsis A41.9
--- NOTE | 2025-03-10 13:56 | P.PN_ITS ---
Subjective 2 Subjective: Bilateral lower extremity cellulitis Right posterior calf open wound Vitals/I&O/Wt Last Vital Signs Temp 97.6 F 03/09/25 04:00 Pulse 80 03/10/25 13:00 Resp 26 H 03/10/25 13:00 BP 125/63 03/10/25 08:00 Pulse Ox 100 03/09/25 09:00 O2 Del Method Nasal Cannula 03/09/25 04:00 O2 Flow Rate 6 03/09/25 04:00 03/09/25 03/10/25 03/10/25 22:59 06:59 14:59 Intake Total 650 / 950 1170 / 2120 170 / 170 Output Total 3025 / 4475 975 / 5450 Balance -2375 / -3525 195 / -3330 170 / 170 Weight last 48 hrs Weight 179 lb 10 oz Weight 181 lb 14.102 oz Physical Exam 2 Narrative: Chest: Unlabored breathing room air. No lymphadenopathy. Heart: Regular rate and rhythm. Abdomen: Soft, nontender, nondistended. No masses or lymphadenopathy. Bilateral lower extremity cellulitis right posterior calf with open wound Urinary Catheter Management: Ames: Cath Placed During This Visit: no Reason for Continuing Indwelling Catheter: Accurate Measurement of Urinary Output in Critically Ill Patients Data 03/10/25 04:06 03/10/25 04:06 Micro: Microbiology 03/06/25 20:37 Wound Culture - Final Leg - Wound Proteus vulgaris Pseudo fluorescens/putida Klebsiella oxytoca A&P Assessment and plan 1. Cellulitis: Plan: 84-year-old male consulted for bilateral lower extremity cellulitis and open wound of right posterior calf. Continue IV antibiotics. Santyl to right posterior calf. PDMP PDMP Reviewed: Not Reviewed Attestations 2 Medical Necessity Statement*: N/A Coding Level of Care Code 09785 Diagnoses Cellulitis L03.90
[2025-03-10 14:42] LABS: Potassium 3.5 mmol/L (3.5-5.1)
--- NOTE | 2025-03-10 15:37 | PC.NURSE ---
This nurse assumed care of pt at this time.
--- NOTE | 2025-03-10 15:43 | PC.NURSE ---
Patient asked about finding his two pair of glasses that his neighbor brought him. This nurse called neighbor and she stated that he threw one pair in the trash because they didn't work and the other pair she brought was the pair he was currently wearing.
--- NOTE | 2025-03-10 15:58 | PC.SOCIAL ---
IMM Update Updated pt on IMM. No questions voiced. Provided pt a copy. Initialed, dated, & timed a copy & placed in chart.
[2025-03-10] MEDS: sennosides-docusate Tablet 1 TAB PO (17:32)
[2025-03-11] VITALS: BP 136/62; PULSE 85; RESP 16; TEMP 36.8
[2025-03-11] MEDS: piperacillin-tazobactam 3.375 GM in sodium chloride 0.9% (plus) 50 ML IV (03:23)
[2025-03-11 04:00] VITALS: BP 126/66; PULSE 86; RESP 16; TEMP 36.7; O2SAT 94
[2025-03-11 04:55] LABS: Hematocrit 35.9 % (37-53); Hemoglobin 11.80 g/dL (11.27-16.99); Mean Corpuscular HGB Conc 32.9 g/dL (30-55); Mean Corpuscular Hemoglobin 33.5 pg (27-33); Mean Corpuscular Volume 102.0 fl (82-101); Nucleated Red Blood Cells % 0 %; Platelet Count 108 10^3/cmm (157-399); Red Blood Count 3.52 10^6/uL (3.85-5.65); White Blood Count 7.39 10^3/uL (3.29-11.43)
[2025-03-11 05:59] LABS: INR 1.72 (0.8-1.2); Prothrombin Time 21.30 SECONDS (12.1-14.9)
[2025-03-11 06:03] LABS: Blood Urea Nitrogen 12 mg/dL (8-23); Calcium 7.3 mg/dL (8.5-10.5); Carbon Dioxide 30 mmol/L (22-29); Chloride 95 mmol/L (98-107); Creatinine Clr Calc Pharmacy 71.0010; Glucose 113 mg/dL (65-115); Magnesium 1.3 mg/dL (1.7-2.3); Osmolality Calculated 277 mOsm/kg (285-295); Sodium 133 mmol/L (136-145)
[2025-03-11 06:05] LABS: Anion Gap 11.2 (5-19); Potassium 3.2 mmol/L (3.5-5.1)
[2025-03-11 07:09] VITALS: BP 138/60; PULSE 89; RESP 21; TEMP 36.6; O2SAT 94
[2025-03-11] MEDS: sennosides-docusate Tablet 1 TAB PO (08:24)
[2025-03-11] MEDS: pantoprazole 40 mg SDV IVP (08:24)
[2025-03-11] MEDS: potassium chloride premix 100 ML 25 MEQ IV (08:39)
[2025-03-11 09:53] LABS: SARS Covid-2 Antigen Negative (Negative)
[2025-03-11 11:24] VITALS: BP 132/62; PULSE 92; RESP 14; TEMP 36.8; O2SAT 95
--- NOTE | 2025-03-11 11:49 | PM.DCS ---
Discharge Providers Date of Admission: 03/07/25 00:00 Date of Discharge: March 11, 2025 Attending Provider at Admission: Chemo Omer MD Attending Provider at Discharge: Juan Miguel Rogers MD Consults: General surgery Primary Care Provider: Juventino Brown MD Diagnoses at Discharge Discharge Diagnosis 1. Cellulitis: Reason for Visit Reason for Visit: FALL/INFECTED LEG Brief History: 84 year old male presenting with sepsis 2/2 right LE cellulitis. Hospital Course Hospital Course Sepsis secondary to right lower extremity cellulitis, UTI (POA) - Sepsis features that given encephalopathy, tachycardia, elevated inflammatory markers - leukocytosis/encephalopathy now resolved. - HR in normal range. Right lower extremity cellulitis - Concerns for deep tissue infection - surgery consulted, following, continue collagenase santyl to R posterior calf with daily dressing changes - cont. Zosyn, switch to oral abx on discharge. -CT right lower extremity with skin thickening, soft tissue stranding, no bony erosive changes. No abscess - arterial ultrasound negative - Follow blood cultures - NGTD Urinary tract infection - Follow urine culture - Antibiotics as above Rhabdomyolysis - Potentially related to fall - CPK 2200 on admission, now decreased to normal range. stop trending NSTEMI type II, no ACS. - No chest pain complaints - mildly elevated troponin which decreased on subsequent draw, not indicative of ACS - Cardiac echo with normal EF, severe TR BNP over 27,000, is on 2 L, - Will hold off on fluid therapy due to concerns for fluid overload - Cardiac echo with normal PAP. Hyperbilirubinemia with transaminitis - Normal alk phos - Right upper quadrant ultrasound shows cirrhotic liver, no acute GB issues. - Urine toxicology screen, blood alcohol level, negative - ferritin minimally elevated Atrial fibrillation, on Coumadin - INR initially supratherapeutic at 3.67 - can restart coumadin on D/C, monitor INRs and adjust as necessary. Acute encephalopathy - Likely secondary to sepsis, right lower extremity cellulitis, UTI - Monitor mentation, now improved Tinea pedis Onchomycosis - treatment with antifungal cream indefinitely will help reduce future cellulitis by up to 50% - can consider stopping if nails involvement is able to be resolved in future - can add antifungal powder to footwear with each wearing. PPx: restart warfarin Diet: dysphagia Disposition - Discharge planning for today. Wound care with daily dressing changes and santyl to right posterior calf. Physical Exam Const: COMMON NORMALS: no acute distress and patient oriented x3 HENMT: COMMON NORMALS: normocephalic and atraumatic HEAD & SCALP: normocephalic and atraumatic Eye: COMMON NORMALS: Equal, round and reactive pupils present and EOMs intact bilaterally PUPIL: Yes Equal, round and reactive pupils present Chest: COMMONS NORMALS: normal inspection of the chest Resp: COMMON NORMALS: normal respiratory effort and clear to auscultation bilaterally AUSCULTATION: clear to auscultation bilaterally Cardio: COMMON NORMALS: regular rate, regular rhythm, No gallops present (Cardio), No murmurs present (Cardio) and No rub (Cardio) RATE: regular rate RHYTHM: regular rhythm GI: COMMON NORMALS: Soft to palpation, non-tender and no masses PALPATION: Yes Soft to palpation Extremity: NARRATIVE EXTREMITY EXAM: Right LE cellulits, DANYEL wrap Neuro: COMMON NORMALS: patient oriented x3, moves all extremities and no focal motor deficits Urinary Catheter Management: [place]: Cath Placed During This Visit: no Reason for Continuing Indwelling Catheter: Accurate Measurement of Urinary Output in Critically Ill Patients Discharge Data Studies Completed and Pending Completed Studies During Hospitalization Category Date Time Status CT head wo con* [id number] Urgent Cat Scan 03/06/25 19:[address] lower leg RT w con [id number] Stat Cat Scan 03/06/25 23:04 Completed CXRP [XR chest 1V portable [id number]] Routine Exams 03/07/25 06:59 Completed XR chest 1V [id number] Urgent Exams 03/09/25 01:48 Completed XR chest 1V portable [id number] Stat Exams 03/06/25 19:16 Completed XR tibia fibula RT 2V [id number] Stat Exams 03/06/25 19:14 [place] [id number] Stat Ultrasound 03/07/25 23:57 Completed CV. echo complete* [id number] Routine Ultrasound 03/07/25 01:16 Completed US abdomen complete* [id number] Stat Ultrasound 03/07/25 00:04 Completed Pending at discharge Category Date Time Status Blood Culture Stat Lab 03/06/25 20:46 Results Radiology Impressions Tibia/Fibula X-Ray 03/06/25 19:14 IMPRESSION: No acute findings. Head CT 03/06/25 19:15 IMPRESSION: No definite acute intracranial abnormality, specifically, no significant fracture or hemorrhage. Lower Extremity CT 03/06/25 23:04 IMPRESSION: Skin thickening and soft tissue stranding in the subcutaneous fat throughout the entire leg, nonspecific although compatible with stated history of cellulitis. No definite bony erosive changes or large collection amenable to percutaneous drainage. Abdomen Ultrasound 03/07/25 00:04 Impression: 1. Cirrhotic appearing liver. 2. Mild splenomegaly. 3. Small amount of ascites surrounding the liver and spleen. 4. Negative gallbladder. Duplex Scan Lower Extremity Artery 03/07/25 23:57 IMPRESSION: No stenosis or occlusion. Chest X-Ray 03/09/25 01:48 IMPRESSION: 1. Stable mild interstitial pulmonary edema with superimposed atelectasis versus pneumonia in the left lingula and left lower lobe. Recommend followup chest imaging to insure resolution of these findings. 2. Stable small/moderate left pleural effusion. 3. Right upper extremity PICC is stable in position with the tip at the right atrium. 4. Incidental/nonacute findings are listed in the report. Laboratory Results WBC 7.39 10^3/uL (3.29-11.43) 03/11/25 04:27 RBC 3.52 10^6/uL (3.85-5.65) L 03/11/25 04:27 Hgb 11.80 g/dL (11.27-16.99) 03/11/25 04:27 Hct 35.9 % (37-53) L 03/11/25 04:27 MCV 102.0 fl (82-101) H 03/11/25 04:27 MCH 33.5 pg (27-33) H 03/11/25 04:27 MCHC 32.9 g/dL (30-55) 03/11/25 04:27 RDW 14.9 % (12.1-15.1) 03/11/25 04:27 Plt Count 108 10^3/cmm (157-399) L 03/11/25 04:27 MPV 12.4 fL (7.4-10.4) H 03/11/25 04:27 Neut % (Auto) 64.9 % 03/11/25 04:27 Lymph % (Auto) 12.9 % 03/11/25 04:27 Cam[place] % (Auto) 17.9 % 03/11/25 04:27 Eos % (Auto) 1.8 % 03/11/25 04:27 Baso % (Auto) 0.3 % 03/11/25 04:27 Neut # (Auto) 4.81 10^3/uL (1.8-7.7) 03/11/25 04:27 Lymph # (Auto) 1.0 10^3/uL (0.8-4.8) 03/11/25 04:27 [place] # (Auto) 1.3 10^3/uL (0.2-0.9) H 03/11/25 04:27 Eos # (Auto) 0.1 10^3/uL (0.0-0.8) 03/11/25 04:27 Baso # (Auto) 0.0 10^3/uL (0.0-0.1) 03/11/25 04:27 Nucleated RBC % (auto) 0 % 03/11/25 04:27 Nucleated RBCs # 0.0 /100WBC 03/11/25 04:27 PT 21.30 SECONDS (12.1-14.9) H 03/11/25 05:34 INR 1.72 (0.8-1.2) H 03/11/25 05:34 APTT 38.9 SECONDS (23.9-36.7) H 03/06/25 20:38 Specimen Type Arterial 03/09/25 11:20 Sample Site Radial, right 03/09/25 11:20 ABG pH 7.51 (7.35-7.45) H 03/09/25 11:20 ABG pCO2 39.3 mmHg (35-45) 03/09/25 11:20 ABG pO2 62.1 mmHg (80.0-100.0) L 03/09/25 11:20 ABG PO2/FiO2 Ratio 295 03/09/25 11:20 ABG HCO3 31.0 mmol/L (22-26) H 03/09/25 11:20 ABG O2 Saturation 95.7 03/09/25 11:20 ABG Base Excess 7.3 mmol/L (-2.0-2.0) H 03/09/25 11:20 [place]enton Test Pos 03/09/25 11:20 A-a O2 Gradient 5.1 mmHg (5-10) 03/09/25 11:20 Hematocrit 37.6 % (42-52) L 03/09/25 11:20 Hgb O2 Saturation 93.5 % (95-100) L 03/09/25 11:20 Carboxyhemoglobin 1.6 %THgb (0.4-20.1) 03/09/25 11:20 Methemoglobin 0.7 % (0.4-1.5) 03/09/25 11:20 Total Hemoglobin 12.3 g/dL (14-18) L 03/09/25 11:20 Sodium 137.0 mmol/L (131-143) 03/09/25 11:20 Potassium 2.7 mmol/L (3.5-5.0) L 03/09/25 11:20 Glucose 121.0 mg/dL (70-115) H 03/09/25 11:20 Ionized Calcium 1.1 mmol/L (1.1-1.4) 03/09/25 11:20 O2 Delivery Device Room air 03/09/25 11:20 FiO2 21.0 % 03/09/25 11:20 Staffing Administrator ID Broma 03/09/25 11:20 Sodium 133 mmol/L (136-145) L 03/11/25 05:34 Potassium 3.2 mmol/L (3.5-5.1) L 03/11/25 05:34 Chloride 95 mmol/L (98-107) L 03/11/25 05:34 Carbon Dioxide 30 mmol/L (22-29) H 03/11/25 05:34 Anion Gap 11.2 (5-19) 03/11/25 05:34 BUN 12 mg/dL (8-23) 03/11/25 05:34 Creatinine 0.6 mg/dL (0.7-1.2) L 03/11/25 05:34 GFR Calculation Not Reportable 03/11/25 05:34 Glucose 113 mg/dL (65-115) 03/11/25 05:34 POC Glucose 126 mg/dL (70-110) H 03/11/25 09:51 Estimat Average Glucose 97 03/07/25 03:38 Hemoglobin A1c 5.0 % (4.0-6.0) 03/07/25 03:38 Calculated Osmolality 277 mOsm/kg (285-295) L 03/11/25 05:34 Lactic Acid 2.8 mmol/L (0.5-2.2) H 03/06/25 20:38 Lactic Acid (Sepsis) 2.0 mmol/L (0.5-2.2) 03/06/25 22:55 Lactate 3.8 mmol/L (0.5-2.2) H 03/07/25 03:38 Calcium 7.3 mg/dL (8.5-10.5) L 03/11/25 05:34 Magnesium 1.3 mg/dL (1.7-2.3) L 03/11/25 05:34 Ferritin 420 ng/mL (30-400) H 03/07/25 03:38 Total Bilirubin 2.3 mg/dL (0.15-1.2) H 03/10/25 04:06 AST 32 U/L (0-40) 03/10/25 04:06 ALT 45 U/L (0-41) H 03/10/25 04:06 Alkaline Phosphatase 90 U/L (40-130) 03/10/25 04:06 Creatine Kinase 178 U/L (39-308) 03/10/25 04:06 Troponin T Baseline 68 ng/L (0-15) H 03/06/25 20:38 Troponin T 120 Minute 48.05 ng/L (0-15) H 03/06/25 22:28 Delta Troponin T -19.95 ABS# (0-10) L 03/06/25 22:28 Troponin T Hi Sens 6Hr 56.89 ng/L (0-15) H 03/07/25 03:38 Troponin T Hi Sens 6Hr Delta -11.11 ng/L (0-12) L 03/07/25 03:38 NT-Pro-B Natriuret Pep 56760 pg/mL (0-450) H 03/06/25 20:38 Total Protein 4.9 g/dL (6.6-8.7) L 03/10/25 04:06 Albumin 3.1 g/dL (3.5-5.2) L 03/10/25 04:06 Globulin 1.8 g/dL (1.3-4.6) 03/10/25 04:06 Triglycerides 92 mg/dL (0-150) 03/07/25 03:38 Cholesterol 91 mg/dL (0-200) 03/07/25 03:38 LDL Cholesterol, Calc 30 mg/dL (50-129) L 03/07/25 03:38 HDL Cholesterol 43 mg/dL (60-100) L 03/07/25 03:38 LDL/HDL Ratio 0.70 RATIO (0.00-3.22) 03/07/25 03:38 Cholesterol/HDL Ratio 2.12 mg/dL (1.0-5.00) 03/07/25 03:38 Procalcitonin 6.89 ng/mL (0-0.5) H 03/06/25 20:38 TSH 2.79 uIU/mL (0.27-4.20) 03/07/25 03:38 Random Cortisol 14.87 ug/dL (2.47-19.5) 03/10/25 04:06 Urine Color [place] (Yellow) A 03/06/25 20:35 Urine Appearance Cloudy (CLEAR) A 03/06/25 20:35 Urine pH 5.0 (5-7) 03/06/25 20:35 Ur Specific [place] 1.022 (1.005-1.030) 03/06/25 20:35 Urine Protein 2+ (Negative) A 03/06/25 20:35 Urine Glucose (UA) Negative (Normal) 03/06/25 20:35 Urine Ketones Trace (Negative) 03/06/25 20:35 Urine Blood 3+ (Negative) A 03/06/25 20:35 Urine Nitrate Negative (Negative) 03/06/25 20:35 Urine Bilirubin 1+ (Negative) H 03/06/25 20:35 Urine Urobilinogen 1.0 mg/dL (Negative) 03/06/25 20:35 Ur Leukocyte Esterase Trace (Negative) A 03/06/25 20:35 Urine RBC 21-50 /hpf (0-2) H 03/06/25 20:35 Urine WBC 0-5 /hpf (0-5) 03/06/25 20:35 Ur Squamous Epith Cells 0-5 /hpf (0-5) 03/06/25 20:35 Amorphous Sediment Not Reportable 03/06/25 20:35 Urine Bacteria None seen /hpf (NONE) 03/06/25 20:35 Hyaline Casts 23.14 /lpf 03/06/25 20:35 Urine Mucus 2+ /hpf 03/06/25 20:35 Urine Opiates Screen Negative ng/mL (Negative) 03/07/25 03:49 Ur Barbiturates Screen Negative ng/mL (Negative) 03/07/25 03:49 Ur Phencyclidine Scrn Negative ng/mL (Negative) 03/07/25 03:49 Ur Amphetamines Screen Negative ng/mL (Negative) 03/07/25 03:49 U Benzodiazepines Scrn Negative ng/mL (Negative) 03/07/25 03:49 Urine Cocaine Screen Negative ng/mL (Negative) 03/07/25 03:49 U Marijuana (THC) Screen Negative ng/mL (Negative) 03/07/25 03:49 Ethyl Alcohol < 10 mg/dL (0-10) 03/07/25 03:38 Hepatitis A IgM Ab Non-reactive (Nonreactive) 03/09/25 03:54 Hep Bs Antigen Non-reactive (Nonreactive) 03/09/25 03:54 Hep Bs Antibody > 1000.0 (11.5-1000) H 03/09/25 03:54 Hep B Core Total Ab Reactive (Nonreactive) H 03/09/25 03:54 Hepatitis C Antibody Non-reactive (Nonreactive) 03/09/25 03:54 SARS-CoV-2 Ag (Rapid) Negative (Negative) 03/11/25 09:14 Vitals Last Vital Signs Temp 98.2 F 03/11/25 11:24 Pulse 92 03/11/25 11:24 Resp 14 03/11/25 11:24 BP 132/62 03/11/25 11:24 Pulse Ox 95 03/11/25 11:24 O2 Del Method Room Air 03/11/25 11:24 O2 Flow Rate 3 03/11/25 08:00 Discharge Plan Discharge Patient Disposition: Xfer LTC Condition: Stable Prescriptions: No Action amlodipine 5 mg tablet See Rx Instructions .ROUTE .COMPLEX Qty: 90 3RF Dose Instruction: TAKE 1 TABLET BY MOUTH ONCE DAILY FOR BLOOD PRESSURE IN THE LUNGS Rx Instructions: TAKE 1 TABLET BY MOUTH ONCE DAILY FOR BLOOD PRESSURE IN THE LUNGS atenolol 100 mg tablet See Rx Instructions .ROUTE .COMPLEX Qty: 90 3RF Dose Instruction: Take 1 tablet by mouth once daily for blood pressure Rx Instructions: Take 1 tablet by mouth once daily for blood pressure nitroglycerin 0.4 mg tablet, sublingual See Rx Instructions .ROUTE .COMPLEX Qty: 25 5RF Dose Instruction: DISSOLVE ONE TABLET UNDER THE TONGUE EVERY 5 MINUTES NEEDED FOR CHEST PAIN. DO NOT EXCEED A TOTAL OF 3 DOSES IN 15 MINUTES Rx Instructions: DISSOLVE ONE TABLET UNDER THE TONGUE EVERY 5 MINUTES NEEDED FOR CHEST PAIN. DO NOT EXCEED A TOTAL OF 3 DOSES IN 15 MINUTES warfarin 3 mg tablet See Rx Instructions .ROUTE .COMPLEX Qty: 90 3RF Dose Instruction: Take 1 tablet by mouth once daily Rx Instructions: Take 1 tablet by mouth once daily losartan 25 mg tablet See Rx Instructions .ROUTE .COMPLEX Qty: 90 3RF Dose Instruction: Take 1 tablet by mouth once daily Rx Instructions: Take 1 tablet by mouth once daily Discharge Order = DC NOW: Discharge Order (Routine); Ordered 03/11/25 Ordered By: Juan Miguel Rogers Referrals: Ji Schwartz MD [Physician, General Surgery] - 03/24/25 8:20 am Juventino Brown MD [Primary Care Provider, Family Practice] Patient Instructions: Acute Wound Care (DC), Post Anesthesia Care Plan of Treatment: Ongoing wound care with santyl to right posterior calf with daily dressing changes. Follow up with wound care as outpatient. Discharge Attestations Time Spent in Discharge Care*: greater than 30 min Specific Discharge Activities: educating patient, educating and/or supporting family/caregiver, discussing with pcp/other providers, discussing with bilingual patient support caseworker/social workers/dc planners, documenting/other paperwork and evaluating patient/reviewing data Quality Metrics Clinical Quality Measures [ No reported AMI, CVA or VTE this stay] Coding Level of Care Code Acute Code for Chg Fwd Diagnoses Cellulitis L03.90
--- NOTE | 2025-03-11 12:54 | PC.NURSE ---
Addendum entered by Mary Morris LPN 03/11/25 13:40: This nurse gave report to Ismael, not Greer. Original Note: This nurse called report to Greer at [facility] at 1250.
--- NOTE | 2025-03-11 14:30 | PC.NURSE ---
D/C pending transportation. [facility] sending transport over.
[2025-03-11 15:00] VITALS: BP 132/62; PULSE 92; O2SAT 95
== END 2025-03-11 15:01 | disposition skilled nursing facility (03) | DRG 871 ==
LOC: ER 03-07 00:01 → ICU 03-07 00:04 → MEDSURG 03-10 15:36
PROVIDERS: Student in an Organized Health Care Education/Training Program; Admitting Provider Family Medicine; Emergency Provider Physician Assistant; PCP Family Medicine; Visit Provider Internal Medicine
DX: A41.9 Sepsis, unspecified organism (principal); G93.41 Metabolic encephalopathy; I21.A1 Myocardial infarction type 2; L03.115 Cellulitis of right lower limb; N39.0 Urinary tract infection, site not specified; M62.82 Rhabdomyolysis; R65.20 Severe sepsis without septic shock; E80.6 Other disorders of bilirubin metabolism; I48.0 Paroxysmal atrial fibrillation; B35.3 Tinea pedis; R13.10 Dysphagia, unspecified; I25.10 Atherosclerotic heart disease of native coronary artery without angina pectoris; I35.0 Nonrheumatic aortic (valve) stenosis; I50.9 Heart failure, unspecified; I11.0 Hypertensive heart disease with heart failure; I27.20 Pulmonary hypertension, unspecified; E16.2 Hypoglycemia, unspecified; R09.02 Hypoxemia; D69.6 Thrombocytopenia, unspecified; Z79.01 Long term (current) use of anticoagulants; Z95.5 Presence of coronary angioplasty implant and graft
CPT/HCPCS: 36415; 36416; 36573; 36592; 36600; 70450; 71045; 73590; 73701; 76700; 80048; 80051; 80053; 80061; 80306; 80307; 81001; 82274; 82330; 82533; 82550; 82728; 82805; 82962; 83036; 83605; 83735; 83880; 84132; 84145; 84443; 84484; 85025; 85610; 85730; 86705; 86706; 86709; 86803; 87040; 87070; 87077; 87086; 87186; 87340; 87426; 90471; 90715; 92507; 92523; 92610; 93005; 93306; 93925; 96365; 96367; 96372; 97161; 97165; 99285; C1751; J1610; J1630; J1938; J2470; J2543; J3373; J3480; J7040; J7050; J7799; J9999

== ENCOUNTER → 2025-03-18 09:26 | Outpatient (BNVA) | payer MEDICARE, SELFPAY | PROVIDERS: PCP Family Medicine; Visit Provider Thoracic Surgery (Cardiothoracic Vascular Surgery) | DX: I96 Gangrene, not elsewhere classified (principal); L97.812 Non-pressure chronic ulcer of other part of right lower leg with fat layer exposed; L03.115 Cellulitis of right lower limb | CPT/HCPCS: 11042; 11045; 87070; 87176; 87205; 99213 ==

== ENCOUNTER → 2025-03-26 14:39 | Outpatient (BNVA) | payer MEDICARE, SELFPAY | PROVIDERS: PCP Family Medicine; Visit Provider Thoracic Surgery (Cardiothoracic Vascular Surgery) | DX: I96 Gangrene, not elsewhere classified (principal); L97.811 Non-pressure chronic ulcer of other part of right lower leg limited to breakdown of skin | CPT/HCPCS: 97597; 97598 ==

== ENCOUNTER → 2025-04-02 12:56 | Outpatient (BNVA) | payer MEDICARE, SELFPAY | PROVIDERS: PCP Family Medicine; Visit Provider Thoracic Surgery (Cardiothoracic Vascular Surgery) | DX: I96 Gangrene, not elsewhere classified (principal); L97.811 Non-pressure chronic ulcer of other part of right lower leg limited to breakdown of skin | CPT/HCPCS: 97597; 97598 ==

== ENCOUNTER → 2025-04-09 13:48 | Outpatient (BNVA) | payer MEDICARE, SELFPAY | PROVIDERS: PCP Family Medicine; Visit Provider Thoracic Surgery (Cardiothoracic Vascular Surgery) | DX: I96 Gangrene, not elsewhere classified (principal); L97.811 Non-pressure chronic ulcer of other part of right lower leg limited to breakdown of skin | CPT/HCPCS: 97597; 97598 ==

== ENCOUNTER → 2025-04-16 13:19 | Outpatient (BNVA) | payer MEDICARE, SELFPAY | PROVIDERS: PCP Family Medicine; Visit Provider Thoracic Surgery (Cardiothoracic Vascular Surgery) | DX: I96 Gangrene, not elsewhere classified (principal); L97.811 Non-pressure chronic ulcer of other part of right lower leg limited to breakdown of skin | CPT/HCPCS: 97597; 97598; A6253 ==

== ENCOUNTER → 2025-04-18 08:47 | Outpatient (BNVA) | payer MEDICARE, SELFPAY | PROVIDERS: PCP Family Medicine; Visit Provider Thoracic Surgery (Cardiothoracic Vascular Surgery) | DX: L97.912 Non-pressure chronic ulcer of unspecified part of right lower leg with fat layer exposed (principal) | CPT/HCPCS: 29581; A6252 ==

== ENCOUNTER → 2025-04-23 13:42 | Outpatient (BNVA) | payer MEDICARE, SELFPAY | PROVIDERS: PCP Family Medicine; Visit Provider Thoracic Surgery (Cardiothoracic Vascular Surgery) | DX: I96 Gangrene, not elsewhere classified (principal); L97.811 Non-pressure chronic ulcer of other part of right lower leg limited to breakdown of skin | CPT/HCPCS: 97597; 97598; A6253 ==

== ENCOUNTER 2025-04-24 11:45 | Emergency (ER) | payer MEDICARE, SELFPAY ==
[2025-04-24 11:50] VITALS: BP 131/57; PULSE 79; RESP 16; TEMP 36.4; O2SAT 94
--- NOTE | 2025-04-24 12:16 | ED_ITS ---
HPI - Skin/Abscess/Foreign Bdy General: Chief complaint: Skin/Abscess/Foreign Body Stated complaint: L leg wound opened up bleeding Time Seen by Provider: 04/24/25 12:06 History of Present Illness: 84-year-old man with chronic venous diana is and chronic wounds who follows with wound care who presents the emergency room with bleeding from the back of his leg. It appears he had a blister there that became denuded and started to bleed. In triage this was dressed and by the time I look at it there is just a small area of red skin that is no longer bleeding. Swelling seems to be at his baseline. He has home health coming tomorrow. He says he does not have any feeling in his legs. Related Data Previous Rx's ?Medication ?Instructions ?Recorded atenolol 100 mg tablet See Rx Instructions .Route 1 09/10/23 .COMPLEX #90 tabs nitroglycerin 0.4 mg sublingual See Rx Instructions .R oute 07/10/24 tablet .COMPLEX #25 tabs warfarin 3 mg tablet See Rx Instructions .Route 1 09/10/23 .COMPLEX #90 tabs losartan 25 mg tablet See Rx Instructions .Route 0 11/11/24 .COMPLEX #90 tabs amlodipine 5 mg tablet See Rx Instructions .Route 0 12/19/24 .COMPLEX #90 tabs amoxicillin 875 mg-potassium 1 tab PO BID #28 tabs 07/24 clavulanate 125 mg tablet collagenase clostridium histo. 250 1 applic topical DA ARABELLA #30 grams 03/11/25 unit/gram topical ointment (Santyl) miconazole nitrate 2 % topical 1 applic topical DAILY #28 grams 03/11/25 cream (Antifungal (miconazole)) miconazole nitrate 2 % topical 1 applic topical DAILY #85 grams 03/11/25 powder (Zeasorb AF) Walker #1 ea 04/07/25 Allergies Allergy/AdvReac Type Severity Reaction Status Date / Time No Known Allergies Allergy Verified 12/04/24 12:51 Review of Systems Narrative: Constitutional symptoms: Negative except as documented in HPI. Skin symptoms: Negative except as documented in HPI. Eye symptoms: Negative except as documented in HPI. ENMT symptoms: Negative except as documented in HPI. Respiratory symptoms: Negative except as documented in HPI. Cardiovascular symptoms: Negative except as documented in HPI. Gastrointestinal symptoms: Negative except as documented in HPI. Genitourinary symptoms: Negative except as documented in HPI. Musculoskeletal symptoms: Negative except as documented in HPI. Neurologic symptoms: Negative except as documented in HPI. Psychiatric symptoms: Negative except as documented in HPI. Endocrine symptoms: Negative except as documented in HPI. PFSH ED PFSH: Medical History (Updated 04/24/25 @ 12:16 by Kanwal Jimenez MD) Thrombocytopenia Warfarin anticoagulation PHT (pulmonary hypertension) Mild aortic stenosis CHF (congestive heart failure) Atrial fibrillation HTN (hypertension) CAD (coronary artery disease) Surgical History S/P cataract extraction S/P tonsillectomy S/P coronary artery stent placement Family History Other Cancer Hypertension Social History Smoking and tobacco/nicotine status: never used tobacco/nicotine Physical Exam Narrative: EXAM NARRATIVE: General: Alert, no acute distress. Skin: Warm, dry. Small area of skin that is denuded with bleeding controlled. Head: Normocephalic, atraumatic. Neck: Supple, trachea midline. Eye: Extraocular movements are intact. Ears, nose, mouth and throat: mucosa moist. Cardiovascular: Regular, Normal peripheral perfusion. Venous stasis/edema of the lower extremities. Compression stocking present on the right. Respiratory: Lungs are clear to auscultation, respirations are non-labored, breath sounds are equal, Symmetrical chest wall expansion. Gastrointestinal: Soft, Nontender, Non distended Musculoskeletal: Normal ROM, no deformity. Neurological: Alert and oriented, No focal neurological deficit observed. Psychiatric: Cooperative, appropriate mood & affect. Course Vital Signs: Vital signs: Vital Signs Temperature 97.6 F 04/24/25 11:50 Pulse Rate 79 04/24/25 11:50 Respiratory Rate 16 04/24/25 11:50 Blood Pressure 131/57 04/24/25 11:50 Pulse Oximetry 94 04/24/25 11:50 Oxygen Delivery Me thod Room Air 04/24/25 11:50 MDM - Skin/Abscess/Foreign Bdy Medicial Decision Making Medical decision making: Differential diagnosis including but not limited to and based on the above HPI, review of systems and physical exam: This appears to just to be a simple blister or superficial skin that became denuded and was bleeding. Dressing being placed and patient has home health to change dressing tomorrow. Assessment and plan: Abrasion ?Nursing placing dressing on wound. - Discharged home - Discussed plan with patient. Answered any questions. - Evaluation and treatment of this problem were appropriate in the emergency setting. No radiology studies performed this visit Discharge Plan Discharge Patient Disposition: Home Clinical Impression: Abrasion Condition: Stable Prescriptions: No Action amlodipine 5 mg tablet See Rx Instructions .ROUTE .COMPLEX Qty: 90 3RF Dose Instruction: TAKE 1 TABLET BY MOUTH ONCE DAILY FOR BLOOD PRESSURE IN THE LUNGS Rx Instructions: TAKE 1 TABLET BY MOUTH ONCE DAILY FOR BLOOD PRESSURE IN THE LUNGS atenolol 100 mg tablet See Rx Instructions .ROUTE .COMPLEX Qty: 90 3RF Dose Instruction: Take 1 tablet by mouth once daily for blood pressure Rx Instructions: Take 1 tablet by mouth once daily for blood pressure nitroglycerin 0.4 mg tablet, sublingual See Rx Instructions .ROUTE .COMPLEX Qty: 25 5RF Dose Instruction: DISSOLVE ONE TABLET UNDER THE TONGUE EVERY 5 MINUTES NEEDED FOR CHEST PAIN. DO NOT EXCEED A TOTAL OF 3 DOSES IN 15 MINUTES Rx Instructions: DISSOLVE ONE TABLET UNDER THE TONGUE EVERY 5 MINUTES NEEDED FOR CHEST PAIN. DO NOT EXCEED A TOTAL OF 3 DOSES IN 15 MINUTES warfarin 3 mg tablet See Rx Instructions .ROUTE .COMPLEX Qty: 90 3RF Dose Instruction: Take 1 tablet by mouth once daily Rx Instructions: Take 1 tablet by mouth once daily losartan 25 mg tablet See Rx Instructions .ROUTE .COMPLEX Qty: 90 3RF Dose Instruction: Take 1 tablet by mouth once daily Rx Instructions: Take 1 tablet by mouth once daily (DME) Walker See Rx Instructions .Route .MEDSUPPLY Qty: 1 0RF Rx Instructions: As directed Santyl 250 unit/gram Ointment 1 applic topical DAILY Qty: 30 2RF Rx Instructions: right posterior calf amoxicillin-pot clavulanate 875-125 mg tablet 1 tab PO BID Qty: 28 0RF miconazole nitrate [Antifungal (miconazole)] 2 % cream 1 applic topical DAILY Qty: 28 2RF Rx Instructions: Apply to bilateral feet and between toes daily miconazole nitrate [Zeasorb AF] 2 % powder 1 applic topical DAILY Qty: 85 2RF Rx Instructions: Apply to footwear prior to each wearing. Discharge Orders: Discharge ED (Routine); Ordered 04/24/25 Ordered By: Kanwal Jimenez Referrals: Juventino Brown MD [Primary Care Provider, Family Practice] Discharge Diet: Usual diet Discharge Activity: Increase activity as tolerated Patient Instructions: Opioid Safety, Pain Management, Patient Portal & Monique Instructions Activity Restrictions/Additional Instructions: Thank you for choosing [facility] for your healthcare needs today. You have been screened and evaluated and felt safe for discharge. Health conditions do change or evolve sometimes and as such it is important that you follow up with your Primary Doctor to be re checked, 3-5 days is a general good time frame for follow up. You are always welcome to return to the ED for re assessment if your symptoms are worsening or you have new concerns Print Language: Urdu Coding Level of Care Code ED Head Of Marketing Analytics for Susan Negrete
[2025-04-24 12:27] VITALS: BP 117/68; PULSE 71; O2SAT 96
--- OUTSIDE RECORDS SUMMARY | 2025-04-24 13:16 | XMS_ITS | Clinical Summary ---
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 04/30 Tobacco abuse 03/01/2009 Acute Inferior Myocardial In [facility], Initial Episode of Care 02/28/2009 CAD (coronary [...] on file Legal Sex Male 9:58 AM 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 Gender Identity Not on file Sexual Orientation Not on file Last Filed Vital Signs Vital Sign Reading Time Taken Comments Blood Pressure 165/77 08/19/2014 8:59 AM 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 Pulse 67 08/19/2014 8:59 AM 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 Temperature - - Respiratory Rate - - Oxygen Saturation - - Inhaled Oxygen Concentration - - Weight 104.3 kg (230 lb) 08/19/2014 8:59 AM 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 Height 172.7 cm (5' 8 ) 08/19/2014 8:59 AM 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 Body Mass Index 34.97 08/19/2014 8:59 AM 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 Plan of Treatment Health Maintenance Due Date Last Done Comments DTAP/TDAP/TD VACCINES (1 - Tdap) 11/03/1959 PNEUMOCOCCAL VACCINE 50+ YEARS (1 of 1 - PCV) 11/02/18 91 ZOSTER VACCINE (1 of 2) 1990 RSV VACCINE (60+ or ) (1 - 1-dose 75+ series) 11/03/2015 INFLUENZA VACCINE (#1) 2025 Medical Devices Implanted Type Area Hoisting Engineer Pile Driving Device Identifier Shelf Expiration Date Model / Serial / Lot Lens Io [id number] 10.0 - [id number] Implanted:Qty: 1 on 04/09/2014 by Jasiel Macdonald MD Eye [employer] 11/07/2018 [id number] / [id number] / Description:TIA Tecnis ZA 90 03 +10.0 D Lens Io Tecnis 1pc 11.5 [id number] - [id number] Implanted:Qty: 1 on 07/09/2014 by Jasiel Macdonald MD Eye Left: Eye [employer] 01/07/2018 [id number] / [id number] / Care Teams Insert Operator Relationship Specialty Start Date End Date Chapincito Laguna DO [address] [place] [address] PCP - General 02/27/09
== END 2025-04-24 12:28 | disposition home or self-care (01) ==
PROVIDERS: Emergency Provider Emergency Medicine; PCP Family Medicine
DX: S80.812A Abrasion, left lower leg, initial encounter (principal); Z79.01 Long term (current) use of anticoagulants; I25.10 Atherosclerotic heart disease of native coronary artery without angina pectoris; I11.0 Hypertensive heart disease with heart failure; I50.9 Heart failure, unspecified; X58.XXXA Exposure to other specified factors, initial encounter
CPT/HCPCS: 99282

== ENCOUNTER 2025-04-29 11:42 | Emergency (ER) | payer MEDICARE, SELFPAY ==
--- OUTSIDE RECORDS SUMMARY | 2025-04-29 11:47 | XMS_ITS | Clinical Summary ---
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 04/30 Tobacco abuse 03/01/2009 Acute Inferior Myocardial In [facility], Initial Episode of Care 02/28/2009 CAD (coronary [...] on file Legal Sex Male 9:58 AM QUALITY CONTROL INSPECTOR Gender Identity Not on file Sexual Orientation Not on file Last Filed Vital Signs Vital Sign Reading Time Taken Comments Blood Pressure 165/77 08/19/2014 8:59 AM QUALITY CONTROL INSPECTOR Pulse 67 08/19/2014 8:59 AM QUALITY CONTROL INSPECTOR Temperature - - Respiratory Rate - - Oxygen Saturation - - Inhaled Oxygen Concentration - - Weight 104.3 kg (230 lb) 08/19/2014 8:59 AM QUALITY CONTROL INSPECTOR Height 172.7 cm (5' 8 ) 08/19/2014 8:59 AM QUALITY CONTROL INSPECTOR Body Mass Index 34.97 08/19/2014 8:59 AM QUALITY CONTROL INSPECTOR Plan of Treatment Health Maintenance Due Date Last Done Comments DTAP/TDAP/TD VACCINES (1 - Tdap) 11/03/1959 PNEUMOCOCCAL VACCINE 50+ YEARS (1 of 1 - PCV) 11/02/18 91 ZOSTER VACCINE (1 of 2) 1990 RSV VACCINE (60+ or ) (1 - 1-dose 75+ series) 11/03/2015 INFLUENZA VACCINE (#1) 2025 Medical Devices Implanted Type Area Doughnut Maker Device Identifier Shelf Expiration Date Model / Serial / Lot Lens Io [id number] 10.0 - [id number] Implanted:Qty: 1 on 04/09/2014 by Jasiel Macdonald MD Eye [employer] 11/07/2018 [id number] / [id number] / Description:TIA Tecnis ZA 90 03 +10.0 D Lens Io Tecnis 1pc 11.5 [id number] - [id number] Implanted:Qty: 1 on 07/09/2014 by Jasiel Macdonald MD Eye Left: Eye [employer] 01/07/2018 [id number] / [id number] / Care Teams Belly Roller Relationship Specialty Start Date End Date Chapincito Laguna DO [address] [place] [address] PCP - General 02/27/09
--- OUTSIDE RECORDS SUMMARY | 2025-04-29 11:47 | XMS_ITS | Clinical Summary ---
Author Organization [facility] Address [address] [place] [address] Phone Care Team Providers Care Heat Engineering Teacher Name Role Phone Chapincito Laguna DO Primary Care Provider [phone] Allergies No known active allergies Medications atenolol (TENORMIN) 100 mg Oral Tab Take 100 mg by mouth daily. Active aspirin (ECOTRIN EC) 325 mg Oral TbEC Take 1 Tab by mouth daily. Do not stop your Aspirin or Plavix unless directed by a Crime Specialist 1 Tab 1 9 Active simvastatin (ZOCOR) [...] Aspirin or Plavix unless directed by a Crime Specialist 30 Tab 11 0 Active bromfenac (PROLENSA) [...] on file Legal Sex Male 7:23 AM RADIATION SAFETY OFFICER Gender Identity Not on file Sexual Orientation Not on file Occupation Industry Job Start Date Job End Date Not on file Not on file Not on file Not on file Not on file Not on file Not on file Not on file Last Filed Vital Signs Vital Sign Reading Time Taken Comments Blood Pressure 165/77 08/19/2014 8:59 AM RADIATION SAFETY OFFICER Pulse 67 08/19/2014 8:59 AM RADIATION SAFETY OFFICER Temperature 36.8 C (98.2 F) 07/09/2014 11:24 AM RADIATION SAFETY OFFICER Respiratory Rate 16 07/09/2014 11:24 AM RADIATION SAFETY OFFICER Oxygen Saturation 97% 07/09/2014 11:24 AM RADIATION SAFETY OFFICER Inhaled Oxygen Concentration - - Weight 104.3 kg (230 lb) 08/19/2014 8:59 AM RADIATION SAFETY OFFICER Height 172.7 cm (5' 8 ) 08/19/2014 8:59 AM RADIATION SAFETY OFFICER Body Mass Index 34.97 08/19/2014 8:59 AM RADIATION SAFETY OFFICER Plan of Treatment Health Maintenance Due Date Last Done Comments DTAP/TDAP/TD VACCINES (1 - Tdap) 11/03/1959 PNEUMOCOCCAL VACCINE 50+ YEARS (1 of 1 - PCV) 11/02/18 91 ZOSTER VACCINE (1 of 2) 1990 RSV VACCINE (60+ or ) (1 - 1-dose 75+ series) 11/03/2015 INFLUENZA VACCINE (#1) 2025 Medical Devices Implanted Type Area Driver/Merchandiser Device Identifier Shelf Expiration Date Model / Serial / Lot Lens Io [id number] 10.0 - [id number] Implanted:Qty: 1 on 04/09/2014 by Jasiel Macdonald MD at [facility] Eye [employer] 11/07/2018 [id number] / [id number] / Description:TIA Tecnis ZA 90 03 +10.0 D Lens Io Tecnis 1pc 11.5 [id number] - [id number] Implanted:Qty: 1 on 07/09/2014 by Jasiel Macdonald MD at [facility] Left: Eye [employer] 01/07/2018 [id number] / [id number] / Insurance MEDICARE PART A AND B Advance Directives For more information, please contact: [phone] * Full Code (Latest Code Status on File) Date Activated Date Inactivated Comments 07/09/2014 9:18 AM 07/09/2014 1:44 PM * Full Code Date Activated Date Inactivated Comments 04/09/2014 8:07 AM 04/09/2014 12:25 PM * Full Code Date Activated Date Inactivated Comments 02/27/2009 8:26 PM 03/03/2009 3:22 PM Care Teams Heat Engineering Teacher Relationship Specialty Start Date End Date Chapincito Laguna DO [address] [place] [id number] PCP - General 02/27/09
[2025-04-29 12:11] VITALS: BP 135/66; PULSE 73; RESP 18; TEMP 36.8; O2SAT 98; BMI 25.8
--- NOTE | 2025-04-29 13:46 | XR_ITS ---
WS: [id number] XR chest 1V portable [id number] REASON FOR EXAM: Shortness of breath FINDINGS: Moderate tortuosity and ectasia of the thoracic aorta with cardiac enlargement. Coronary artery stents. Moderate central pulmonary venous congestion. Opacification of the left lower lobe, presumed atelectasis, obscuring the left hemidiaphragm contour. Left pleural effusion. These findings are relatively unchanged compared to 03/09/2025. Compared to the previous examination there appears to be increased opacity in the right lower hemithorax secondary to new interstitial reticular lung opacities and presumed areas of atelectasis. There is blunting of the right costophrenic angle suggesting right pleural effusion. XR/XR chest 1V portable [id number] IMPRESSION: Abnormal chest with interval change as above. Possible superimposition of acute congestive failure on chronic abnormality. Less likely right lower lung pneumo nitis.
--- NOTE | 2025-04-29 13:51 | W.ED.WOUNDLC ---
HPI - Wound/Laceration General: Chief Complaint: Wound/Laceration Stated Complaint: open wound on R leg Time Seen by Provider: 04/29/25 13:44 History of Present Illness: 84-year-old man with a history of right-sided heart failure, chronic venous stasis with dermatitis, chronic anticoagulation on Coumadin, coronary artery disease, hypertension, atrial fibrillation, pulmonary hypertension and thrombocytopenia who presents to the emergency room with worsening wound on his right leg. He has a wound on his left leg as well. He has extensive venous stasis dermatitis from the knees down. No systemic fever. No confusion. Blood pressure is normal. Home health nurse was concerned that he might get septic. Related Data Home Medications ?Medication ?Instructions ?Recorded ?Confirmed amlodipine 5 mg tablet 5 mg PO DAILY 04/29/25 04/29/25 atenolol 100 mg tablet 100 mg PO DAILY 04/29/25 04/29/25 losartan 25 mg tablet 25 mg PO QPM 04/29/25 04/29/25 warfarin 3 mg tablet 3 mg PO DAILY 04/29/25 04/29/25 Previous Rx's ?Medication ?Instructions ?Recorded nitroglycerin 0.4 mg sublingual See Rx Instructions .Route 07/10/24 tablet .COMPLEX #25 tabs Walker #1 ea 04/07/25 cephalexin 500 mg tablet 500 mg PO TID 10 days #30 tabs 04/29/25 Allergies Allergy/AdvReac Type Severity Reaction Status Date / Time No Known Allergies Allergy Verified 12/04/24 12:51 Review of Systems Narrative: Constitutional symptoms: Negative except as documented in HPI. Skin symptoms: Negative except as documented in HPI. Eye symptoms: Negative except as documented in HPI. ENMT symptoms: Negative except as documented in HPI. Respiratory symptoms: Negative except as documented in HPI. Cardiovascular symptoms: Negative except as documented in HPI. Gastrointestinal symptoms: Negative except as documented in HPI. Genitourinary symptoms: Negative except as documented in HPI. Musculoskeletal symptoms: Negative except as documented in HPI. Neurologic symptoms: Negative except as documented in HPI. Psychiatric symptoms: Negative except as documented in HPI. Endocrine symptoms: Negative except as documented in HPI. [facility] ED PFSH: Medical History (Updated 04/29/25 @ 15:41 by Kanwal Jimenez MD) Thrombocytopenia Warfarin anticoagulation PHT (pulmonary hypertension) Mild aortic stenosis CHF (congestive heart failure) Atrial fibrillation HTN (hypertension) CAD (coronary artery disease) Surgical History S/P cataract extraction S/P tonsillectomy S/P coronary artery stent placement Family History Other Cancer Hypertension Social History Smoking and tobacco/nicotine status: never used tobacco/nicotine Physical Exam Narrative: EXAM NARRATIVE: General: Alert, no acute distress. Skin: Warm, dry. Venous stasis changes to the legs bilaterally. However there is a worsening area on the posterior of the right calf. See picture below. Head: Normocephalic, atraumatic. Neck: Supple, trachea midline. Eye: Extraocular movements are intact. Ears, nose, mouth and throat: mucosa moist. Cardiovascular: Regular, Normal peripheral perfusion. Respiratory: Lungs are clear to auscultation, respirations are non-labored, breath sounds are equal, Symmetrical chest wall expansion. Gastrointestinal: Soft, Nontender, Non distended Musculoskeletal: Normal ROM, no deformity. Neurological: Alert and oriented, No focal neurological deficit observed. Psychiatric: Cooperative, appropriate mood & affect. Course Vital Signs: Vital signs: Vital Signs Temperature 98.2 F 04/29/25 12:11 Pulse Rate 71 04/29/25 14:44 Respiratory Rate 16 04/29/25 14:44 Blood Pressure 130/65 04/29/25 14:28 Pulse Oximetry 100 04/29/25 14:44 Oxygen Delivery Me thod Room Air 04/29/25 14:44 MDM - Wound/Laceration Medical Decision Making Medical decision making: Differential diagnosis including but not limited to and based on the above HPI, review of systems and physical exam in this patient with lower extremity swelling and redness: Cellulitis, DVT, osteomyelitis, venous stasis dermatitis. Orders placed to evaluate differential diagnosis based on the above differential, HPI and physical exam Chest x-ray: Possible acute congestive heart failure with chronic abnormalities. Patient has no symptoms of CHF or pneumonia. This was reviewed and interpreted by myself the emergency room physician. I also reviewed the radiology report. Lab Review: Laboratory results were reviewed and interpreted by myself the emergency room physician. After 3 hours in several attempts at lab work being drawn the patient I decided that we would not do lab work today. I reviewed the patient's medical record. 84-year-old man with a history of right-sided heart failure, chronic venous stasis with dermatitis, chronic anticoagulation on Coumadin, coronary artery disease, hypertension, atrial fibrillation, pulmonary hypertension and thrombocytopenia Reexamination: Patient says he does not feel any more short of breath than usual. Swelling is not worse than usual. Whenever I rediscussed this with him he says he came to the emergency room just to get oral antibiotics and he will not be admitted to the hospital. He wants to see Dr. Matias tomorrow. He is had no fever. No new weakness. At this point I agree with him that we can just do antibiotics and lab work is not necessary if he is not going to stay no matter what the lab work shows Assessment and plan: Chronic wound Cellulitis - Discharged home - Discussed plan with patient. Answered any questions. - Evaluation and treatment of this problem were appropriate in the emergency setting. Lab Data Radiology Impressions Chest X-Ray 04/29/25 13:46 IMPRESSION: Abnormal chest with interval change as above. Possible superimposition of acute congestive failure on chronic abnormality. Less likely right lower lung pneumonitis. All radiology interpretation(s) finalized by discharge Discharge Plan Discharge Patient Disposition: Home Clinical Impression: Chronic wound, Cellulitis Condition: Stable Prescriptions: New cephalexin 500 mg tablet 500 mg PO TID 10 Days Qty: 30 0RF No Action nitroglycerin 0.4 mg tablet, sublingual See Rx Instructions .ROUTE .COMPLEX Qty: 25 5RF Dose Instruction: DISSOLVE ONE TABLET UNDER THE TONGUE EVERY 5 MINUTES NEEDED FOR CHEST PAIN. DO NOT EXCEED A TOTAL OF 3 DOSES IN 15 MINUTES Rx Instructions: DISSOLVE ONE TABLET UNDER THE TONGUE EVERY 5 MINUTES NEEDED FOR CHEST PAIN. DO NOT EXCEED A TOTAL OF 3 DOSES IN 15 MINUTES (DME) Walker See Rx Instructions .Route .MEDSUPPLY Qty: 1 0RF Rx Instructions: As directed atenolol 100 mg tablet 100 mg PO DAILY amlodipine 5 mg tablet 5 mg PO DAILY warfarin 3 mg tablet 3 mg PO DAILY losartan 25 mg tablet 25 mg PO QPM Discharge Orders: Discharge ED (Routine); Ordered 04/29/25 Ordered By: Kanwal Jimenez Referrals: Juventino Brown MD [Primary Care Provider, Family Practice] Discharge Diet: Usual diet Discharge Activity: Increase activity as tolerated Patient Instructions: Wound Infection (ED), Opioid Safety, Pain Management, Patient Portal & Monique Instructions Activity Restrictions/Additional Instructions: Thank you for choosing [facility] for your healthcare needs today. You have been screened and evaluated and felt safe for discharge. Health conditions do change or evolve sometimes and as such it is important that you follow up with your Primary Doctor to be re checked, 3-5 days is a general good time frame for follow up. You are always welcome to return to the ED for re assessment if your symptoms are worsening or you have new concerns Print Language: Macanese Coding Level of Care Code ED Tugboat Operator for Susan Negrete
--- NOTE | 2025-04-29 13:58 | PC.PHAR ---
Pt is from [facility]
[2025-04-29 14:28] VITALS: BP 130/65; PULSE 71; RESP 16; O2SAT 100
[2025-04-29 14:44] VITALS: PULSE 71; RESP 16; O2SAT 100
--- NOTE | 2025-04-29 15:32 | PC.NURSE ---
PATIENT DOES NOT WANT ANY INFORMATION GIVEN TO BROTHER BERYL FIGUEROA.
[2025-04-29 15:56] VITALS: BP 142/81; PULSE 80; O2SAT 99
== END 2025-04-29 15:57 | disposition home or self-care (01) ==
PROVIDERS: Emergency Provider Emergency Medicine; PCP Family Medicine
DX: S81.801A Unspecified open wound, right lower leg, initial encounter (principal); L03.115 Cellulitis of right lower limb; Z79.01 Long term (current) use of anticoagulants; I25.10 Atherosclerotic heart disease of native coronary artery without angina pectoris; I11.0 Hypertensive heart disease with heart failure; I50.9 Heart failure, unspecified; X58.XXXA Exposure to other specified factors, initial encounter
CPT/HCPCS: 36415; 71045; 87040; 99284

== ENCOUNTER → 2025-04-30 13:36 | Outpatient (BNVA) | payer MEDICARE, SELFPAY | PROVIDERS: PCP Family Medicine; Visit Provider Thoracic Surgery (Cardiothoracic Vascular Surgery) | DX: I96 Gangrene, not elsewhere classified (principal); L97.811 Non-pressure chronic ulcer of other part of right lower leg limited to breakdown of skin | CPT/HCPCS: 97597; 97598 ==

== ENCOUNTER → 2025-05-07 13:08 | Outpatient (BNVA) | payer MEDICARE, SELFPAY | PROVIDERS: PCP Family Medicine; Visit Provider Thoracic Surgery (Cardiothoracic Vascular Surgery) | DX: I96 Gangrene, not elsewhere classified (principal); L97.811 Non-pressure chronic ulcer of other part of right lower leg limited to breakdown of skin | CPT/HCPCS: 97597; 97598; A6252 ==

== ENCOUNTER → 2025-05-14 13:00 | Outpatient (BNVA) | payer MEDICARE, SELFPAY | PROVIDERS: PCP Family Medicine; Visit Provider Thoracic Surgery (Cardiothoracic Vascular Surgery) | DX: I96 Gangrene, not elsewhere classified (principal); I87.2 Venous insufficiency (chronic) (peripheral); L97.821 Non-pressure chronic ulcer of other part of left lower leg limited to breakdown of skin; L97.811 Non-pressure chronic ulcer of other part of right lower leg limited to breakdown of skin | CPT/HCPCS: 97597; 97598 ==

== ENCOUNTER 2025-05-15 13:00 | Outpatient (CLI) | payer MEDICARE, SELFPAY | END 2025-05-15 13:01 | disposition home or self-care (01) | LOC: LAB 05-24 07:59 | PROVIDERS: PCP Family Medicine; Visit Provider Family Medicine | DX: I11.0 Hypertensive heart disease with heart failure (principal); I50.9 Heart failure, unspecified; R15.9 Full incontinence of feces | CPT/HCPCS: 80053; 82607; 83690; 84153; 84443; 85025; 86140 ==

== ENCOUNTER → 2025-05-21 13:05 | Outpatient (BNVA) | payer MEDICARE, SELFPAY | PROVIDERS: PCP Family Medicine; Visit Provider Thoracic Surgery (Cardiothoracic Vascular Surgery) | DX: I96 Gangrene, not elsewhere classified (principal); L97.811 Non-pressure chronic ulcer of other part of right lower leg limited to breakdown of skin; I87.2 Venous insufficiency (chronic) (peripheral); L97.821 Non-pressure chronic ulcer of other part of left lower leg limited to breakdown of skin | CPT/HCPCS: 87493; 97597; 97598; A6253 ==

== ENCOUNTER → 2025-05-28 12:48 | Outpatient (BNVA) | payer MEDICARE, SELFPAY | PROVIDERS: PCP Family Medicine; Visit Provider Thoracic Surgery (Cardiothoracic Vascular Surgery) | DX: I96 Gangrene, not elsewhere classified (principal); L97.811 Non-pressure chronic ulcer of other part of right lower leg limited to breakdown of skin; Z09 Encounter for follow-up examination after completed treatment for conditions other than malignant neoplasm | CPT/HCPCS: 97597; 97598; A6253 ==

== ENCOUNTER 2025-06-03 13:01 | Outpatient (CLI) | payer MEDICARE, SELFPAY ==
--- NOTE | 2025-06-03 13:07 | CT_ITS ---
WS: [id number] CT ABDOMEN AND PELVIS WITH CONTRAST HISTORY: stool and urine incontinence TECHNIQUE: Imaging performed of the abdomen and pelvis with IV contrast. Single phase imaging of the abdomen. Coronal and sagittal reformats are submitted. All CT scans at [facility] use at least one of these dose optimization techniques: automated exposure control; mA and/or kV adjustment per patient size (includes targeted exams where dose is matched to clinical indication); or iterative reconstruction. IV CONTRAST: Omnipaque 350; 100 mL IV. Oral contrast: Yes. DLP: 514.43 mGy.cm COMPARISON: Ultrasound abdomen 03/07/2025 Lower thorax: Small bilateral pleural effusions. Markedly enlarged heart. Pulmonary artery is dilated to 3.7 cm. No hiatal hernia. Liver/biliary system: Liver is small size. Nodular surface of the liver suggesting cirrhosis. Tricuspid regurgitation into the hepatic veins. No mass identified within the liver. Portal vein evaluation is limited. Gallbladder: Normal. No gallstones or wall thickening. No pericholecystic fluid. Pancreas: Normal size pancreas and pancreatic duct. No adjacent inflammation. Spleen: Slightly enlarged spleen at 13.0 cm in length. 5 mm nonenhancing low- attenuation mass in the spleen is probably a cyst. Adrenal glands: Normal. Right kidney: Mild perinephric stranding. No obstruction. Left kidney: Mild perinephric stranding. No obstruction. Aorta: Mild atherosclerosis with no aneurysm. Lymphadenopathy: There are a few mesenteric lymph nodes identified. There is omental edema and mesenteric edema. Omental stranding is probably due to edema. Free fluid: Moderate to large amount of ascites. The amount of ascites has increased since the ultrasound of 03/07/2025. GI tract: No GI tract obstruction. Abdominal wall: Soft tissue anasarca. No hernia identified. Pelvis: Urinary bladder is moderately well distended. There is ascites and soft tissue anasarca. Bones: Degenerative joint disease involving the hips. CT/CT abdomen pelvis w con* [id number] IMPRESSION: 1. Moderate to large amount of ascites has progressed since the ultrasound of 03/07/2025. 2. Small bilateral pleural effusions. 3. Omental soft tissue stranding is probably on the basis of edema. 4. Cirrhotic liver. 5. Pulmonary hypertension. 6. Markedly enlarged heart. Severe atrial dilatation. 7. Tricuspid regurgitation into the hepatic veins. 8. No renal obstruction. 9. Soft tissue anasarca. 10. Mild atherosclerotic disease in the aorta and mesenteric arteries.
[2025-06-03] MEDS: iohexol 350 mg/mL 500 mL Btl (per mL) PO (14:19)
[2025-06-03] MEDS: iohexol 350 mg/mL 500 mL Btl (per mL) IV (14:48)
== END 2025-06-03 13:02 | disposition home or self-care (01) ==
LOC: RAD 13:03
PROVIDERS: PCP Family Medicine; Visit Provider Family Medicine
DX: R19.7 Diarrhea, unspecified (principal); J90 Pleural effusion, not elsewhere classified; I51.7 Cardiomegaly; I36.1 Nonrheumatic tricuspid (valve) insufficiency; R16.1 Splenomegaly, not elsewhere classified; R59.0 Localized enlarged lymph nodes; R18.8 Other ascites; M16.0 Bilateral primary osteoarthritis of hip; I27.20 Pulmonary hypertension, unspecified
CPT/HCPCS: 74177

== ENCOUNTER → 2025-06-04 10:47 | Outpatient (BNVA) | payer MEDICARE, SELFPAY | PROVIDERS: PCP Family Medicine; Visit Provider Thoracic Surgery (Cardiothoracic Vascular Surgery) | DX: I96 Gangrene, not elsewhere classified (principal); L97.811 Non-pressure chronic ulcer of other part of right lower leg limited to breakdown of skin | CPT/HCPCS: 97597; 97598; A6212; A6252 ==

== ENCOUNTER → 2025-06-11 13:05 | Outpatient (BNVA) | payer MEDICARE, SELFPAY | PROVIDERS: PCP Family Medicine; Visit Provider Thoracic Surgery (Cardiothoracic Vascular Surgery) | DX: I96 Gangrene, not elsewhere classified (principal); L97.811 Non-pressure chronic ulcer of other part of right lower leg limited to breakdown of skin | CPT/HCPCS: 97597; 97598; A6252 ==

== ENCOUNTER → 2025-06-17 11:51 | Outpatient (BNVA) | payer MEDICARE, SELFPAY | PROVIDERS: PCP Family Medicine; Visit Provider Family Medicine | DX: K74.60 Unspecified cirrhosis of liver (principal) | CPT/HCPCS: 80048; 80074; 82525; 83550; 86140 ==

== ENCOUNTER → 2025-06-18 10:56 | Outpatient (BNVA) | payer MEDICARE, SELFPAY | PROVIDERS: PCP Family Medicine; Visit Provider Thoracic Surgery (Cardiothoracic Vascular Surgery) | DX: I87.2 Venous insufficiency (chronic) (peripheral) (principal); L97.811 Non-pressure chronic ulcer of other part of right lower leg limited to breakdown of skin | CPT/HCPCS: 97597; 97598; A6252 ==

== ENCOUNTER → 2025-07-02 10:51 | Outpatient (BNVA) | payer MEDICARE, SELFPAY | PROVIDERS: PCP Family Medicine; Visit Provider Thoracic Surgery (Cardiothoracic Vascular Surgery) | DX: I96 Gangrene, not elsewhere classified (principal); I87.2 Venous insufficiency (chronic) (peripheral); L97.811 Non-pressure chronic ulcer of other part of right lower leg limited to breakdown of skin | CPT/HCPCS: 97597; 97598; A6252 ==

== ENCOUNTER → 2025-07-09 12:40 | Outpatient (BNVA) | payer MEDICARE, SELFPAY | PROVIDERS: PCP Family Medicine; Visit Provider Thoracic Surgery (Cardiothoracic Vascular Surgery) | DX: I96 Gangrene, not elsewhere classified (principal); L97.811 Non-pressure chronic ulcer of other part of right lower leg limited to breakdown of skin; Z09 Encounter for follow-up examination after completed treatment for conditions other than malignant neoplasm | CPT/HCPCS: 97597; 97598; A6220 ==

== ENCOUNTER → 2025-07-10 13:47 | Outpatient (BNVA) | payer MEDICARE, SELFPAY | PROVIDERS: PCP Family Medicine; Visit Provider Internal Medicine Cardiovascular Disease | DX: I25.10 Atherosclerotic heart disease of native coronary artery without angina pectoris (principal); I10 Essential (primary) hypertension; I48.91 Unspecified atrial fibrillation; Z79.01 Long term (current) use of anticoagulants; I27.20 Pulmonary hypertension, unspecified; Z95.5 Presence of coronary angioplasty implant and graft | CPT/HCPCS: 99214 ==

== ENCOUNTER → 2025-07-16 11:03 | Outpatient (BNVA) | payer MEDICARE, SELFPAY | PROVIDERS: PCP Family Medicine; Visit Provider Thoracic Surgery (Cardiothoracic Vascular Surgery) | DX: I96 Gangrene, not elsewhere classified (principal); L97.811 Non-pressure chronic ulcer of other part of right lower leg limited to breakdown of skin | CPT/HCPCS: 97597; 97598 ==